=== PATIENT | female | born 1945 | race Caucasian/White ===

== ENCOUNTER 2023-12-30 17:01 | Inpatient (IN) | payer OTHER, BC ==
[2023-12-30 18:14] LABS: Absolute Lymphocytes (CBC) 0.7 K/uL (0.7-4.9); Absolute Monocytes 0.8 K/uL (0.1-1.3); Absolute Neutrophil 14.9 K/uL (1.8-8.0); Basophils % 0.1 % (0-1.3); Eosinophils % 0.1 % (0-4.4); Hematocrit 40.2 % (36.0-45.0); Hemoglobin 13.6 g/dL (12.0-15.0); Lymphocytes % 4.1 % (15.3-44.8); MCH 30.2 pg (27.0-35.0); MCHC 33.8 g/dL (32.0-36.0); MCV 89.4 fL (80-100); Monocytes % 4.9 % (3.3-12.3); Neutrophils % 90.8 % (41.7-73.7); Nucleated Red Blood Cells % 0.1 % (0-0); Platelets 398 thou/uL (152-406)
[2023-12-30 18:31] LABS: Specific Gravity > 1.030 (1.005-1.030); Sqamous Epithelial 20-50 /HPF (None Seen); Urine Bacteria <20 /HPF (<20); Urine Bilirubin 1+ (Negative); Urine Blood Negative (Negative); Urine Clarity Extremely Turbid (Clear); Urine Color Yellow (Yellow); Urine Culture Reflex Order NOT NEEDED; Urine Glucose NEGATIVE (Negative); Urine Ketones 2+ (Negative); Urine Microscopic Reflex YN ORDER UMIC; Urine Mucus 4+ /HPF (None Seen); Urine Nitrite NEGATIVE (Negative); Urine Protein 2+ (Negative); Urine RBC <5 /HPF (None Seen); Urine Urobilinogen 1+ (Normal); Urine WBC <5 /HPF (<5); Urine pH 5.5 (5.0-7.0)
[2023-12-30 18:35] LABS: Anion Gap 16.1 mEq/L (5.0-15.0); Bilirubin Total 0.7 mg/dL (0.2-1.0); Globulin 4.2 g/dL (2.3-3.5); Potassium 4.1 mEq/L (3.5-5.1); Protein, Total 8.2 g/dL (6.4-8.2)
[2023-12-30 18:36] LABS: Blood Morphology Comment NOT SEEN (NOT SEEN); Platelet Estimate ADEQ; White Blood Cell Scan OK (OK)
--- NOTE | 2023-12-30 18:55 | RAD REPORT ---
EXAM DESCRIPTION: US - Abdomen Exam Limited - 12/30/2023 6:49 pm CLINICAL HISTORY: ABD PAIN COMPARISON: <Comparisons> FINDINGS: The gallbladder demonstrates no gallstones. No pericholecystic fluid or gallbladder wall t hickening. The common bile duct is normal measuring 3 mm. The liver demonstrates no findings of intrahepatic biliary dilatation. IMPRESSION: Unremarkable examination.
[2023-12-30] MEDS ORDERED: FAMOTIDINE 20 MG/2 ML VIAL IV ONE (19:15)
[2023-12-30] MEDS ORDERED: NA CHLORIDE 0.9% 1,000 ML ONE (19:15)
[2023-12-30] MEDS ORDERED: ONDANSETRON 4 MG/2 ML VIAL ONE ×2 (19:15→23:55)
--- NOTE | 2023-12-30 19:40 | RAD REPORT ---
EXAM DESCRIPTION: CTAbdomen Pelvis W Contrast - 12/30/2023 7:32 pm CLINICAL HISTORY: Abdominal pain. ABD PAIN COMPARISON: <Comparisons> TECHNIQUE: Biphasic CT imaging of the abdomen and pelvis was performed with 100 ml non-ionic IV cont rast. All CT scans are performed using dose optimization technique as appropriate and may include automated exposure control or mA/KV adjustment according to patient size. FINDINGS: The lung bases are clear. The liver, spleen, pancreas, adrenal glands and kidneys are within normal limits. Multiple fluid-filled dilated small bowel loops are present throughout the abdomen compatible with a moderate mechanical small-bowel obstruction. No free air is seen. 4 cm jejunal diverticula noted. No evidence of significant lymphadenopathy. Mild lumbar degenerative changes. IMPRESSION: Multiple fluid-filled dilated small bowel loops compatible with moderate mechanical smal l-bowel obstruction.
--- NOTE | 2023-12-30 20:00 | EDPHYS ---
Physician Documentation [facility] Name: Cassy Del Rio Age: 78 yrs Sex: Female : 1945 Arrival Date: 12/30/2023 Time: 17:01 Bed 20 Private MD: Srinivas [facility] ED Physician Faustino Martino HPI: 12/29 18:15 This 78 yrs old Female presents to ER via Ambulatory with complaints of Vomiting. kb 18:15 Pt is a 78 year old female who presents for vomiting and upper abd pain that started kb this morning. Denies diarrhea/constipation, fever. States she is unable to tolerate anything by mouth. Denies sick contacts. . Historical: - Allergies: 17:27 No Known Allergies; ap3 - Home Meds: 17:27 None [Active]; ap3 - PMHx: 17:27 None; ap3 - Immunization history:: Client reports receiving the 2nd dose of the Covid vaccine. - Infectious Disease History:: Denies. - Social history:: Smoking status: Patient denies any tobacco usage or history of. ROS: 18:15 Constitutional: As per HPI kb Exam: 18:15 Constitutional: This is a well developed, well nourished patient who is awake, alert, kb and in no acute distress. Head/Face: Normocephalic, atraumatic. ENT: Moist Mucous membranes Cardiovascular: Regular rate Respiratory: Respirations even and unlabored. No increased work of breathing. Talking in full sentences Skin: Warm, dry with normal turgor. Normal color. MS/ Extremity: Pulses equal, no cyanosis. Neurovascular intact. Full, normal range of motion. Neuro: Awake and alert, GCS 15, oriented to person, place, time, and situation. Moves all extremities. Normal gait. 18:15 Abdomen/GI: Inspection: abdomen appears normal, Bowel sounds: normal, Palpation: soft, in all quadrants, mild abdominal tenderness, in the epigastric area and right upper quadrant, Vital Signs: 17:26 BP 139 / 77; Pulse 82; Resp 17; Temp 98.1; Pulse Ox 100% ; Weight 63.05 kg; Height 5 mb9 ft. 5 in. ; 19:25 BP 134 / 74; Pulse 74; Resp 18; Pulse Ox 100% on R/A; mb9 17:26 Body Mass Index 23.13 (63.05 kg, 165.1 cm) mb9 MDM: 17:25 Patient medically screened. kb 18:16 Differential diagnosis: Nonspecific abd pain, gastritis, cholecystitis, cholelithiasis. kb Data reviewed: vital signs, nurses notes. 19:58 Consideration of Admission/Observation Patient was admitted/placed on observation. kb Escalation of care including admission/observation considered. Management of patient was discussed with the following: Hospitalist: Dr Dunn accepts pt for admission. Signal Helper: Dr Ferrell accepts pt for consult. Counseling: I had a detailed discussion with the patient and/or guardian regarding the historical points, exam findings, and any diagnostic results supporting the discharge/admit diagnosis, lab results, radiology results, the need for further work-up and treatment in the hospital. 12/29 17:29 Order name: CBC with Diff; Complete Time: 18:43 kb 12/29 17:29 Order name: CMP; Complete Time: 18:43 kb 12/29 17:29 Order name: Lipase; Complete Time: 18:43 kb 12/29 17:29 Order name: Urinalysis w/ reflexes; Complete Time: 18:43 kb 12/29 18:37 Order name: CBC Smear Scan; Complete Time: 18:43 EDID 12/29 20:10 Order name: CBC with Automated Diff [facility] 12/29 20:10 Order name: CBC with Automated Diff [facility] 12/29 20:10 Order name: Comprehensive Metabolic Panel [facility] 12/29 20:10 Order name: Comprehensive Metabolic Panel [facility] 12/29 20:10 Order name: Lipid Profile [facility] 12/29 20:10 Order name: Lipid Profile [facility] 12/29 17:29 Order name: US Abdomen Limited; Complete Time: 18:56 kb 12/29 18:56 Order name: CT Abd/Pelvis - IV Contrast Only; Complete Time: 19:43 kb 12/29 20:15 Order name: Abdomen 1 View (KUB) EDID 12/29 20:15 Order name: Abdomen 1 View (KUB) EDID 12/29 20:15 Order name: Abdomen 1 View (KUB) [facility] 12/29 20:10 Order name: CONS Physician Consult [facility] 12/29 17:29 Order name: IV Saline Lock; Complete Time: 18:06 kb 12/29 17:29 Order name: Labs collected and sent; Complete Time: 18:06 kb Administered Medications: 19:15 Drug: NS 0.9% IV 1000 ml IV at 1 bolus Per protocol; 1000 mL bolus Route: IV; Rate: 1 mb9 bolus; Site: left antecubital; 19:21 Drug: Famotidine IVP 20 mg IVP once; dilute with 10 mL 0.9% NaCl; give over 2 minutes mb9 Route: IVP; Site: left antecubital; 20:57 Follow up: Response: No adverse reaction cp4 19:22 Drug: Ondansetron IVP 4 mg IVP once; over 2 minutes Route: IVP; Site: left antecubital; mb9 20:57 Follow up: Response: No adverse reaction cp4 Disposition Summary: 12/30/23 19:59 Hospitalization Ordered Notes: Hospitalization Status: Observation kb Provider: Isamar Dunn Condition: Stable kb Problem: new kb Symptoms: are unchanged kb Bed/Room Type: Standard kb Location: Telemetry/MedSurg (observation)(12/31/23 13:25) 6 Room Assignment: [facility](12/31/23 13:25) 6 Diagnosis - Moderate mechanical small bowel obstruction kb Forms: - Medication Reconciliation Form kb - SBAR form kb - Leadership Thank You Letter kb Signatures: Dispatcher [employer] EDEufemia Uribe, ENEDINA COLEYP-Alfredo Gramajo, RN RN jb4 Chen Gifford RN RN ap3 Klarissa Zapata RN RN mb9 Hilda Oseguera bc6 Tere Melvin cp4 Corrections: (The following items were deleted from the chart) 22: 19:59 Telemetry/MedSurg (observation) kb jb4 22: 19:59 kb jb4 12/30 13:25 06 22:09 [facility] ER HOLD jb bc6 12/30 13: 06 22:09 ERHOLD- [facility]6
--- NOTE | 2023-12-30 20:00 | ER ---
Nurse's Notes [facility] Name: Cassy Del Rio Age: 78 yrs Sex: Female : 1945 Arrival Date: 12/30/2023 Time: 17:01 Bed 20 Private MD: Akbar Espino Diagnosis: Moderate mechanical small bowel obstruction Presentation: 12/29 17:26 Chief complaint: Patient states: she started vomiting this morning. patient states the ap3 vomiting is a burning sensation. Coronavirus screen: At this time, the client does not indicate any symptoms associated with coronavirus-19. Ebola Screen: No symptoms or risks identified at this time. Initial Sepsis Screen: Does the patient meet any 2 criteria? No. Patient's initial sepsis screen is negative. Does the patient have a suspected source of infection? No. Patient's initial sepsis screen is negative. Risk Assessment: Do you want to hurt yourself or someone else? Patient reports no desire to harm self or others. Onset of symptoms was December 30, 2023. 17:26 Method Of Arrival: Ambulatory ap3 17:26 Acuity: SARAN 3 ap3 Triage Assessment: 17:27 General: Appears in no apparent distress. Behavior is calm, cooperative, appropriate ap3 for age. Pain: Complains of pain in abdomen Quality of pain is described as burning, Pain began this morning. Neuro: Level of Consciousness is awake, alert, obeys commands, Oriented to person, place, time, situation, Appropriate for age. Cardiovascular: Patient's skin is warm and dry. Respiratory: Airway is patent Respiratory effort is even, unlabored, Respiratory pattern is regular, symmetrical. GI: Reports lower abdominal pain, upper abdominal pain, nausea, vomiting. Historical: - Allergies: 17:27 No Known Allergies; ap3 - Home Meds: 17:27 None [Active]; ap3 - PMHx: 17:27 None; ap3 - Immunization history:: Client reports receiving the 2nd dose of the Covid vaccine. - Infectious Disease History:: Denies. - Social history:: Smoking status: Patient denies any tobacco usage or history of. Screenin:28 Abuse screen: Denies threats or abuse. ap3 17:28 Nutritional screening: No deficits noted. Tuberculosis screening: No symptoms or risk ap3 factors identified. 19:10 [facility] ED Fall Risk Assessment (Adult) History of falling in the last 3 months, mb9 including since admission No falls in past 3 months (0 pts) Confusion or Disorientation No (0 pts) Intoxicated or Sedated No (0 pts) Impaired Gait No (0 pts) Mobility Assist Device Used No (0 pt) Altered Elimination No (0 pt) Score/Fall Risk Level 0 - 2 = Low Risk Oriented to surroundings, Maintained a safe environment, Educated pt \T\ family on fall prevention, incl call for assistance when getting out of bed. Assessment: 19:20 General: Appears in no apparent distress. Behavior is calm, cooperative. Pain: mb9 Complains of pain in abdomen Pain radiates to right upper quadrant and epigastric area Quality of pain is described as throbbing, Pain began suddenly. Neuro: Ch Agitation-Sedation Scale (RASS): 0 - Alert and Calm Level of Consciousness is awake, alert, obeys commands, Oriented to person, place, time, situation, Appropriate for age. Cardiovascular: Patient's skin is warm and dry. Respiratory: Airway is patent Respiratory effort is even, unlabored, Respiratory pattern is regular, symmetrical. GI: Abdomen is flat, non-distended, Bowel sounds present X 4 quads. Abd is soft and non tender X 4 quads. Reports nausea, vomiting. : No signs and/or symptoms were reported regarding the genitourinary system. EENT: No signs and/or symptoms were reported regarding the EENT system. Derm: Skin is pink, warm \T\ dry. Musculoskeletal: Range of motion: intact in all extremities. Vital Signs: 17:26 BP 139 / 77; Pulse 82; Resp 17; Temp 98.1; Pulse Ox 100% ; Weight 63.05 kg; Height 5 mb9 ft. 5 in. ; 19:25 BP 134 / 74; Pulse 74; Resp 18; Pulse Ox 100% on R/A; mb9 17:26 Body Mass Index 23.13 (63.05 kg, 165.1 cm) mb9 ED Course: 17:04 Patient arrived in ED. mr 17:04 Akbar Espino DO is Private Physician. mr 17:25 Eufemia Ryan FNP-C is [facility]. kb 17:25 Faustino Martino MD is Attending Physician. kb 17:27 Triage completed. ap3 17:28 Arm band placed on right wrist. ap3 18:06 CBC with Diff Sent. bc6 18:06 CMP Sent. bc6 18:06 Lipase Sent. bc6 18:06 Initial lab(s) drawn, by me, sent to lab. Inserted saline lock: 22 gauge in left bc6 antecubital area, using aseptic technique. Blood collected. 18:51 US Abdomen Limited In Process Unspecified. EDMS 19:20 Klarissa Zapata, RN is Primary Nurse. mb9 19:21 No provider procedures requiring assistance completed. mb9 19:30 Placed in gown. Bed in low position. Call light in reach. Side rails up X 1. Provided mb9 Education on: press call light if needing anything. Client placed on continuous cardiac and pulse oximetry monitoring. NIBP monitoring applied. 19:34 CT Abd/Pelvis - IV Contrast Only In Process Unspecified. EDMS 19:59 Isamar Dunn MD is Hospitalizing Provider. kb 20:30 Report given to SELENE Carranza. mb9 20:30 Patient admitted, IV remains in place. mb9 20:57 Tere Melvin is Primary Nurse. cp4 Administered Medications: 19:15 Drug: NS 0.9% IV 1000 ml IV at 1 bolus Per protocol; 1000 mL bolus Route: IV; Rate: 1 mb9 bolus; Site: left antecubital; 19:21 Drug: Famotidine IVP 20 mg IVP once; dilute with 10 mL 0.9% NaCl; give over 2 minutes mb9 Route: IVP; Site: left antecubital; 20:57 Follow up: Response: No adverse reaction cp4 19:22 Drug: Ondansetron IVP 4 mg IVP once; over 2 minutes Route: IVP; Site: left antecubital; mb9 20:57 Follow up: Response: No adverse reaction cp4 Medication: 20:47 VIS not applicable for this client. mb9 Outcome: 19:59 Decision to Hospitalize by Provider. kb 12/30 01:08 Admitted to ER Hold. Please see [facility] for further documentation. cp4 Condition: stable Instructed on the need for admit, 14:40 Patient left the ED. hb Signatures: Dispatcher [employer] EDWV Eufemia Ryan, PRINCIPAL NETWORK ARCHITECT-C PRINCIPAL NETWORK ARCHITECT-Klarissa Bhandari, Reg Reg Maritza Ziegler RN RN Chen Freeman RN RN ap3 Klarissa Zapata RN RN mb9 Hilda Oseguera 6 Tere Melvin cp4 Corrections: (The following items were deleted from the chart) 12/29 19:10 17:26 BP 139 / ???; Pulse 82bpm; Resp 17bpm; Pulse Ox 100%; Temp 98.1F; 63.05 kg; mb9 Height 5 ft. 5 in.; BMI: 23.1; ap3
[2023-12-30] MEDS ORDERED: MORPHINE 2 MG/ML SYR IV PRN (20:05)
[2023-12-30] MEDS ORDERED: ALBUTEROL 2.5 MG/3 ML NEB SOL NEB PRN (20:05)
--- NOTE | 2023-12-30 20:12 | P.HP ---
Certification for Inpatient With expected LOS: >2 Midnights Patient will require the following post-hospital care: None Practitioner: I am a practitioner with admitting privileges, knowledge of patient current condition, hospital course, and medical plan of care. Services: Services provided to patient in accordance with Admission requirements found in Title 42 Section 412.3 of the Code of Federal Regulations Patient History Date of Service: 12/30/23 Reason for admission: abdominal pain History of Present Illness: 78-year-old female with past medical history of diet-controlled hypertension, previous hysterectomy, who presented with abdominal pain, right upper quadrant, onset earlier this morning upon waking up. Pain is associated with recurrent bouts of vomiting and nausea. Patient denies any associated diarrhea or constipation. She has not had any bowel movement since the last 1 day. She denies any fever or chills. She had his colonoscopy 1 year ago that was u nremarkable Arrival in the ED vital signs were stable, CT of the abdomen and pelvics shows evidence of multiple loops of bowel consistent with mechanical small bowel obstruction. Accidentally noted 4 cm jejunal diverticulum. CBC shows WBC of 16,000 but with no differential significant differential and BMP were unremarkable. General surgery consult has been obtained. Patient has been admitted for small bowel obstruction Allergies No Known Allergies Allergy (Unverified 09/11/16 18:50) - Past Medical/Surgical History -: Hypertension -: Hysterectomy - Family History Family History: Reviewed- Non-Contributory - Social History Smoking Status: Never smoker Counseled patient to stop smoking for: less than 10 minutes Smoking therapy provided: No Patient receptive to therapy: No Alcohol use: No CD- Drugs: No Caffeine use: Yes Place of Residence: Home Review of Systems Gastrointestinal: Nausea, Abdominal Pain, Distention Physical Examination - Physical Exam General: Alert, In no apparent distress, Oriented x3 HEENT: Atraumatic, Normocephalic Neck: Supple, 2+ carotid pulse no bruit, JVD not distended Respiratory: Clear to auscultation bilaterally, Normal air movement Cardiovascular: No edema, Normal pulses, Regular rate/rhythm, Normal S1 S2 Gastrointestinal: No ascites, No tenderness, Hyperactive, Distended Musculoskeletal: No clubbing, No swelling Neurological: Normal gait, Normal speech, Normal strength at 5/5 x4 extr, Cranial nerves 3-12 intact - Studies Laboratory Data (last 24 hrs) 12/30/23 12/30/23 18:05 18:05 WBC 16.40 H Hgb 13.6 Hct 40.2 Plt Count 398 Sodium 138 Potassium 4.1 BUN 19 H Creatinine 0.92 Glucose 174 H Total Bilirubin 0.7 AST 13 L ALT 19 Alkaline Phosphatase 80 Lipase 20 Assessment and Plan - Plan Impression Small bowel obstruction Hypertensiondiet controlled LeukocytosisMay be reactive Plan Admit to inpatient General: Surgery consult in a.m. Keep n.p.o. NG tube with low suction if recurrent bouts of vomiting Daily KUB to monitor progression of obstruction Antiemetics as needed Monitor WBC, no empirical antibiotics for now Pain control Lovenox for DVT prophylaxis Full code Possible discharge in 2 to 3 days. - Advance Directives Does patient have a Living Will: No Does patient have a Durable POA for Healthcare: No Physician Review: Patient Assessed, Agree with Above Assessment and Plan Time Spent Managing Pts Care (In Minutes): 65
[2023-12-30] MEDS: D5 0.9 NS 1,000 ML IV SCH (21:00)
[2023-12-30] MEDS: FAMOTIDINE 20 MG/2 ML VIAL IV SCH (21:00)
[2023-12-30] MEDS ORDERED: FAMOTIDINE 20 MG TAB ONE (22:32)
[2023-12-30] MEDS ORDERED: D5W 0 ML IV ONE (22:33)
[2023-12-30] MEDS ORDERED: D5 0.9 NS 1,000 ML IV ONE (23:00)
[2023-12-30] MEDS: ONDANSETRON 4 MG/2 ML VIAL IV PRN (23:57)
[2023-12-31 04:47] LABS: Absolute Lymphocytes (CBC) 0.8 K/uL (0.7-4.9); Absolute Monocytes 0.9 K/uL (0.1-1.3); Absolute Neutrophil 13.1 K/uL (1.8-8.0); Basophils % 0.2 % (0-1.3); Hematocrit 37.8 % (36.0-45.0); Hemoglobin 12.8 g/dL (12.0-15.0); Lymphocytes % 5.2 % (15.3-44.8); MCH 30.4 pg (27.0-35.0); MCV 89.4 fL (80-100); MPV 8.1 fL (7.6-11.3); Monocytes % 6.3 % (3.3-12.3); Platelets 357 thou/uL (152-406); RBC Red Blood Cell Count 4.23 M/uL (3.86-4.86); Red Cell Distribution Width 13.1 % (12.1-15.2)
[2023-12-31 04:49] LABS: Neutrophils % 88.3 % (41.7-73.7)
[2023-12-31 05:02] LABS: ALT/SGPT 16 U/L (13-56); Albumin 3.3 g/dL (3.4-5.0); Albumin/Globulin Ratio 0.9 (1.1-1.8); Alkaline Phosphatase 67 U/L (45-117); BUN Blood Urea Nitrogen 15 mg/dL (7-18); Bicarbonate 30 mEq/L (21-32); Bilirubin Total 0.6 mg/dL (0.2-1.0); Globulin 3.7 g/dL (2.3-3.5); Glomerular Filtration Rate 71 ml/min (=/>90); Glucose Level 188 mg/dL (74-106); HDL Cholesterol 72 mg/dL (40-60); LDL Cholesterol, Calculated 80 mg/dL (<130); LDL Cholesterol,Calc NonReport 80; Sodium Level 136 mEq/L (136-145)
[2023-12-31 05:15] LABS: AST/SGOT < 10 U/L (15-37)
--- NOTE | 2023-12-31 07:30 | P.PN ---
Date of Service: 12/31/23 Subjective: emesis this morning ~4am still feels distended, no flatus, no BM no worsening ROS: 10 point ROS as noted above, otherwise negative Physical Exam: GEN: Alert, oriented, NAD HEENT: Normal conjunctiva, sclera anicteric CV: Regular rate and rhythm, no edema Pulm: Nonlabored respirations on room air, clear bilaterally ABD: abdominal tenderness, moderately distended Neuro: Normal speech, normal affect vitals reviewed Problem List: Mechanical small bowel obstruction Incidental 4cm jejunal diverticula Hypertension-diet controlled Reports RUQ / upper abdominal pain with associated nausea/vomiting for ~1-2 days. Denies diarrhea/constipation/fever reports colonoscopy ~1 year ago was unremarkable CT abdomen (12/29): Moderate small bowel obstruction. 4 cm jejunal diverticula KUB (12/30): mild-mod SBO minimally less dilated Dr. Ferrell, general surgeon consulted to eval continue IV fluids while NPO PRN analgesics / antiemetics afebrile, Leukocytosis improving 16.4 -> 14.8 (12/30) recommended NGT, patient would like to defer for now discussed if another episode of emesis or any worsening symptoms, would strongly recommend NGT placement VTE: Lovenox Code: Full Dispo: Home, ~2-3 days Pending resolution of SBO
--- NOTE | 2023-12-31 07:32 | RAD REPORT ---
EXAM DESCRIPTION: RAD - Abdomen 1 View (KUB) - 12/31/2023 4:39 am CLINICAL HISTORY: Abdomen pain FINDINGS: Mildly to moderately dilated small bowel is minimally less dilated than December 30, 2023. Air within the colon remains diminished. This is compatible with small bowel obstruction
[2023-12-31] MEDS: ENOXAPARIN 40 MG/0.4 ML SQ SCH (09:00)
[2023-12-31] MEDS ORDERED: ENOXAPARIN 40 MG/0.4 ML SQ ONE (09:00)
[2023-12-31] MEDS ORDERED: FAMOTIDINE 20 MG/2 ML VIAL IV ONE (09:01)
[2023-12-31] MEDS ORDERED: D5 0.9 NS 1,000 ML IV ONE (09:55)
[2023-12-31] MEDS: PNEUMOCOCCAL VACCINE 0.5 ML IMVAC ONE (12:00)
[2024-01-01 06:54] LABS: Absolute Eosinophils 0.1 K/uL (0-0.5); Absolute Lymphocytes (CBC) 0.9 K/uL (0.7-4.9); Absolute Monocytes 0.6 K/uL (0.1-1.3); Absolute Neutrophil 4.8 K/uL (1.8-8.0); Basophils % 0.3 % (0-1.3); Eosinophils % 1.2 % (0-4.4); Hematocrit 31.4 % (36.0-45.0); Hemoglobin 10.5 g/dL (12.0-15.0); Lymphocytes % 14.7 % (15.3-44.8); MCH 30.4 pg (27.0-35.0); MCHC 33.4 g/dL (32.0-36.0); MPV 8.6 fL (7.6-11.3); Neutrophils % 74.8 % (41.7-73.7); Platelets 272 thou/uL (152-406); RBC Red Blood Cell Count 3.45 M/uL (3.86-4.86); Red Cell Distribution Width 12.9 % (12.1-15.2)
[2024-01-01 07:07] LABS: Albumin 2.5 g/dL (3.4-5.0); Albumin/Globulin Ratio 0.8 (1.1-1.8); Alkaline Phosphatase 50 U/L (45-117); Anion Gap 6.5 mEq/L (5.0-15.0); BUN Blood Urea Nitrogen 16 mg/dL (7-18); Bicarbonate 25 mEq/L (21-32); Bilirubin Total 0.3 mg/dL (0.2-1.0); Globulin 3.1 g/dL (2.3-3.5); Glomerular Filtration Rate 93 ml/min (=/>90); Glucose Level 132 mg/dL (74-106); Magnesium 2.1 mg/dL (1.6-2.4); Potassium 3.5 mEq/L (3.5-5.1); Protein, Total 5.6 g/dL (6.4-8.2); Sodium Level 142 mEq/L (136-145)
[2024-01-01 07:18] LABS: ALT/SGPT < 14 U/L (13-56); AST/SGOT < 10 U/L (15-37)
--- NOTE | 2024-01-01 07:35 | RAD REPORT ---
EXAM DESCRIPTION: RAD - Abdomen 1 View (KUB) - 01/01/2024 6:10 am CLINICAL HISTORY: Abdomen pain FINDINGS: Moderately dilated small bowel appears mildly worsened since the prior exam. Air in the co kevin is diminished. This is compatible with a worsening small bowel obstruction
--- NOTE | 2024-01-01 08:54 | P.PN ---
Date of Service: 01/01/24 Subjective: 1 liquid BM with relief earlier this morning after repeat KUB this morning doesn't feel anything is worse. Abdomen feels softer on exam agreeable to NGT if needed but would like to avoid if possible no nausea today. Hasn't need zofran in ~2 days afebrile ROS: 10 point ROS as noted above, otherwise negative Physical Exam: GEN: Alert, oriented, NAD HEENT: Normal conjunctiva, sclera anicteric CV: Regular rate and rhythm, no edema Pulm: Nonlabored respirations on room air, clear bilaterally ABD: mild-mod abdominal tenderness, mild distention, but soft Neuro: Normal speech, normal affect vitals reviewed Problem List: Mechanical small bowel obstruction Incidental 4cm jejunal diverticula Hypertension-diet controlled Reported RUQ / upper abdominal pain with associated nausea/vomiting for ~1-2 days. Denies diarrhea/constipation/fever colonoscopy ~1 year ago was unremarkable per patient CT abdomen (12/29): Moderate small bowel obstruction. 4 cm jejunal diverticula KUB (12/30): mild-mod SBO minimally less dilated repeat KUB (12/31): mildly worsening SBO patient feels some improvement after having a BM after KUB xray. +No nausea in > [address] Ferrell, general surgeon consulted continue IV fluids while NPO PRN analgesics / antiemetics afebrile, Leukocytosis resolved (12/31) clinically improving, can hold off NG tube for now discussed if worsens, will need NG tube possible advance diet later today vs tomorrow VTE: Lovenox Code: Full Dispo: Home, ~1-2 days Pending resolution of SBO
[2024-01-01] MEDS: HYDRALAZINE HCL 20 MG/ML VIAL IV PRN (17:17)
--- NOTE | 2024-01-02 06:48 | RAD REPORT ---
EXAM DESCRIPTION: RAD - Abdomen 1 View (KUB) - 01/02/2024 5:41 am CLINICAL HISTORY: f/u SBO COMPARISON: Abdomen 1 View (KUB) dated 01/01/2024; Abdomen 1 View (KUB) dated 12/31/2023; Abdomen Pelv is W Contrast dated 12/30/2023 FINDINGS: Similar diffusely dilated small bowel measuring up to 4 cm. No acute osseous abnormality.V isualized lungs are unremarkable.No abnormal calcifications. IMPRESSION: No significant change. Findings remain consistent with small bowel obstruction.
--- NOTE | 2024-01-02 11:37 | P.PN ---
Date of Service: 01/02/24 Subjective: reports ~3 loose BM this morning before KUB feels her appetite is starting to come back afebrile no nausea/vomiting ROS: 10 point ROS as noted above, otherwise negative Physical Exam: GEN: Alert, oriented, NAD HEENT: Normal conjunctiva, sclera anicteric CV: Regular rate and rhythm, no edema Pulm: Nonlabored respirations on room air, clear bilaterally ABD: mild-mod abdominal tenderness, mild distention, but soft Neuro: Normal speech, normal affect vitals reviewed Problem List: Mechanical small bowel obstruction Incidental 4cm jejunal diverticula Hypertension-diet controlled Reported RUQ / upper abdominal pain with associated nausea/vomiting for ~1-2 days. Denies diarrhea/constipation/fever colonoscopy ~1 year ago was unremarkable per patient CT abdomen (12/29): Moderate small bowel obstruction. 4 cm jejunal diverticula KUB (12/30): mild-mod SBO minimally less dilated repeat KUB (12/31): mildly worsening SBO repeat KUB (01/01): no significant change to SBO Dr. Ferrell, general surgeon consulted continue IV fluids while NPO PRN analgesics / antiemetics afebrile, Leukocytosis resolved (12/31) clinically improving, Dr. Ferrell at bedside okay with holding off on NG tube for now. (01/01) possible advance diet later today vs tomorrow VTE: Lovenox Code: Full Dispo: Home, ~1-2 days Pending resolution of SBO
[2024-01-02] MEDS: METOPROLOL TARTRATE 5 MG/5 ML INJ IV ONE ×2 (14:49→15:21)
[2024-01-02] MEDS: METOPROLOL TARTRATE 5 MG/5 ML INJ IV STA ×2 (14:50→15:15)
[2024-01-02] MEDS: KCL 20 MEQ/100 mL IVPB 100 ML IV ONE (14:59)
[2024-01-02] MEDS: MAGNESIUM SULFATE 1 gm IVPB 1 GM/100 ML BAG IV ONE ×2 (14:59→15:12)
[2024-01-02] MEDS: KCL 20 MEQ/100 mL IVPB 20 MEQ/100 ML BAG IV SCH (15:12)
[2024-01-02] MEDS: METOPROLOL TAR 25 MG TAB PO SCH (16:21)
[2024-01-02] MEDS ORDERED: AMIODARONE HCL 450 MG in D5W 241 ML IV SCH (18:00)
[2024-01-02] MEDS: AMIODARONE HCL 150 MG in D5W 100 ML IV STA (18:42)
[2024-01-02] MEDS: [UNRECOGNIZED DRUG - OTHER] IV ONE (19:47)
[2024-01-03 06:31] LABS: Absolute Eosinophils 0.1 K/uL (0-0.5); Absolute Lymphocytes (CBC) 1.1 K/uL (0.7-4.9); Absolute Monocytes 0.6 K/uL (0.1-1.3); Absolute Neutrophil 4.3 K/uL (1.8-8.0); Basophils % 0.2 % (0-1.3); Eosinophils % 1.1 % (0-4.4); Hematocrit 35.5 % (36.0-45.0); Hemoglobin 11.7 g/dL (12.0-15.0); Lymphocytes % 18.1 % (15.3-44.8); MCH 29.6 pg (27.0-35.0); MCHC 32.9 g/dL (32.0-36.0); MCV 90.1 fL (80-100); MPV 8.4 fL (7.6-11.3); Monocytes % 10.1 % (3.3-12.3); Neutrophils % 70.5 % (41.7-73.7); Platelets 320 thou/uL (152-406); RBC Red Blood Cell Count 3.93 M/uL (3.86-4.86)
--- NOTE | 2024-01-03 06:41 | RAD REPORT ---
EXAM DESCRIPTION: RAD - Abdomen 1 View (KUB) - 01/03/2024 6:16 am CLINICAL HISTORY: sbo COMPARISON: Abdomen 1 View (KUB) dated 01/02/2024; Abdomen 1 View (KUB) dated 01/01/2024; Abdomen 1 View (KUB) dated 12/31/2023; Abdomen Pelvis W Contrast dated 12/30/2023 FINDINGS/IMPRESSION: No significant change in small bowel dilatation. Findings remain consistent wit h small bowel obstruction.
[2024-01-03 06:49] LABS: ALT/SGPT 15 U/L (13-56); Albumin 2.9 g/dL (3.4-5.0); Albumin/Globulin Ratio 0.9 (1.1-1.8); Alkaline Phosphatase 58 U/L (45-117); Anion Gap 7.1 mEq/L (5.0-15.0); BUN Blood Urea Nitrogen 5 mg/dL (7-18); Bicarbonate 22 mEq/L (21-32); Bilirubin Total 0.2 mg/dL (0.2-1.0); Globulin 3.2 g/dL (2.3-3.5); Glomerular Filtration Rate 92 ml/min (=/>90); Glucose Level 120 mg/dL (74-106); Magnesium 2.2 mg/dL (1.6-2.4); Potassium 3.1 mEq/L (3.5-5.1); Protein, Total 6.1 g/dL (6.4-8.2); Sodium Level 146 mEq/L (136-145)
[2024-01-03 07:00] LABS: AST/SGOT < 10 U/L (15-37)
--- NOTE | 2024-01-03 07:42 | P.PN ---
Date of Service: 01/03/24 Subjective: 3 small watery BM overnight. Doesn't feel more bloated/worse no nausea/vomiting. +intermittent burping converted into new onset a-fib yesterday. denies prior history of a-fib remains in a-fib. HR slightly improved today down to 110s ROS: 10 point ROS as noted above, otherwise negative Physical Exam: GEN: Alert, oriented, NAD HEENT: Normal conjunctiva, sclera anicteric CV: Irregularly Irregular Rate and rhythm, no edema Pulm: Nonlabored respirations on room air, clear bilaterally ABD: mild abdominal tenderness to deep palpation, mild distention, but soft Neuro: Normal speech, normal affect vitals reviewed Problem List: Mechanical small bowel obstruction Incidental 4cm jejunal diverticula Atrial-fibrillation with RVR, new onset Hypertension Mechanical small bowel obstruction Incidental 4cm jejunal diverticula Reported RUQ / upper abdominal pain with nausea/vomiting ~1-2 days. Denies diarrhea/constipation/fever colonoscopy ~1 year ago was unremarkable per patient CT abdomen (12/29): Moderate SBO. 4 cm jejunal diverticula no change in distention / SBO on repeat daily KUBS BM's seem to be distal decompression, no resolution yet Dr. Ferrell consulted small bowel series (01/02): ordered to further eval NPO, IVF afebrile, Leukocytosis resolved (12/31) Atrial-fibrillation with RVR, new onset Pt noted to have palpitations 01/01 and felt her heart was racing EKG: afib. HR in 120-140s at the time new onset, denies any history s/p IV lopressor, and PO lopressor with slight improvement, but was still 120-130s; down from 150-160, started amio remains in afib. HR slightly improved now in 100-110s continue IV amio, metoprolol monitor on telemetry repeat ekg cardiology consulted VTE: Lovenox Code: Full Dispo: Home, ~1-2 days Pending resolution of SBO / cardiac recs
[2024-01-03] MEDS: KCL 20 MEQ/100 mL IVPB 20 MEQ/100 ML BAG IV SCH ×2 (08:13→15:54)
[2024-01-03] MEDS ORDERED: AMIODARONE HCL 900 MG in Dextrose 5%-Water 482 ML IV SCH (13:00)
[2024-01-03] MEDS: AMIODARONE HCL 450 MG in D5W 241 ML IV SCH (13:43)
--- NOTE | 2024-01-03 14:42 | P.CNS ---
Date of Consult: 01/03/24 Chief Complaint: abdominal pain History of Present Illness: Patient with no significant PMH presented with small bowel obstruction started having AF w RVR during her hospital stay, denies any cardiac history but report occasional palpitations when get stomach upset. no chest pain, no SOB, no syncope. Allergies No Known Allergies Allergy (Unverified 09/11/16 18:50) Home Medications: Famotidine [Pepcid AC] 10 mg PO DAILY 12/31/23 - Past Medical/Surgical History -: Hypertension -: Hysterectomy - Social History Smoking Status: Never smoker Alcohol use: No CD- Drugs: No Caffeine use: Yes Place of Residence: Home Review of Systems 10-point ROS is otherwise unremarkable Physical Examination Temp Pulse Resp BP Pulse Ox 96.7 F L 113 H 15 113/83 96 01/03/24 08:00 01/03/24 08:00 01/03/24 08:00 01/03/24 08:00 01/03/24 08:00 General: Alert, In no apparent distress HEENT: Atraumatic, PERRLA, Mucous membr. moist/pink, EOMI, Sclerae nonicteric Neck: Supple, 2+ carotid pulse no bruit, No LAD, Without JVD or thyroid abnormality Respiratory: Clear to auscultation bilaterally, Normal air movement Cardiovascular: Irregular heart rate/rhythm Musculoskeletal: No tenderness Integumentary: No rashes Neurological: Normal gait, Normal speech, Normal tone, Normal affect Lymphatics: No axilla or inguinal lymphadenopathy - Problems (1) Atrial fibrillation Current Visit: Yes Status: Acute Plan: most likely new onset, patient is in RVR rate in the 110s Continue Amiodaorne drip per protocol. Continue Metoprolol 25 mg po BID anticoagulation is on hold now due to pending small bowel obstruction course of treatment. (2) Small bowel obstruction Current Visit: Yes Status: Acute Plan: per surgical team. (3) HTN (hypertension) Current Visit: Yes Status: Acute Plan: on metoprolol, continue to monitor. get Echo in am
--- NOTE | 2024-01-03 16:23 | RAD REPORT ---
EXAM DESCRIPTION: RAD - Small Bowel Series - 01/03/2024 3:32 pm CLINICAL HISTORY: eval sbo COMPARISON: Multiple prior day abdominal radiographs, CT 12/30/2023 FINDINGS: Cardiac Technician film shows dilated small bowel loops. Imaging obtained up to 6 hours. The small bowel remained dilated and no contrast could be seen within the colon. The small bowel measures up to 5 cm. Several small bowel diverticular noted which are acc umulating contrast. IMPRESSION: Small bowel obstruction. At 6 hours, no enteric contrast can be confirmed beyond the sit e of obstruction in the distal small bowel. Consider abdominal radiograph in 12 hours (in the morning ) to re-assess if the patient's condition permits.
--- NOTE | 2024-01-03 17:10 | P.PN ---
Subjective Date of Service: 01/03/24 Chief Complaint: abdominal pain Patient states she continues to have small bowel movements. She feels slightly more distended today than prior. No pain no nausea no vomiting. Physical Examination - Vital Signs Temperature: 97.1 F Blood Pressure: 143/91 Pulse: 123 Respirations: 16 Pulse Ox (%): 97 - Physical Exam General: Alert, In no apparent distress, Cooperative Cardiovascular: Irregular heart rate/rhythm Gastrointestinal: Other (Soft mild distention nontender no rebound or guarding no peritonitis. Mild tympany remains.) Neurological: Normal speech Assessment And Plan - Current Problems (Diagnosis) (1) Small bowel obstruction Current Visit: Yes Status: Acute Plan: Patient is a 78-year-old woman who presents with a small bowel obstruction. -Patient continues to have several small bowel movements daily. She has had 2 on previous days usually watery minimal volume to moderate volume. -She has no nausea or vomiting since the day of admission. -She had improved distention up until today. -She states that she feels somewhat more distended than yesterday. As such a small bowel series was performed which did not show any improvement, the small bowel series showed contrast stopping at the mid small bowel and similar orientation to previous imaging. -I have therefore discussed that we will repeat the KUB in the morning. If the contrast is not making it to the colon by this time I have explained that I recommend surgery at this point. -I have explained the risks benefits and alternatives of exploratory laparotomy possible small bowel resection and indicated procedures. Those risks are including but not limited to bleeding infection damage to surrounding tissues need for further operation procedures injury to any internal organ heart attacks blood clots and strokes cardiac arrhythmias and issues. In addition there are other unforeseen complications in the perioperative period related to anesthesia and not anesthesia related factors. Patient agrees to consider surgery in the morning but would like to repeat the KUB prior to agreeing to surgical intervention at this time. -I have recommended NG tube decompression at this time as well -Patient has new onset atrial fibrillation which is being treated with amiodarone by the hospitalist. -Continue n.p.o. at this time. Physician Review: Patient Assessed, Agree with Above Assessment and Plan
--- NOTE | 2024-01-03 18:06 | RAD REPORT ---
EXAM DESCRIPTION: RAD - Abdomen 1 View (KUB) - 01/03/2024 5:54 pm CLINICAL HISTORY: Placement of NGT/OGT. Post Insertion. COMPARISON: Abdomen 1 View (KUB) dated 01/03/2024; Abdomen 1 View (KUB) dated 01/02/2024; Abdomen 1 View (KUB) dated 01/01/2024; Abdomen 1 View (KUB) dated 12/31/2023; Small Bowel Series dated 01/03/2024 FINDINGS/IMPRESSION: Interval placement of an enteric tube . The tip is partially obscured by contra st within the stomach but is definitely below the diaphragm and presumably in satisfactory position.
[2024-01-03] MEDS: AMIODARONE HCL 900 MG in Dextrose 5%-Water 482 ML IV SCH (21:41)
[2024-01-04 06:59] LABS: Absolute Eosinophils 0.1 K/uL (0-0.5); Absolute Lymphocytes (CBC) 1.2 K/uL (0.7-4.9); Absolute Monocytes 0.7 K/uL (0.1-1.3); Absolute Neutrophil 4.8 K/uL (1.8-8.0); Basophils % 0.4 % (0-1.3); Eosinophils % 1.2 % (0-4.4); Hematocrit 34.4 % (36.0-45.0); Hemoglobin 11.8 g/dL (12.0-15.0); Lymphocytes % 17.2 % (15.3-44.8); MCH 30.7 pg (27.0-35.0); MCHC 34.3 g/dL (32.0-36.0); MCV 89.3 fL (80-100); MPV 8.9 fL (7.6-11.3); Monocytes % 10.5 % (3.3-12.3); Neutrophils % 70.7 % (41.7-73.7); Nucleated Red Blood Cells % 0.1 % (0-0); Platelets 334 thou/uL (152-406); RBC Red Blood Cell Count 3.85 M/uL (3.86-4.86)
[2024-01-04 07:13] LABS: Anion Gap 7.3 mEq/L (5.0-15.0); Magnesium 1.9 mg/dL (1.6-2.4); Potassium 3.3 mEq/L (3.5-5.1)
--- NOTE | 2024-01-04 07:44 | RAD REPORT ---
EXAM DESCRIPTION: RAD - Abdomen 1 View (KUB) - 01/04/2024 5:45 am CLINICAL HISTORY: f/u sbo Pain COMPARISON: Abdomen 1 View (KUB) dated 01/03/2024; Abdomen 1 View (KUB) dated 01/03/2024; Abdomen 1 View (KUB) dated 01/02/2024; Abdomen 1 View (KUB) dated 01/01/2024; Small Bowel Series dated 01/03/2024 FINDINGS: Moderately severe dilatation of small bowel loops are seen throughout the abdomen. Enteric tube tip is in the stomach. Contrast from recent small bowel series fills the majority of the dilated loops. A small amount contr ast is seen in the colon. No finding to indicate free air. IMPRESSION: Moderately severe mechanical small-bowel obstruction. The obstruction is not complete as a small volume of recently administered contrast is seen in the colon. However, the majority of the contrast continues to reside within the dilated small bowel loops.
[2024-01-04] MEDS: KCL 20 MEQ/100 mL IVPB 20 MEQ/100 ML BAG IV SCH ×2 (08:00→17:09)
--- NOTE | 2024-01-04 08:05 | P.PN ---
Date of Service: 01/04/24 Subjective: tentative plan for surgery today with Dr. Ferrell denies chest pain / palpitations / sensation of heart racing remains in a-fib. HR in 110-120s no worsening abdominal pains 2 loose BM overnight afebrile ROS: 10 point ROS as noted above, otherwise negative Physical Exam: GEN: Alert, oriented, NAD HEENT: Normal conjunctiva, sclera anicteric CV: Irregularly Irregular Rate and rhythm, no edema Pulm: Nonlabored respirations on room air, clear bilaterally ABD: mild abdominal tenderness to deep palpation, mild distention, but soft Neuro: Normal speech, normal affect NG tube in place vitals reviewed Problem List: Mechanical small bowel obstruction Incidental 4cm jejunal diverticula Atrial-fibrillation with RVR, new onset Hypertension Mechanical small bowel obstruction Incidental 4cm jejunal diverticula Reported RUQ / upper abdominal pain with nausea/vomiting ~1-2 days. Denies diarrhea/constipation/fever colonoscopy ~1 year ago was unremarkable per patient CT abdomen (12/29): Moderate SBO. 4 cm jejunal diverticula no change in distention / SBO on repeat daily KUBS BM's seem to be distal decompression, no resolution yet Dr. Ferrell consulted small bowel series (01/02): SBO with no significant improvement. Contrast stopped ~distal small bowel. repeat KUB (01/03): mod-severe SBO. majority of contrast within small bowel loops with a small volume of contrast in colon NGT to LIWS placed (01/02) tentative plan for surgery this afternoon NPO, IVF afebrile, Leukocytosis resolved (12/31) Atrial-fibrillation with RVR, new onset Pt noted to have palpitations 01/01 and felt her heart was racing EKG: afib. HR in 120-140s at the time new onset, denies any history s/p IV lopressor, and PO lopressor with slight improvement, but was still 120-130s; down from 150-160, started amio remains in afib. HR in 110-120. continue IV amio, metoprolol monitor on telemetry echo (01/03): completed - pending read cardiology consulted suspect will improve after SBO resolves VTE: Lovenox Code: Full Dispo: Home, ~2 days Pending resolution of SBO / cardiac recs
[2024-01-04] MEDS: METOPROLOL TARTRATE 5 MG/5 ML INJ IV STA (09:22)
--- NOTE | 2024-01-04 11:05 | P.PN ---
Subjective Date of Service: 01/04/24 Chief Complaint: abdominal pain Subjective: No new changes, No C/O voiced, Tolerating diet, Ambulating, Improving Review of Systems 10-point ROS is otherwise unremarkable Physical Examination - Vital Signs Temperature: 97.1 F Blood Pressure: 144/89 Pulse: 125 Respirations: 20 Pulse Ox (%): 98 - Physical Exam General: Alert, In no apparent distress HEENT: Atraumatic, PERRLA, EOMI Neck: Supple, JVD not distended Respiratory: Clear to auscultation bilaterally, Normal air movement Cardiovascular: Irregular heart rate/rhythm Musculoskeletal: No tenderness Integumentary: No rashes Neurological: Normal speech, Normal tone, Normal affect Lymphatics: No axilla or inguinal lymphadenopathy - Studies Medications List Reviewed: Yes Assessment And Plan - Current Problems (Diagnosis) (1) Atrial fibrillation Current Visit: Yes Status: Acute Plan: most likely new onset, patient is in RVR rate in the 110s Continue Amiodaorne drip per protocol. Continue Metoprolol 25 mg po BID anticoagulation is on hold now due to pending small bowel obstruction course of treatment. (2) Small bowel obstruction Current Visit: Yes Status: Acute Plan: per surgical team. (3) HTN (hypertension) Current Visit: Yes Status: Acute Plan: on metoprolol, continue to monitor. get Echo Physician Review: Patient Assessed, Agree with Above Assessment and Plan
[2024-01-04] MEDS ORDERED: KETAMINE HCL IN 0.9 % NACL 50 MG/5 ML SYRINGE IV ONE (12:04)
[2024-01-04] MEDS ORDERED: LIDOCAINE 1% MPF 5 ML VIAL ONE (12:04)
[2024-01-04] MEDS ORDERED: ONDANSETRON 4 MG/2 ML VIAL ONE (12:04)
[2024-01-04] MEDS ORDERED: propofoL 200 MG/20 ML VIAL IV ONE (12:05)
[2024-01-04] MEDS ORDERED: FENTANYL CITR 250 MCG/5 ML ONE (12:05)
[2024-01-04] MEDS ORDERED: ROCURONIUM 50 MG/5 ML VIAL IV ONE (12:05)
--- NOTE | 2024-01-04 12:05 | EKG ---
Test Date: 2024-01-02 Test Time: 14:47:38 Railroad Car Checker: CHARY MEASUREMENT RESULTS: Intervals: Rate: 162 AR: QRSD: 78 QT: 252 QTc: 413 [place]: P: AR: QRS: 2 T: 220 INTERPRETIVE STATEMENTS: Atrial fibrillation with rapid ventricular response Marked ST abnormality, possible inferolateral subendocardial injury Abnormal ECG No previous ECG available for comparison Electronically Signed On 01-04-24 12:03:39 CDT by Raphael Blount
[2024-01-04] MEDS: Ringers Lactate 1,000 ML IV ONE (12:15)
[2024-01-04] MEDS: AMIODARONE HCL 900 MG in Dextrose 5%-Water 482 ML IV SCH (12:30)
[2024-01-04] MEDS: METOPROLOL TARTRATE 5 MG/5 ML INJ IV ONE (12:38)
[2024-01-04] MEDS: NS 0.9% VIAL 20 ML ONE (13:24)
[2024-01-04] MEDS: BUPIVACAINE 0.25% PF 30 ML VIAL ONE (13:24)
--- NOTE | 2024-01-04 13:37 | ECHO ---
HEIGHT: 5 ft 5 in WEIGHT: 139 lb 0 oz DATE OF STUDY: 01/04/[address]: Miguel Villegas MD 2-DIMENSIONAL: YES M.MODE: YES DOPPLER: YES COLOR FLOW: YES TDS: PORTABLE: YES DEFINITY: BUBBLE STUDY: DIAGNOSIS: NEW ONSET ATRIAL FIBRILLATION CARDIAC HISTORY: CATHERIZATION: NO SURGERY: NO PROSTHETIC VALVE: NO PACEMAKER: NO MEASUREMENTS (cm) DIASTOLIC (NORMALS) SYSTOLIC (NORMALS) IVSd 1.0 (0.6-1.2) LA Diam 3.1 (1.9-4.0) LVEF 60-65% LVIDd 3.6 (3.5-5.7) LVIDs 2.7 (2.0-3.5) %FS 26% LVPWd 1.0 (0.6-1.2) Ao Diam 2.6 (2.0-3.7) 2 DIMENSIONAL ASSESSMENT: RIGHT ATRIUM: NORMAL LEFT ATRIUM: NORMAL RIGHT VENTRICLE: NORMAL LEFT VENTRICLE: NORMAL TRICUSPID VALVE: MILD TRICUSPID REGURGITATION MITRAL VALVE: NORMAL PULMONIC VALVE: NORMAL AORTIC VALVE: NORMAL PERICARDIAL EFFUSION: NONE AORTIC ROOT: NORMAL LEFT VENTRICULAR WALL MOTION: NORMAL DOPPLER/COLOR FLOW: NORMAL COMMENTS: 1. NORMAL LEFT VENTRICULAR SYSTOLIC FUNCTION, EJECTION FRACTION 60-65%, NORMAL WALL MOTION 2. NORMAL DIASTOLIC FUNCTION 3. MILD PULMONARY HYPERTENSION (RIGHT VENTRICULAR SYSTOLIC PRESSURE 55-40 mmHg) TECHNOLOGIST: SHELL CARSON
[2024-01-04] MEDS ORDERED: Phenylephrine HCl 10 MG/ML 1 ML VIAL ONE ×2 (13:46→14:30)
[2024-01-04] MEDS: ALBUMIN HUM 5% 250 ML IV ONE (13:54)
[2024-01-04] MEDS: CEFAZOLIN SODIUM 1 GM/VIAL ONE (13:55)
[2024-01-04] MEDS ORDERED: EPHEDRINE SULF 50 MG/ML VIAL ONE (13:58)
--- NOTE | 2024-01-04 15:08 | P.OP ---
Preoperative diagnosis: Small Bowel Obstruction Postoperative diagnosis: Small Bowel Obstruction Primary procedure: Exploratory Laparotomy with Small Bowel Resection Anesthesia: GETA + CIERRA Estimated blood loss: <10cc Specimen: Small Bowel with impacted stool Findings: Impacted Stool ball in small bowel Complications: None Transferred to: Recovery Room Condition: Good
[2024-01-04] MEDS ORDERED: ALBUTEROL 2.5 MG/3 ML NEB SOL NEB PRN (15:13)
[2024-01-04] MEDS ORDERED: NEOSTIGMINE 1 MG/ML -10 ML VIAL ONE (15:33)
[2024-01-04] MEDS ORDERED: GLYCOPYRROLATE 0.2 MG/ML SYR ONE (15:33)
[2024-01-04] MEDS: MORPHINE 4 MG/ML SYR ONE (16:15)
[2024-01-04] MEDS: ONDANSETRON 4 MG/2 ML VIAL ONE (16:23)
[2024-01-04] MEDS: MORPHINE 4 MG/ML SYR IV PRN (17:16)
[2024-01-04] MEDS ORDERED: AMIODARONE HCL 900 MG in Dextrose 5%-Water 482 ML IV SCH (21:00)
--- NOTE | 2024-01-05 03:47 | OP ---
Date of Procedure: 01/04/2024 Surgeon: Tyler Ferrell MD, Preoperative Diagnosis: Small bowel obstruction. Postoperative Diagnosis: Small bowel obstruction. Procedure Performed: Exploratory laparotomy with small-bowel resection. Anesthesia: General endotracheal plus TAP block. Estimated Blood Loss: Less than 10 cc. Specimen: Small bowel with impacted stool. Findings: Impacted stool ball within the small bowel near the ileocecal valve. Complications: None. Disposition: The patient transferred to recovery room in good condition. Procedure In Detail: After informed consent was obtained, the patient was brought to the operating r oom, prepped in the usual sterile fashion. After adequate anesthesia was achieved, I made a midline laparotomy incision down to subcutaneous tissues with a 10 blade using electrocautery, dissected down to the fascia, the midline. Linea alba was opened with electrocautery to expose the peritoneum. Th e peritoneum was grasped and entered sharply using Metzenbaum scissors without evidence of complicati on. The abdomen was opened for a mini-laparotomy incision. At this point, the bowel was eviscerated and run from the ligament of Treitz to ileocecal valve. Near the ileocecal valve, I discovered a si gnificant concretion of stool right at the ileocecal valve, which could not be delivered into the col on causing the level of the obstruction, this was the obvious source at this point. No significant a dhesions were appreciated at this point. I inspected the intraperitoneal portions of the colon, whic h were found to be without issue as well. At this point, I palpated the gallbladder which did not garzon ve any obvious connections or consistent findings for cholecystitis or other findings. At this point , I have milked back the stool concretion proximally to the mid small bowel. Ultimately, 1 area of a bnormal appearing small bowel, possible diverticulum were appreciated and I created enterotomies on t he proximal distal mesentery using electrocautery. I fired the JAY 65 stapler with a blue load acros s the proximal and distal aspects of the small bowel at this point, and used the LigaSure device to l igate the small bowel. I sent this off to the back table for examination later as there was a stool ball that I had milked back to this portion. At this point, I brought the bowel together in a side-t o-side peristaltic fashion. I placed a silk suture of 3-0 nylon on the proximal distal aspect, creat ed a sterile field with sterile towels. Ultimately made 2 enterotomies in the proximal distal small bowel, dilated these areas, inspected the mucosa, which was found to be intact at this point. Milky colored fluid consistent with previous contrast was appreciated at this area. Then placed the JAY 65 through the small bowel at this point and fired it in a [id number] anastomotic fashion. At this p oint, the common channel was inspected and did not require any hemostatic maneuvers, found to be inta ct at this point without leakage. At this point, I closed the common channel using a 3-0 PDS suture in a canal type running suture with good apposition of the tissues. I then closed it with a second l zach of Ottobert 3-0 silk sutures without evidence of complication. At this point, the common defect of the mesentery was closed using a 3-0 Vicryl suture without evidence of complication. The area was irrigated once again at this point, and I milked small bowel contents through this anastomosis quite easily without any evidence of leakage and it went through with good patency without any resistance. At this point, the bowel was returned to the normal anatomic position. I irrigated the abdomen commercial helicopter pilot iously at this point, brought the omentum down over the anterior surface at this point to protect the area after the abdomen was copiously irrigated and suctioned out completely dry. At this point, the midline laparotomy fish was placed and the abdominal cavity was closed using fascial sutures of #1 l ooped PDS suture in a running fashion without incident or complication. At this point, the fish was removed just prior to this and the skin was irrigated and closed with interrupted deng. A sterile dressing placed over the top. The patient tolerated the procedure without evidence of complication and transferred to PACU in good condition. All counts were correct at the end of the case. TK/MODL Voice ID: [id number] Report ID: [id number]
[2024-01-05 06:39] LABS: Absolute Lymphocytes (CBC) 0.8 K/uL (0.7-4.9); Absolute Monocytes 0.8 K/uL (0.1-1.3); Absolute Neutrophil 7.9 K/uL (1.8-8.0); Basophils % 0.1 % (0-1.3); Eosinophils % 0.2 % (0-4.4); Hematocrit 32.8 % (36.0-45.0); Hemoglobin 11.3 g/dL (12.0-15.0); Lymphocytes % 8.3 % (15.3-44.8); MCHC 34.4 g/dL (32.0-36.0); MCV 90.1 fL (80-100); MPV 8.3 fL (7.6-11.3); Monocytes % 7.9 % (3.3-12.3); Neutrophils % 83.5 % (41.7-73.7); Platelets 272 thou/uL (152-406); RBC Red Blood Cell Count 3.64 M/uL (3.86-4.86)
[2024-01-05 06:55] LABS: Anion Gap 6.5 mEq/L (5.0-15.0); Magnesium 1.6 mg/dL (1.6-2.4); Phosphorus 2.4 mg/dL (2.5-4.9); Potassium 3.5 mEq/L (3.5-5.1)
[2024-01-05] MEDS: CEFAZOLIN 1 GM in NA CHLORIDE 0.9% 50 ML IVPB SCH (09:37)
[2024-01-05] MEDS: ENOXAPARIN 60 MG/0.6 ML SQ SCH (09:37)
[2024-01-05] MEDS: MAGNESIUM SULFATE 1 gm IVPB 1 GM/100 ML BAG IV ONE (09:38)
[2024-01-05] MEDS: POTASSIUM PHOS IN 0.9 % NACL 15 MMOL/250 ML BAG IV ONE (11:19)
[2024-01-05] MEDS: D5 0.9 NS 1,000 ML IV SCH (12:00)
--- NOTE | 2024-01-05 12:23 | P.PN ---
Subjective Date of Service: 01/05/24 Chief Complaint: abdominal pain Patient is s/p bowel surgery, she is in sinus rhythm. Review of Systems 10-point ROS is otherwise unremarkable Physical Examination - Vital Signs Temperature: 98.1 F Blood Pressure: 122/58 Pulse: 87 Respirations: 16 Pulse Ox (%): 92 - Physical Exam General: Alert, In no apparent distress HEENT: Atraumatic, PERRLA, EOMI Neck: Supple, JVD not distended Respiratory: Clear to auscultation bilaterally, Normal air movement Cardiovascular: Regular rate/rhythm, Normal S1 S2 Gastrointestinal: Normal bowel sounds, No tenderness Musculoskeletal: No tenderness Integumentary: No rashes Neurological: Normal speech, Normal tone, Normal affect Lymphatics: No axilla or inguinal lymphadenopathy - Studies Medications List Reviewed: Yes Assessment And Plan - Current Problems (Diagnosis) (1) Atrial fibrillation Current Visit: Yes Status: Acute Plan: most likely new onset, patient converted into sinus rhythm Continue Amiodaorne drip per protocol until patient able to take po intake. Continue Metoprolol 25 mg po BID anticoagulation is on hold now until cleared by surgery. (2) Small bowel obstruction Current Visit: Yes Status: Acute Plan: per surgical team. (3) HTN (hypertension) Current Visit: Yes Status: Acute Plan: on metoprolol, continue to monitor. get Echo Physician Review: Patient Assessed, Agree with Above Assessment and Plan
--- NOTE | 2024-01-05 15:11 | P.PN ---
Subjective Date of Service: 01/05/24 Chief Complaint: abdominal pain Patient is complaining of intermittent abdominal pain. NG tube is in place and draining bile colored fluid. Patient remain n.p.o. She spontaneously converted to sinus rhythm on amiodarone drip. She has been afebrile Physical Examination - Vital Signs Temperature: 98.1 F Blood Pressure: 122/58 Pulse: 87 Respirations: 16 Pulse Ox (%): 92 - Studies Medications List Reviewed: Yes Assessment And Plan - Plan Physical Exam: GEN: Alert, oriented, NAD HEENT: NG tube in place CV: Regular rhythm, normal rate, no edema Pulm: Nonlabored respirations on room air, clear bilaterally ABD: Soft, nondistended. Abdominal binder in place. Neuro: Normal speech, normal affect, no focal motor deficit. vitals reviewed Problem List: Mechanical small bowel obstruction Incidental 4cm jejunal diverticula Atrial-fibrillation with RVR, new onset Hypertension Mechanical small bowel obstruction Incidental 4cm jejunal diverticula Reported RUQ / upper abdominal pain with nausea/vomiting ~1-2 days. colonoscopy ~1 year ago was unremarkable per patient CT abdomen (12/29): Moderate SBO. 4 cm jejunal diverticula no change in distention / SBO on repeat daily KUBS Dr. Ferrell consulted, small bowel series (01/02) showed SBO with no significant improvement. Contrast stopped at distal small bowel. repeat KUB (01/03): mod-severe SBO. majority of contrast within small bowel loops with a small volume of contrast in colon NGT to LIWS placed (01/02) Status post laparotomy 01/03, impacted stool in the small bowel noted, small bowel resection with end-to-end anastomosis done. Patient remained on NG tube NPO, IVF afebrile, Leukocytosis resolved (12/31) Diet resumption per surgery Dr. Ferrell. Atrial-fibrillation with RVR, new onset Pt reported palpitations 01/01 and felt her heart was racing EKG: afib. HR in 120-140s at the time new onset, denies any history No response to Lopressor initially Patient seen by cardiology and started on IV amiodarone. N.p.o. status. She converted to sinus rhythm on amiodarone drip. Patient started on full dose Lovenox anticoagulation. monitor on telemetry echo (6/10): Unremarkable, shows normal EF and mild pulmonary hypertension. cardiology is following. Impaired mobility Continue PT VTE: Lovenox Code: Full
[2024-01-06 07:24] LABS: Absolute Eosinophils 0.1 K/uL (0-0.5); Absolute Lymphocytes (CBC) 0.7 K/uL (0.7-4.9); Absolute Monocytes 0.8 K/uL (0.1-1.3); Absolute Neutrophil 8.4 K/uL (1.8-8.0); Basophils % 0.1 % (0-1.3); Eosinophils % 0.6 % (0-4.4); Hematocrit 32.2 % (36.0-45.0); Hemoglobin 10.9 g/dL (12.0-15.0); Lymphocytes % 6.8 % (15.3-44.8); MCH 30.4 pg (27.0-35.0); MCHC 33.7 g/dL (32.0-36.0); MCV 90.2 fL (80-100); MPV 8.5 fL (7.6-11.3); Monocytes % 8.3 % (3.3-12.3); Neutrophils % 84.2 % (41.7-73.7); Platelets 235 thou/uL (152-406); RBC Red Blood Cell Count 3.57 M/uL (3.86-4.86); Red Cell Distribution Width 13.2 % (12.1-15.2)
[2024-01-06 07:50] LABS: Anion Gap 6.2 mEq/L (5.0-15.0); Magnesium 1.9 mg/dL (1.6-2.4); Phosphorus 1.6 mg/dL (2.5-4.9); Potassium 3.2 mEq/L (3.5-5.1)
[2024-01-06] MEDS ORDERED: APIXABAN 5 MG TABLET PO SCH (09:00)
--- NOTE | 2024-01-06 10:13 | P.PN ---
Subjective Date of Service: 01/06/24 Chief Complaint: abdominal pain Subjective: No new changes, No C/O voiced, Tolerating diet, Ambulating, Improving Patient is s/p bowel surgery, she is in sinus rhythm. Review of Systems 10-point ROS is otherwise unremarkable Physical Examination - Vital Signs Temperature: 97.1 F Blood Pressure: 160/72 Pulse: 95 Respirations: 17 Pulse Ox (%): 96 - Physical Exam General: Alert, In no apparent distress HEENT: Atraumatic, PERRLA, EOMI Neck: Supple, JVD not distended Respiratory: Clear to auscultation bilaterally, Normal air movement Cardiovascular: Regular rate/rhythm, Normal S1 S2 Gastrointestinal: Normal bowel sounds, No tenderness Musculoskeletal: No tenderness Integumentary: No rashes Neurological: Normal speech, Normal tone, Normal affect Lymphatics: No axilla or inguinal lymphadenopathy - Studies Medications List Reviewed: Yes Assessment And Plan - Current Problems (Diagnosis) (1) Atrial fibrillation Current Visit: Yes Status: Acute Plan: most likely new onset, patient converted into sinus rhythm Continue Amiodaorne drip per protocol until patient able to take po intake. Start Metoprolol 5 mg IV Q6 hours please check LFTs in am anticoagulation is on hold now until cleared by surgery. (2) Small bowel obstruction Current Visit: Yes Status: Acute Plan: per surgical team. (3) HTN (hypertension) Current Visit: Yes Status: Acute Plan: on metoprolol, continue to monitor. Physician Review: Patient Assessed, Agree with Above Assessment and Plan
[2024-01-06] MEDS: ENOXAPARIN 60 MG/0.6 ML SQ SCH (10:23)
--- NOTE | 2024-01-06 11:02 | P.PN ---
Subjective Date of Service: 01/06/24 Chief Complaint: abdominal pain Patient reports abdominal pain only with movement. NG tube is in place and draining bile colored fluid. She remain in sinus rhythm on amiodarone drip. She has been afebrile. She was out of bed today with physical therapy Physical Examination - Vital Signs Temperature: 97.1 F Blood Pressure: 160/72 Pulse: 95 Respirations: 17 Pulse Ox (%): 96 - Studies Medications List Reviewed: Yes Assessment And Plan - Plan Physical Exam: GEN: Alert, oriented, NAD HEENT: NG tube in place CV: Regular rhythm, normal rate, no edema Pulm: Nonlabored respirations on room air, clear bilaterally ABD: Soft, nondistended. Abdominal binder in place. Neuro: Normal speech, normal affect, no focal motor deficit. vitals reviewed Problem List: Mechanical small bowel obstruction Incidental 4cm jejunal diverticula Atrial-fibrillation with RVR, new onset Hypertension Mechanical small bowel obstruction Incidental 4cm jejunal diverticula Reported RUQ / upper abdominal pain with nausea/vomiting ~1-2 days. colonoscopy ~1 year ago was unremarkable per patient CT abdomen (12/29): Moderate SBO. 4 cm jejunal diverticula no change in distention / SBO on repeat daily KUBS Dr. Ferrell consulted, small bowel series (01/02) showed SBO with no significant improvement. Contrast stopped at distal small bowel. repeat KUB (01/03): mod-severe SBO. majority of contrast within small bowel loops with a small volume of contrast in colon NGT to LIWS placed (01/02) Status post laparotomy 01/03, impacted stool in the small bowel noted, small la[place] wel resection with end-to-end anastomosis done. NG tube to suction surgery Dr. Ferrell NPO, IVF Patient reports prolonged n.p.o. Discussing with Dr. Miranda safe to start TPN/PPN afebrile, Leukocytosis resolved (12/31) Diet resumption per surgery Dr. Ferrell. Atrial-fibrillation with RVR, new onset Pt reported palpitations 01/01 and felt her heart was racing EKG: afib. HR in 120-140s at the time new onset, denies any history No response to Lopressor initially Patient seen by cardiology and started on IV amiodarone. She converted to sinus rhythm on amiodarone drip. Patient started on full dose Lovenox anticoagulation. Continue IV amiodarone drip until diet is resumed IV metoprolol per cardiology monitor on telemetry echo (01/03): Unremarkable, shows normal EF and mild pulmonary hypertension. cardiology is following. Impaired mobility Continue PT Disposition pending response to PT and medical treatment. VTE: Lovenox Code: Full
[2024-01-06] MEDS: KCL 20 MEQ/100 mL IVPB 20 MEQ/100 ML BAG IV SCH ×2 (13:00→20:40)
--- NOTE | 2024-01-06 15:21 | RAD REPORT ---
EXAM DESCRIPTION: [facility] Single View01/06/2024 1:03 pm CLINICAL HISTORY: PICC placement COMPARISON: Abdomen 1 View (KUB) dated 01/03/2024; Abdomen 1 View (KUB) dated 01/03/2024; Abdomen 1 View (KUB) dated 01/02/2024 TECHNIQUE: Portable AP view of the chest. FINDINGS: Left arm PICC in place, with catheter tip projected at the superior cavoatrial junction. E nteric tube unchanged in position. Hazy bibasilar opacification more pronounced on the right appears stable . No pneumothorax or effusion. The cardiomediastinal contours are unremarkable. IMPRESSION: Satisfactory positioning of left arm PICC. Stable bibasilar mild opacities as above whi ch may reflect atelectasis or early pneumonia.
[2024-01-06] MEDS: POTASSIUM PHOS IN 0.9 % NACL 15 MMOL/250 ML BAG IV ONE (16:03)
[2024-01-06] MEDS: CEFAZOLIN 1 GM in NA CHLORIDE 0.9% 50 ML IVPB SCH (16:53)
[2024-01-06] MEDS: METOPROLOL TARTRATE 5 MG/5 ML INJ IV SCH (16:53)
[2024-01-07 05:12] LABS: Absolute Eosinophils 0.1 K/uL (0-0.5); Absolute Lymphocytes (CBC) 0.9 K/uL (0.7-4.9); Absolute Monocytes 0.6 K/uL (0.1-1.3); Absolute Neutrophil 6.1 K/uL (1.8-8.0); Basophils % 0.1 % (0-1.3); Eosinophils % 0.9 % (0-4.4); Hematocrit 27.8 % (36.0-45.0); Hemoglobin 9.4 g/dL (12.0-15.0); Lymphocytes % 11.2 % (15.3-44.8); MCH 29.8 pg (27.0-35.0); MCHC 33.7 g/dL (32.0-36.0); MCV 88.5 fL (80-100); MPV 8.4 fL (7.6-11.3); Monocytes % 8.2 % (3.3-12.3); Neutrophils % 79.6 % (41.7-73.7); Platelets 207 thou/uL (152-406); RBC Red Blood Cell Count 3.14 M/uL (3.86-4.86); Red Cell Distribution Width 13.2 % (12.1-15.2)
[2024-01-07 05:32] LABS: Anion Gap 6.3 mEq/L (5.0-15.0); Magnesium 1.7 mg/dL (1.6-2.4); Phosphorus 2.1 mg/dL (2.5-4.9); Potassium 3.3 mEq/L (3.5-5.1)
[2024-01-07] MEDS: MAGNESIUM SULFATE 1 gm IVPB 1 GM/100 ML BAG IV ONE (07:23)
[2024-01-07] MEDS: POTASSIUM PHOS IN 0.9 % NACL 15 MMOL/250 ML BAG IV ONE (09:23)
--- NOTE | 2024-01-07 11:50 | P.PN ---
Subjective Date of Service: 01/07/24 Chief Complaint: abdominal pain Subjective: No new changes, No C/O voiced, Tolerating diet, Ambulating, Improving Patient is s/p bowel surgery, she is in sinus rhythm. Review of Systems 10-point ROS is otherwise unremarkable Physical Examination - Vital Signs Temperature: 97.3 F Blood Pressure: 134/70 Pulse: 83 Respirations: 18 Pulse Ox (%): 96 - Physical Exam General: Alert, In no apparent distress HEENT: Atraumatic, PERRLA, EOMI Neck: Supple, JVD not distended Respiratory: Clear to auscultation bilaterally, Normal air movement Cardiovascular: Regular rate/rhythm, Normal S1 S2 Musculoskeletal: No tenderness Integumentary: No rashes Neurological: Normal speech, Normal tone, Normal affect Lymphatics: No axilla or inguinal lymphadenopathy - Studies Medications List Reviewed: Yes Assessment And Plan - Current Problems (Diagnosis) (1) Atrial fibrillation Current Visit: Yes Status: Acute Plan: most likely new onset, patient converted into sinus rhythm Stop Amiodarone drip for now as she has been on drip for 3 days Continue Metoprolol 5 mg IV Q6 hours until patient is able to take PO anticoagulation is on hold now until cleared by surgery. (2) Small bowel obstruction Current Visit: Yes Status: Acute Plan: per surgical team. (3) HTN (hypertension) Current Visit: Yes Status: Acute Plan: on metoprolol, continue to monitor. Physician Review: Patient Assessed, Agree with Above Assessment and Plan
--- NOTE | 2024-01-07 14:47 | P.PN ---
Subjective Date of Service: 01/07/24 Chief Complaint: abdominal pain Patient reports abdominal pain only with movement. She also reports fatigue. NG tube output over the past 24 hours: 400 ml, bile colored She remain in sinus rhythm on amiodarone drip. Physical Examination - Vital Signs Temperature: 97.3 F Blood Pressure: 134/70 Pulse: 83 Respirations: 18 Pulse Ox (%): 96 - Studies Medications List Reviewed: Yes Assessment And Plan - Plan Physical Exam: GEN: Alert, oriented, NAD HEENT: NG tube in place CV: Regular rhythm, normal rate, no edema Pulm: Nonlabored respirations on room air, clear bilaterally ABD: Soft, nondistended. Abdominal binder in place. Neuro: Normal speech, normal affect, no focal motor deficit. vitals reviewed Problem List: Mechanical small bowel obstruction Incidental 4cm jejunal diverticula Atrial-fibrillation with RVR, new onset Hypertension Mechanical small bowel obstruction Incidental 4cm jejunal diverticula CT abdomen (12/29): Moderate SBO. 4 cm jejunal diverticula no change in distention / SBO on repeat daily KU[facility] Dr. Ferrell consulted, small bowel series (01/02) showed SBO with no significant improvement. Contrast stopped at distal small bowel. repeat KUB (01/03): mod-severe SBO. majority of contrast within small bowel loops with a small volume of contrast in colon NGT to LIWS placed (01/02) Status post laparotomy 01/03, impacted stool in the small bowel noted, small bowel resection with end-to-end anastomosis done. NG tube to suction surgery Dr. Ferrell Currently n.p.o. Patient reports prolonged n.p.o. Start TPN for prolonged n.p.o. status Afebrile, Leukocytosis resolved (12/31) Diet resumption per surgery Dr. Ferrell. Atrial-fibrillation with RVR, new onset Pt reported palpitations 01/01 and felt her heart was racing EKG: afib. HR in 120-140s at the time new onset, denies any history No response to Lopressor initially She converted to sinus rhythm on amiodarone drip. Continue IV amiodarone drip by cardiology Patient started on full dose Lovenox anticoagulation. Continue IV amiodarone drip until diet is resumed IV metoprolol per cardiology monitor on telemetry echo (01/03): Unremarkable, shows normal EF and mild pulmonary hypertension. cardiology is following. Impaired mobility Continue PT Anticipating disposition to skilled rehab. VTE: Lovenox Code: Full
[2024-01-07] MEDS: AA 5%/D20W/ELECTROLYTES-TPN 2,000 ML, Lipids 20% 250 ML with MULTIVITAMINS INJ 10 ML IV SCH (17:00)
[2024-01-07] MEDS: FUROSEMIDE 20 MG/ 2ML VIAL IV SCH (17:00)
[2024-01-08] MEDS ORDERED: SODIUM CHLORIDE 0.9% 10ML INJ IV PRN (05:20)
[2024-01-08] MEDS: PANTOPRAZOLE 40 MG INJ IVP ONE (05:35)
[2024-01-08 06:46] LABS: Absolute Eosinophils 0.1 K/uL (0-0.5); Absolute Lymphocytes (CBC) 0.6 K/uL (0.7-4.9); Absolute Monocytes 0.6 K/uL (0.1-1.3); Absolute Neutrophil 5.5 K/uL (1.8-8.0); Basophils % 0.1 % (0-1.3); Eosinophils % 1.2 % (0-4.4); Hematocrit 27.6 % (36.0-45.0); Hemoglobin 9.3 g/dL (12.0-15.0); Lymphocytes % 8.7 % (15.3-44.8); MCH 29.9 pg (27.0-35.0); MCHC 33.8 g/dL (32.0-36.0); MCV 88.5 fL (80-100); MPV 8.1 fL (7.6-11.3); Monocytes % 9.3 % (3.3-12.3); Neutrophils % 80.7 % (41.7-73.7); Platelets 200 thou/uL (152-406); RBC Red Blood Cell Count 3.12 M/uL (3.86-4.86)
[2024-01-08 07:01] LABS: Magnesium 1.7 mg/dL (1.6-2.4); Phosphorus 2.3 mg/dL (2.5-4.9)
[2024-01-08] MEDS: MAGNESIUM SULFATE 1 gm IVPB 1 GM/100 ML BAG IV ONE (09:16)
[2024-01-08] MEDS: POTASSIUM PHOS IN 0.9 % NACL 15 MMOL/250 ML BAG IV ONE (11:44)
--- NOTE | 2024-01-08 13:01 | P.PN ---
Subjective Date of Service: 01/08/24 Chief Complaint: abdominal pain Patient reports a feeling of indigestion She denies any flatus. No BM. She remain in sinus rhythm. Physical Examination - Vital Signs Temperature: 97.8 F Blood Pressure: 121/62 Pulse: 75 Respirations: 20 Pulse Ox (%): 95 - Studies Medications List Reviewed: Yes Assessment And Plan - Plan Physical Exam: GEN: Alert, oriented, NAD HEENT: NG tube in place CV: Regular rhythm, normal rate, no edema Pulm: Nonlabored respirations on room air, clear bilaterally ABD: Soft, nondistended. Abdominal binder in place. Neuro: Normal speech, normal affect, no focal motor deficit. vitals reviewed Problem List: Mechanical small bowel obstruction Incidental 4cm jejunal diverticula Atrial-fibrillation with RVR, new onset Hypertension Mechanical small bowel obstruction Incidental 4cm jejunal diverticula CT abdomen (12/29): Moderate SBO. 4 cm jejunal diverticula no change in distention / SBO on repeat daily KUBS Dr. Ferrell consulted, small bowel series (01/02) showed SBO with no significant improvement. Contrast stopped at distal small bowel. repeat KUB (01/03): mod-severe SBO. majority of contrast within small bowel loops with a small volume of contrast in colon NGT to LIWS placed (01/02) Status post laparotomy 01/03, impacted stool in the small bowel noted, small bowel resection with end-to-end anastomosis done. NG tube management per Surgery Dr. Ferrell She remain n.p.o. History of prolonged n.p.o. TPN started Afebrile, Leukocytosis resolved (12/31) Diet resumption per surgery Dr. Ferrell. Atrial-fibrillation with RVR, new onset Pt reported palpitations 01/01 and felt her heart was racing EKG: afib. HR in 120-140s at the time new onset, denies any history No response to Lopressor initially She converted to sinus rhythm on amiodarone drip. Amiodarone drip discontinued per cardiology Continue full dose Lovenox anticoagulation and transition to Eliquis once oral feeding is resumed. She is on IV metoprolol per cardiology monitor on telemetry echo (01/03): Unremarkable, shows normal EF and mild pulmonary hypertension. cardiology is following. Impaired mobility Continue PT Patient prefers to go home on discharge. VTE: Lovenox Code: Full
--- NOTE | 2024-01-08 14:21 | P.PN ---
Subjective Date of Service: 01/08/24 Chief Complaint: abdominal pain Patient feels significantly better today but was stating she had some increased weakness after sitting in the chair and felt she was getting more weak and fatigued although she has more rumbling in her abdomen consistent with more gas she is now hungry and requesting liquids at this point she has not had bowel function at this point. She is pain-free while in bed and only has pain with coughing or abdominal movement Physical Examination - Vital Signs Temperature: 97.8 F Blood Pressure: 121/62 Pulse: 75 Respirations: 20 Pulse Ox (%): 95 - Physical Exam General: Alert, In no apparent distress, Oriented x3, Cooperative Respiratory: Clear to auscultation bilaterally Cardiovascular: Regular rate/rhythm Gastrointestinal: Other (Soft mild appropriate tenderness to palpation, mild distention, positive bowel sounds, no rebound no guarding no peritoneal signs. Tonia in place without evidence of infection no hernias.) - Studies Medications List Reviewed: Yes Assessment And Plan - Current Problems (Diagnosis) (1) Small bowel obstruction Current Visit: Yes Status: Acute Plan: Patient is a 78-year-old woman who presents with a small bowel obstruction S/P exploratory laparotomy with small bowel resection on 01/04/24 -Continue pain management regimen with IV pain medication. -Continue incentive spirometry every 15 minutes. -Continue A-fib management per x ray service engineer recommendations. -Postop ileus: Continue serial exams, ambulate with assist, will place NG tube clamp trial as output has diminished to significant small amounts less than 50 cc/day. If tolerates clamp trial we will DC NG tube and start sips of clear liquids today. -Okay to chew gum if NG tube removed today. -Ambulate only with assist and with physical therapy. -Continue TPN until patient meeting nutritional goals. -Continue electrolyte replacement protocol. -Dressing changes daily to abdominal incision. -Continue medical management per primary team. Physician Review: Patient Assessed, Agree with Above Assessment and Plan
--- NOTE | 2024-01-08 17:52 | RAD REPORT ---
EXAM DESCRIPTION: CT - Abdomen Pelvis Wo Contrast - 01/08/2024 5:41 pm CLINICAL HISTORY: Abdominal pain. abdominal discomfort , fever COMPARISON: Abdomen Pelvis W Contrast dated 12/30/2023; Abdomen 1 View (KUB) dated 01/04/2024 TECHNIQUE: CT imaging of the abdomen and pelvis was performed without contrast. Solid organ, bowel a nd vascular assessment is limited due to lack of IV and oral contrast. All CT scans are performed using dose optimization technique as appropriate and may include automated exposure control or mA/KV adjustment according to patient size. FINDINGS: Small left and moderate right pleural effusion.Mild atelectasis in both lung bases, greate r on the right. Small hiatal hernia with enteric tube noted. The liver, spleen, pancreas, adrenal glands and kidneys are within normal limits for a limited non-co ntrast examination. Contrast is present in the colon. Multiple dilated small bowel loops are present throughout the abdom en which could be related to adynamic ileus. Small amount of free fluid is seen in the pelvis. The osseous structures are within normal limits. IMPRESSION: Opacity in the right lung base may represent atelectasis or infiltrate. Small bilateral pleural effusions, larger on the right. Mild to moderate small bowel distention with fluid would favor adynamic ileus. Contrast from recent G I barium study is in the colon. A limited non-contrast examination was performed as detailed.
--- NOTE | 2024-01-08 19:53 | PN ---
Date of Progress Note: 01/08/2024 Subjective: Seen by bedside. No chest pain, shortness of breath, orthopnea, or cough. No nausea, v omiting, or diarrhea. Still not able to eat by mouth. Review of Systems: As outlined above. Objective: Vital Signs: Reviewed. Head and Neck: Pupils are equal, reactive to light. Intact eye movements. No JVD. No cervical lym phadenopathy. Neck is supple. Thyroid is not enlarged. Lungs: Clear to auscultation bilaterally. No rhonchi, wheezing, or crackles. No accessory muscle u se. Heart: Regular rate and rhythm. No extra sounds. Abdomen: Soft, nontender. Bowel sounds positive. No organomegaly. No masses or hernia. No rigidi ty or rebound. Extremities: No edema, clubbing, or cyanosis. Intact pulses. Skin: No rash. No nodule. Neurologic: Alert, awake, oriented x3. No acute focal deficits appreciated. Investigations: BUN 8, creatinine 0.35, and potassium is 3. Hemoglobin is 9.3. Assessment And Recommendations: 1.Atrial fibrillation, seems to be controlled now, in sinus rhythm. Continue metoprolol as needed. If she goes back into atrial fibrillation with rapid ventricular response, she can have the amiodaro ne back at 0.5 mg/min, while she cannot take medication by mouth. Once she is able to take medicatio ns by mouth, start amiodarone 200 mg twice a day and anticoagulation will be started after she is abl e to take medications by mouth. 2.Small bowel obstruction, being managed surgically. 3.Hypertension. Blood pressure is controlled. Continue current management. /LUKASZ Voice ID: [id number] Report ID: [id number]
[2024-01-08] MEDS: METRONIDAZOLE 500mg IVPB 500 MG/100 ML BAG IV SCH (22:41)
[2024-01-08] MEDS: CIPROFLOXACIN 400mg IV 400 MG/200 ML BAG IV SCH (22:43)
[2024-01-09 06:21] LABS: Absolute Eosinophils 0.1 K/uL (0-0.5); Absolute Lymphocytes (CBC) 0.7 K/uL (0.7-4.9); Absolute Monocytes 0.8 K/uL (0.1-1.3); Absolute Neutrophil 6.3 K/uL (1.8-8.0); Basophils % 0.4 % (0-1.3); Eosinophils % 0.7 % (0-4.4); Hematocrit 28.4 % (36.0-45.0); Hemoglobin 9.8 g/dL (12.0-15.0); Lymphocytes % 9.3 % (15.3-44.8); MCH 30.5 pg (27.0-35.0); MCHC 34.7 g/dL (32.0-36.0); MPV 8.8 fL (7.6-11.3); Monocytes % 10.1 % (3.3-12.3); Neutrophils % 79.5 % (41.7-73.7); Nucleated Red Blood Cells % 0.2 % (0-0); Platelets 149 thou/uL (152-406); RBC Red Blood Cell Count 3.23 M/uL (3.86-4.86); Red Cell Distribution Width 12.8 % (12.1-15.2)
[2024-01-09 06:40] LABS: Anion Gap 4.4 mEq/L (5.0-15.0); Magnesium 1.8 mg/dL (1.6-2.4)
[2024-01-09 07:20] LABS: Potassium 2.4 mEq/L (3.5-5.1)
[2024-01-09] MEDS: KCL 20 MEQ/100 mL IVPB 20 MEQ/100 ML BAG IV SCH (08:13)
--- NOTE | 2024-01-09 15:29 | P.PN ---
Subjective Date of Service: 01/09/24 Chief Complaint: abdominal pain Patient had a bowel movement today, she denies any abdominal pain. She states she feels better. Patient seen ambulating in the hallway during PT. She remain in sinus rhythm. Physical Examination - Vital Signs Temperature: 97.7 F Blood Pressure: 119/70 Pulse: 92 Respirations: 20 Pulse Ox (%): 94 - Studies Medications List Reviewed: Yes Assessment And Plan - Plan Physical Exam: GEN: Alert, oriented, NAD HEENT: NG tube in place CV: Regular rhythm, normal rate, no edema Pulm: Nonlabored respirations on room air, clear bilaterally ABD: Soft, nondistended. Abdominal binder in place. Neuro: Normal speech, normal affect, no focal motor deficit. vitals reviewed Problem List: Mechanical small bowel obstruction Incidental 4cm jejunal diverticula Atrial-fibrillation with RVR, new onset Hypertension Mechanical small bowel obstruction Incidental 4cm jejunal diverticula CT abdomen (12/29): Moderate SBO. 4 cm jejunal diverticula no change in distention / SBO on repeat daily KU[facility] Dr. Ferrell consulted, small bowel series (01/02) showed SBO with no significant improvement. Contrast stopped at distal small bowel. repeat KUB (01/03): mod-severe SBO. majority of contrast within small bowel loops with a small volume of contrast in colon NGT to LIWS placed (01/02) Status post laparotomy 01/03, impacted stool in the small bowel noted, small bowel resection with end-to-end anastomosis done. Patient had a bowel movement today. NG tube discontinued surgery Dr. Ferrell. Patient started on clear liquid diet Continue TPN for now per Surgery Atrial-fibrillation with RVR, new onset Pt reported palpitations 01/01 and felt her heart was racing EKG: afib. HR in 120-140s at the time new onset, denies any history No response to Lopressor initially She converted to sinus rhythm on amiodarone drip. Amiodarone drip discontinued per cardiology. Oral amiodarone 200 mg twice daily per cardiology. Continue full dose Lovenox anticoagulation and transition to Eliquis if patient tolerates oral feeding. IV metoprolol as needed. monitor on telemetry echo (01/03): Unremarkable, shows normal EF and mild pulmonary hypertension. cardiology is following. Impaired mobility Continue PT Patient prefers to go home on discharge. Anticipating home with home health for PT and [facility]. VTE: Lovenox Code: Full
[2024-01-09] MEDS: POTASSIUM PHOS IN 0.9 % NACL 15 MMOL/250 ML BAG IV ONE (16:03)
[2024-01-09] MEDS: AA 5%/D20W/ELECTROLYTES-TPN 2,000 ML IV SCH (17:21)
[2024-01-09] MEDS: AMIODARONE HCL 200 MG TAB PO SCH (20:49)
[2024-01-09] MEDS: CEFEPIME 1 GM in NA CHLORIDE 0.9% 100 ML IV SCH (20:49)
[2024-01-10 03:35] VITALS: O2SAT 95
[2024-01-10 06:22] LABS: Absolute Eosinophils 0.1 K/uL (0-0.5); Absolute Lymphocytes (CBC) 0.9 K/uL (0.7-4.9); Absolute Monocytes 0.7 K/uL (0.1-1.3); Absolute Neutrophil 6.3 K/uL (1.8-8.0); Basophils % 0.2 % (0-1.3); Eosinophils % 1.5 % (0-4.4); Hematocrit 25.8 % (36.0-45.0); Hemoglobin 8.9 g/dL (12.0-15.0); Lymphocytes % 10.9 % (15.3-44.8); MCH 30.2 pg (27.0-35.0); MCHC 34.5 g/dL (32.0-36.0); MCV 87.7 fL (80-100); MPV 8.8 fL (7.6-11.3); Monocytes % 9.1 % (3.3-12.3); Neutrophils % 78.3 % (41.7-73.7); Platelets 171 thou/uL (152-406); RBC Red Blood Cell Count 2.94 M/uL (3.86-4.86); Red Cell Distribution Width 13.3 % (12.1-15.2)
[2024-01-10 06:37] LABS: Phosphorus 2.7 mg/dL (2.5-4.9)
[2024-01-10] MEDS: POTASSIUM CL SA 10 MEQ TAB PO ONE ×2 (09:02→17:16)
[2024-01-10] MEDS: POTASSIUM CL 40 MEQ in NA CHLORIDE 0.9% 500 ML IV SCH (09:30)
--- NOTE | 2024-01-10 12:12 | P.PN ---
Subjective Date of Service: 01/10/24 Chief Complaint: abdominal pain Patient states she is doing much better today. She was seen sitting in a chair. She has been tolerating clear liquid diet and denies any abdominal pain. She remain in sinus rhythm. Physical Examination - Vital Signs Temperature: 97.7 F Blood Pressure: 142/68 Pulse: 81 Respirations: 20 Pulse Ox (%): 93 - Studies Medications List Reviewed: Yes Assessment And Plan - Plan Physical Exam: GEN: Alert, oriented, NAD CV: Regular rhythm, normal rate, no edema Pulm: Nonlabored respirations on room air, clear bilaterally ABD: Soft, nondistended. Abdominal binder in place. Neuro: Normal speech, normal affect, no focal motor deficit. vitals reviewed Problem List: Mechanical small bowel obstruction Incidental 4cm jejunal diverticula Atrial-fibrillation with RVR, new onset Hypertension Mechanical small bowel obstruction Incidental 4cm jejunal diverticula CT abdomen (12/29): Moderate SBO. 4 cm jejunal diverticula no change in distention / SBO on repeat daily KUBS Dr. Ferrell consulted, small bowel series (01/02) showed SBO with no significant improvement. Contrast stopped at distal small bowel. repeat KUB (01/03): mod-severe SBO. majority of contrast within small bowel loops with a small volume of contrast in colon NGT to LIWS placed (01/02) Status post laparotomy 01/03, impacted stool in the small bowel noted, small bowel resection with end-to-end anastomosis done. Patient had a bowel movement 01/[address] tube [address] surgery Dr. Ferrell. She is tolerating clear liquid diet. Diet advanced to full liquid diet Dr. Ferrell. Wean off TPN. Atrial-fibrillation with RVR, new onset Pt reported palpitations 01/01 and felt her heart was racing EKG: afib. HR in 120-140s at the time new onset, denies any history No response to Lopressor initially She converted to sinus rhythm on amiodarone drip. Amiodarone drip discontinued per cardiology. Oral amiodarone 200 mg twice daily per cardiology. Transition full dose Lovenox to Eliquis. IV metoprolol as needed. monitor on telemetry echo (01/03): Unremarkable, shows normal EF and mild pulmonary hypertension. cardiology is following. Impaired mobility Patient functional performance status has improved Patient prefers to go home on discharge. Anticipating home with home health for PT and [facility]. VTE: Lovenox Code: Full
--- NOTE | 2024-01-10 16:08 | PN ---
Date of Progress Note: 01/10/2024 Subjective: Seen by bedside. Doing clinically well. She started eating and was started on amiodaro ne by mouth and tolerating it very well. She is still in sinus rhythm. Review of Systems: No chest pain, shortness of breath, orthopnea, cough. No nausea or diarrhea. No dysuria, polyuria, or urinary urgency. All other systems were reviewed, they were negative. Physical Examination: Vital signs: Reviewed. Head and Neck: Pupils are equal, reactive to light. Intact eye movements. No JVD. No cervical lym phadenopathy. Neck: Supple. Thyroid is not enlarged. Lungs: Clear to auscultation bilaterally. No rhonchi, rales, or crackles. No accessory muscle use. Heart: Regular rate and rhythm. No extra sounds. Abdomen: Soft, nontender. Bowel sounds positive. No organomegaly. No masses or hernia. No rigidi ty or rebound. Extremities: No clubbing, cyanosis. Intact pulses. Skin: No rash. Neurologic: Alert, awake, oriented x3. No acute focal deficits appreciated. Investigations: Labs were reviewed. Assessment/recommendation: 1.Atrial fibrillation with rapid ventricular response, converted to sinus rhythm. Continue amiodaro ne by mouth and apixaban. She is doing well with that. 2.Hypertension. Blood pressure is controlled. 3.Congestive heart failure, responding well to diuretics. Carefully monitor BUN, creatinine, electrolytes. 4.Hyperkalemia. Replace potassium. SR/MODL Voice ID: [id number] Report ID: [id number]
[2024-01-10] MEDS: APIXABAN 5 MG TABLET PO SCH (21:44)
[2024-01-11 05:57] LABS: Absolute Eosinophils 0.2 K/uL (0-0.5); Absolute Lymphocytes (CBC) 0.9 K/uL (0.7-4.9); Absolute Monocytes 0.8 K/uL (0.1-1.3); Absolute Neutrophil 5.9 K/uL (1.8-8.0); Basophils % 0.3 % (0-1.3); Hematocrit 27.5 % (36.0-45.0); Hemoglobin 9.1 g/dL (12.0-15.0); Lymphocytes % 12.1 % (15.3-44.8); MCH 29.3 pg (27.0-35.0); MCHC 33.1 g/dL (32.0-36.0); MCV 88.5 fL (80-100); MPV 8.4 fL (7.6-11.3); Monocytes % 10.3 % (3.3-12.3); Neutrophils % 75.3 % (41.7-73.7); Platelets 204 thou/uL (152-406); RBC Red Blood Cell Count 3.11 M/uL (3.86-4.86); Red Cell Distribution Width 13.1 % (12.1-15.2)
[2024-01-11 06:11] LABS: Anion Gap 4.7 mEq/L (5.0-15.0); Magnesium 2.1 mg/dL (1.6-2.4); Phosphorus 2.9 mg/dL (2.5-4.9); Potassium 3.7 mEq/L (3.5-5.1)
[2024-01-11 07:13] VITALS: BMI 22.6
[2024-01-11] MEDS: POTASSIUM 25 MEQ EFFERV TAB PO ONE (08:42)
[2024-01-11 08:56] VITALS: BP 144/65
[2024-01-11 09:53] VITALS: TEMP 97
--- NOTE | 2024-01-11 11:15 | P.PN ---
Subjective Date of Service: 01/11/24 Chief Complaint: abdominal pain Subjective: No new changes, No C/O voiced, Tolerating diet, Ambulating, Improving Patient is s/p bowel surgery, she is in sinus rhythm. Review of Systems 10-point ROS is otherwise unremarkable Physical Examination - Vital Signs Temperature: 97.0 F Blood Pressure: 144/65 Pulse: 71 Respirations: 16 Pulse Ox (%): 95 - Physical Exam General: Alert, In no apparent distress HEENT: Atraumatic, PERRLA, EOMI Neck: Supple, JVD not distended Respiratory: Clear to auscultation bilaterally, Normal air movement Cardiovascular: Regular rate/rhythm, Normal S1 S2 Gastrointestinal: Normal bowel sounds, No tenderness Musculoskeletal: No tenderness Integumentary: No rashes Neurological: Normal speech, Normal tone, Normal affect Lymphatics: No axilla or inguinal lymphadenopathy - Studies Medications List Reviewed: Yes Assessment And Plan - Current Problems (Diagnosis) (1) Atrial fibrillation Current Visit: Yes Status: Acute Plan: most likely new onset, patient converted into sinus rhythm Amiodarone 200 mg po BID eLIQUIS 5 MG PO bid (2) Small bowel obstruction Current Visit: Yes Status: Acute Plan: per surgical team. (3) HTN (hypertension) Current Visit: Yes Status: Acute Plan: on metoprolol, continue to monitor. Physician Review: Patient Assessed, Agree with Above Assessment and Plan
--- NOTE | 2024-01-11 20:22 | P.DS ---
Admission Date: 12/30/23 Discharge Date: 01/11/24 Disposition: [place] HOME/HOME HEALTH CARE Discharge Condition: FAIR Reason for Admission: abdominal pain Brief History of Present Illness: 78-year-old female with past medical history of diet-controlled hypertension, previous hysterectomy, who presented with abdominal pain and right upper quadrant, associated with recurrent bouts of vomiting and nausea. Patient denies any associated diarrhea or constipation. CT of the abdomen and pelvics showed evidence of multiple loops of bowel consistent with mechanical small bowel obstruction. Accidentally noted 4 cm jejunal diverticulum. CBC shows WBC of 16,000 and BMP unremarkable. General surgery was consulted and patient admitted for small bowel obstruction Hospital Course: Patient was admitted to the medical floor and the following medical problems addressed: Diagnosis Mechanical small bowel obstruction Incidental 4cm jejunal diverticula Atrial-fibrillation with RVR, new onset Hypertension Mechanical small bowel obstruction Incidental 4cm jejunal diverticula CT abdomen (12/29): Moderate SBO. 4 cm jejunal diverticula no change in distention / SBO on repeat daily KUBS Dr. Ferrell consulted, small bowel series (01/02) showed SBO with no significant improvement. Contrast stopped at distal small bowel. repeat KUB (01/03): mod-severe SBO. majority of contrast within small bowel loops with a small volume of contrast in colon NGT to LIWS placed (01/02) Status post laparotomy 01/03, impacted stool in the small bowel noted, small bow el resection with end-to-end anastomosis done. Patient was monitored for a few days with NG tube in place Sh had a bowel movement 01/08 NG tube discontinued surgery Dr. Ferrell and then started on clear liquid diet. Diet was advanced to soft consistency which she tolerated She was on TPN for a few days Atrial-fibrillation with RVR, new onset Pt reported palpitations 01/01 and felt her heart was racing EKG: afib. HR in 120-140s at the time new onset, she denied any prior history No response to Lopressor initially She converted to sinus rhythm on amiodarone drip. Amiodarone drip and patient transition to oral amiodarone 200 mg twice daily. She was also placed on full dose Lovenox which was transitioned to Eliquis. Cardiology assisted with management echo (01/03): Unremarkable, shows normal EF and mild pulmonary hypertension. Impaired mobility Patient functional performance status has improved She has been able to ambulate with a walker Anticipating she is discharged home with home health for PT and [facility]. Vital Signs/Physical Exam: Temp Pulse Resp BP Pulse Ox 97.0 F 71 16 144/65 H 95 01/11/24 11:15 01/11/24 11:15 01/11/24 11:15 01/11/24 11:15 01/11/24 11:15 General: Alert, In no apparent distress, Oriented x3 HEENT: Mucous membr. moist/pink Neck: Supple Respiratory: Clear to auscultation bilaterally, Normal air movement Cardiovascular: No edema, Regular rate/rhythm, Normal S1 S2 Gastrointestinal: Normal bowel sounds, Soft and benign, Non-distended Musculoskeletal: No swelling Integumentary: No cyanosis Neurological: Normal strength at 5/5 x4 extr Laboratory Data at Discharge: WBC 7.80 thou/uL (4.3-10.9) 01/11/24 05:40 Hgb 9.1 g/dL (12.0-15.0) L 01/11/24 05:40 Hct 27.5 % (36.0-45.0) L 01/11/24 05:40 Plt Count 204 thou/uL (152-406) 01/11/24 05:40 Sodium 141 mEq/L (136-145) 01/11/24 05:40 Potassium 3.7 mEq/L (3.5-5.1) 01/11/24 05:40 BUN 12 mg/dL (7-18) 01/11/24 05:40 Creatinine 0.41 mg/dL (0.55-1.02) L 01/11/24 05:40 Glucose 108 mg/dL (74-106) H 01/11/24 05:40 Phosphorus 2.9 mg/dL (2.5-4.9) 01/11/24 05:40 Magnesium 2.1 mg/dL (1.6-2.4) 01/11/24 05:40 Total Bilirubin 0.2 mg/dL (0.2-1.0) 01/03/24 05:45 AST < 10 U/L (15-37) L 01/03/24 05:45 ALT 15 U/L (13-56) 01/03/24 05:45 Alkaline Phosphatase 58 U/L (45-117) 01/03/24 05:45 Triglycerides 100 mg/dL (<150) 12/31/23 04:36 Cholesterol 172 mg/dL (<200) 12/31/23 04:36 HDL Cholesterol 72 mg/dL (40-60) H 12/31/23 04:36 Cholesterol/HDL Ratio 2.39 12/31/23 04:36 Lipase 20 U/L (13-75) 12/30/23 18:05 Home Medications: Famotidine [Pepcid AC] 10 mg PO DAILY 12/31/23 Amiodarone HCl [Cordarone*] 200 mg PO BID #60 tab 01/11/24 Apixaban [Eliquis] 5 mg PO BID #60 tab 01/11/24 New Medications: Amiodarone HCl [Cordarone*] 200 mg PO BID #60 tab Apixaban [Eliquis] 5 mg PO BID #60 tab Diet: AHA Activity: Fall precautions Followup: Tyler Ferrell MD [ACTIVE - CAN ADMIT] - 1 Week Akbar Espino DO [Primary Care Provider] - 1-2 Weeks Time spent managing pt's care (in minutes): 38
--- NOTE | 2024-01-17 14:05 | CON ---
Date of Consultation: 12/31/2023 Brief History Of Present Illness: The patient is a 78-year-old woman who presents with past medical history of hypertension, hysterectomy, who presented with abdominal pain in the right upper quadrant and generalized in the abdomen beginning several days prior, but got progressively worse and was asso ciated with recurrent bouts of nausea, vomiting, which had persisted up until the morning. She was a dmitted to the hospital. She denied any change in bowel or bladder habits other than having bowel mo vements the morning prior to her admission as well. She continues to pass minimal amounts of gas and her pain has improved in the ER after getting pain medication. Essentially, she is pain free at thi s point, but remains distended and has low-grade nausea. She has never had similar episodes before i n the past. No sick contacts. No recent travel. Past Medical History: Significant for hypertension, hysterectomy. Allergies: NO KNOWN DRUG ALLERGIES. SHE DENIES SMOKING, ALCOHOL, OR RECREATIONAL DRUG USE. Review of Systems: A 10-point review of systems other than HPI, denies. Physical Examination: General: At the time of my examination, she is awake, alert, and oriented. Psychiatric: Appropriate, conversive. HEENT: She is normocephalic. Sclerae anicteric. Mucous membranes are moist. Oropharynx clear. Neck: Supple without JVD. Chest: Symmetric excursion. Cardiovascular: Regular rate and rhythm. Pulmonary: Clear to auscultation bilaterally. Abdomen: Soft, distended, tympanic, nontender globally. No focal peritonitis. No guarding. No thiago ound. No hernias appreciated. It is tympanic globally, but worse in the epigastric area. Extremities: No clubbing, cyanosis, or edema. Skin: Warm and dry. Laboratory Data: Revealed a white blood cell count of 16.4, hemoglobin is 13.6, hematocrit of 40.2, platelet count was 398. Chemistry showed a sodium of 138, potassium 4.1, chloride is 99, carbon diox bridger 27, BUN 19, creatinine 0.9, glucose 174, calcium 10.1. Total bilirubin 0.7, AST 13, ALT 19, alk phos is 80. Her lipase is 20. She had CT scan of the abdomen and pelvis, officially read as multipl e fluid-filled dilated small bowel loops compatible with moderate mechanical small bowel obstruction. Assessment And Plan: This is a 78-year-old woman who presents with signs and symptoms of a partial s mall bowel obstruction. 1.IV fluid hydration. 2.Antibiotic coverage. 3.Serial abdominal exams. 4.I have explained the risks, benefits, and alternatives of operative versus nonoperative management . Initially tried nonoperative management as the patient has minimal symptoms and continues to pass gas and feels significantly improved since being in the hospital; however, should there be a worsenin g of her symptoms based on her clinical examination as well as imaging followup, I have discussed the surgical options, which included an exploratory laparotomy, possible bowel resection. I have explai mony the risks, benefits, and alternatives of an exploratory laparotomy with possible bowel resection, including but not limited to bleeding, infection, damage to surrounding tissues, need for further op erative procedures, leak of intestines, blood clots, heart attack, strokes, and other unforeseen comp lications in the perioperative period, hernia in the postoperative period. The patient displayed und erstanding of above stated plan, agree proceed as indicated Continue medical management per primary t odilia Hernandez for this consultation. J CARLOS/LUKASZ Voice ID: [id number] Report ID: [id number]
== END 2024-01-11 11:10 | disposition home or self-care (01) | DRG 331 ==
LOC: ER 17:01 → ERHOLD 20:05 → 4TH 12-31 13:59
PROVIDERS: ADMIT Internal Medicine; ATTEND Internal Medicine
PROC: 0DH67UZ Insertion of Feeding Device into Stomach, Via Natural or Artificial Opening (ICD-10-PCS; 2024-01-03)
PROC: 0DB80ZZ Excision of Small Intestine, Open Approach (ICD-10-PCS; principal; 2024-01-04 13:15)
PROC: 02HV33Z Insertion of Infusion Device into Superior Vena Cava, Percutaneous Approach (ICD-10-PCS; 2024-01-06)
PROC: 0T9B70Z Drainage of Bladder with Drainage Device, Via Natural or Artificial Opening (ICD-10-PCS; 2024-01-06)
PROC: 3E0436Z Introduction of Nutritional Substance into Central Vein, Percutaneous Approach (ICD-10-PCS; 2024-01-06)
DX: K56.600 Partial intestinal obstruction, unspecified as to cause (principal); I48.91 Unspecified atrial fibrillation; E87.5 Hyperkalemia; I11.0 Hypertensive heart disease with heart failure; I50.9 Heart failure, unspecified; I27.20 Pulmonary hypertension, unspecified; D72.829 Elevated white blood cell count, unspecified; K57.10 Diverticulosis of small intestine without perforation or abscess without bleeding; R94.31 Abnormal electrocardiogram [ECG] [EKG]; Z90.710 Acquired absence of both cervix and uterus
CPT/HCPCS: 36415; 71045; 74018; 74176; 74177; 74250; 76705; 80048; 80053; 80061; 81001; 82947; 83605; 83690; 83735; 84100; 84132; 84134; 85025; 88305; 88307; 93005; 93306; 94010; 96374; 96375; 97110; 97116; 97161; 97530; 99285; A4216; C9113; J0282; J0360; J0690; J0692; J0744; J1650; J1940; J2001; J2371; J2405; J2704; J2710; J3010; J3475; J3480; J7030; J7040; J7042; J7060; J7120; P9045; Q9967

== ENCOUNTER 2024-08-11 10:17 | Inpatient (IN) | payer OTHER, BC ==
[2024-08-09 10:48] LABS: Absolute Eosinophils 0.1 K/uL (0-0.5); Absolute Lymphocytes (CBC) 1.2 K/uL (0.7-4.9); Absolute Monocytes 0.4 K/uL (0.1-1.3); Absolute Neutrophil 2.4 K/uL (1.8-8.0); Basophils % 0.8 % (0-1.3); Eosinophils % 2.1 % (0-4.4); Hematocrit 38.7 % (36.0-45.0); Hemoglobin 12.6 g/dL (12.0-15.0); Lymphocytes % 28.7 % (15.3-44.8); MCH 29.9 pg (27.0-35.0); MCHC 32.7 g/dL (32.0-36.0); MCV 91.6 fL (80-100); MPV 8.8 fL (7.6-11.3); Monocytes % 9.9 % (3.3-12.3); Neutrophils % 58.5 % (41.7-73.7); Nucleated Red Blood Cells % 0.1 % (0-0); Platelets 260 thou/uL (152-406); RBC Red Blood Cell Count 4.22 M/uL (3.86-4.86); Red Cell Distribution Width 14.3 % (12.1-15.2)
[2024-08-09 11:00] LABS: PT Prothrombin Time 11.5 SECONDS (9.4-12.5); PTT, Activated Partial Thromb 35.2 SECONDS (24.3-36.9); Protime INR 1.1
[2024-08-09 11:04] LABS: Anion Gap 7.8 mEq/L (5.0-15.0); Potassium 4.8 mEq/L (3.5-5.1)
[2024-08-11] MEDS: Ringers Lactate 1,000 ML IV ONE (10:17)
[2024-08-11] MEDS: LIDOCAINE HCL/EPINEPHRINE 20 ML MDV ONE (10:20)
[2024-08-11] MEDS: CEFAZOLIN SODIUM 2 GM/VIAL ONE (10:52)
[2024-08-11] MEDS ORDERED: LIDOCAINE 2% MPF 5 ML VIAL ONE (11:02)
[2024-08-11] MEDS ORDERED: propofoL 200 MG/20 ML VIAL IV ONE (11:03)
[2024-08-11] MEDS ORDERED: ROCURONIUM 50 MG/5 ML VIAL IV ONE (11:03)
[2024-08-11] MEDS ORDERED: FENTANYL CITR 100 MCG/2 ML ONE (11:03)
[2024-08-11] MEDS ORDERED: ONDANSETRON 4 MG/2 ML VIAL ONE (11:05)
--- NOTE | 2024-08-11 11:59 | EKG ---
Test Date: 2024-08-09 Test Time: 10:07:56 Cordwainer: HERVE MEASUREMENT RESULTS: Intervals: Rate: 139 NM: QRSD: 70 QT: 318 QTc: 483 Leroy: P: NM: QRS: 65 T: 43 INTERPRETIVE STATEMENTS: Atrial fibrillation with rapid ventricular response Low voltage QRS Nonspecific ST and T wave abnormality, probably digitalis effect Abnormal ECG Compared to ECG 01/02/2024 14:47:38 Low QRS voltage now present ST (T wave) deviation still present Electronically Signed On 08-11-24 11:56:53 DESIGN DRAFTSMAN by Raphael Blount
[2024-08-11] MEDS: EPINEPHRINE 1 MG/ML VIAL ONE (12:31)
[2024-08-11] MEDS: dexAMETHasone 10 MG/ML VIAL ONE (12:31)
[2024-08-11] MEDS: ROPIVACAINE HCL 40 ML ONE (12:33)
[2024-08-11] MEDS: ROPLVACAINE HCL 40 ML ONE (12:33)
[2024-08-11] MEDS: METOPROLOL TARTRATE 5 MG/5 ML INJ IV ONE (13:04)
[2024-08-11] MEDS: VASOPRESSIN 20 UNIT/ML VIAL ONE (13:24)
[2024-08-11] MEDS: SUGAMMADEX SODIUM 200 MG/2 ML VIAL IV ONE ×2 (13:42→14:40)
[2024-08-11] MEDS ORDERED: FAMOTIDINE 20 MG TAB PO PRN (14:52)
[2024-08-11] MEDS ORDERED: AMIODARONE HCL 450 MG in D5W 241 ML IV SCH (15:00)
[2024-08-11] MEDS: NA CHLORIDE 0.9% 1,000 ML IV SCH (15:18)
[2024-08-11] MEDS: AMIODARONE HCL 150 MG in D5W 100 ML IV STA (15:18)
--- NOTE | 2024-08-11 15:23 | P.HP ---
Certification for Inpatient Patient admitted to: Observation With expected LOS: <2 Midnights Patient will require the following post-hospital care: None Practitioner: I am a practitioner with admitting privileges, knowledge of patient current condition, hospital course, and medical plan of care. Services: Services provided to patient in accordance with Admission requirements found in Title 42 Section 412.3 of the Code of Federal Regulations Patient History Date of Service: 08/11/24 Reason for admission: A-fib RVR History of Present Illness: 79-year-old female with history of atrial fibrillation on chronic anticoagulation, hypertension, ventral hernia was brought into the OR for an outpatient hernia repair today. After giving anesthesia patient developed A-fib RVR with rates up to 150. Given the A-fib RVR case was abandoned and patient was brought to PACU. Patient remains in A-fib with RVR with rates between 115 and 145 despite doses of metoprolol in OR. Patient reports that she was previously on amiodarone but has not taken it for the last 3 months or so as she ran out after her hospitalization. Last dose of Eliquis was on Thursday the . Patient will be admitted to the hospital for A-fib RVR Allergies No Known Allergies Allergy (Verified 08/09/24 08:54) Home Medications: Apixaban [Eliquis] 5 mg PO BID #60 tab 01/11/24 Calcium/Vits D3/C/K2/Minerals [Bone Essentials Capsule] 1 cap PO DAILY 08/09/24 Carboxymethylcellulose Sodium [Refresh Tears] 2 drops EACH EYE DAILY 08/09/24 Cholecalciferol (Vitamin D3) [Vitamin D3] 25 mcg PO DAILY 08/09/24 Famotidine [Pepcid AC] 20 mg PO DAILYPRN PRN 08/09/24 Ginseng/Astragalus 2 cap PO TID 08/09/24 Losartan Potassium 25 mg PO DAILY 08/09/24 Magnesium Oxide [Magnesium] 250 mg PO DAILY 08/09/24 Turmeric/Turmeric Root Extract [Turmeric 500 mg Capsule] 1 each PO DAILY 08/09/24 - Past Medical/Surgical History -: Hypertension -: Atrial fibrillation on chronic anticoagulation -: Ventral hernia -: Hysterectomy - Social History Alcohol use: No CD- Drugs: No Caffeine use: Yes Place of Residence: Home Review of Systems 10-point ROS is otherwise unremarkable Gastrointestinal: Abdominal Pain Physical Examination - Vital Signs Temperature: 98.4 F Blood Pressure: 148/88 Pulse: 128 Respirations: 15 - Physical Exam General: Alert, In no apparent distress, Oriented x3 HEENT: Atraumatic, PERRLA, EOMI Neck: Supple, 2+ carotid pulse no bruit, No LAD Respiratory: Clear to auscultation bilaterally, Normal air movement Cardiovascular: Irregular heart rate/rhythm (A-fib rate 120- 130) Gastrointestinal: Normal bowel sounds, No tenderness Musculoskeletal: No tenderness Integumentary: No rashes Neurological: Normal speech, Normal strength at 5/5 x4 extr Assessment and Plan - Plan Assessment: Atrial fibrillation with rapid ventricular response-on chronic anticoagulation Hypertension Ventral hernia Plan: Atrial fibrillation with rapid ventricular response-on chronic anticoagulation Patient had stopped taking amiodarone outpatient about 3 months ago Reports she ran out and nobody refilled her prescription has been compliant with Eliquis, was taking it until Thursday the Discussed case with cardiology will start amiodarone bolus and drip Monitor on telemetry N.p.o. after midnight in case of need for cardioversion Eliquis resumed, general surgery does not plan for surgical intervention during this hospitalization Hypertension Continue home medications Ventral hernia Outpatient management DVT PPX: Eliquis Code status: Full Discharge Plan: Home Plan to discharge in: 24 Hours - Advance Directives Does patient have a Living Will: No Does patient have a Durable POA for Healthcare: No - Code Status/Comfort Care Code Status Assessed: Yes (Full code) Critical Care: No Time Spent Managing Pts Care (In Minutes): 62
[2024-08-11] MEDS: ACETAMINOPHEN 500 MG TAB PO ONE (15:42)
[2024-08-11] MEDS: AMIODARONE HCL 900 MG in Dextrose 5%-Water 482 ML IV SCH (15:43)
[2024-08-11] MEDS: APIXABAN 5 MG TABLET PO SCH (21:11)
[2024-08-12 01:15] VITALS: BMI 22.8
[2024-08-12 05:16] LABS: Absolute Eosinophils 0.1 K/uL (0-0.5); Absolute Lymphocytes (CBC) 1.1 K/uL (0.7-4.9); Absolute Monocytes 0.4 K/uL (0.1-1.3); Absolute Neutrophil 2.2 K/uL (1.8-8.0); Basophils % 0.9 % (0-1.3); Eosinophils % 1.8 % (0-4.4); Hematocrit 32.9 % (36.0-45.0); Lymphocytes % 28.8 % (15.3-44.8); MCHC 33.3 g/dL (32.0-36.0); MCV 90.1 fL (80-100); MPV 8.7 fL (7.6-11.3); Monocytes % 10.2 % (3.3-12.3); Neutrophils % 58.3 % (41.7-73.7); Platelets 178 thou/uL (152-406); RBC Red Blood Cell Count 3.65 M/uL (3.86-4.86); Red Cell Distribution Width 14.4 % (12.1-15.2)
[2024-08-12 05:46] LABS: Anion Gap 7.8 mEq/L (5.0-15.0); Potassium 3.8 mEq/L (3.5-5.1); Thyroid Stimulating Hormone 3.45 uIU/mL (0.358-3.740)
[2024-08-12] MEDS: CARBOXYMETHYLCELLULOSE SODIUM 0.5% 15 ML EACH EYE SCH (09:00)
[2024-08-12] MEDS ORDERED: HOME MED 1 EA UNK (Losartan Potassium [Losartan Potassium] 25 MG Tablet) PO SCH (09:00)
--- NOTE | 2024-08-12 10:02 | P.PN ---
Date of Service: 08/12/24 Subjective: No acute events overnight Remains in A-fib rate around 115 N.p.o. in case of cardioversion ROS: 10 point ROS as noted above, otherwise negative Physical exam GEN: Alert, oriented, NAD HEENT: Normal conjunctiva, sclera anicteric CV: Regular rate and rhythm, no edema Pulm: Nonlabored respirations on room air ABD: Soft, nontender, nondistended MSK: No joint tenderness Integumentary: No rashes Neuro: Normal speech, normal affect Vitals reviewed Assessment: Atrial fibrillation with rapid ventricular response-on chronic anticoagulation Hypertension Ventral hernia Plan: Atrial fibrillation with rapid ventricular response-on chronic anticoagulation Patient had stopped taking amiodarone outpatient about 3 months ago Reports she ran out and nobody refilled her prescription Continue IV Amiodarone Monitor on telemetry N.p.o. in case of need for cardioversion Eliquis resumed, general surgery does not plan for surgical intervention during this hospitalization Await cardiology decision about possible cardioversion Hypertension Continue home medications Ventral hernia Outpatient management DVT PPX: Eliquis Code status: Carpet Sewer Spent Managing Pts Care (In Minutes): 35
[2024-08-12] MEDS: LOSARTAN POTASSIUM 50 MG TABLET PO SCH (11:33)
[2024-08-12] MEDS ORDERED: NA CHLORIDE 0.9% 500 ML ONE (12:10)
[2024-08-12] MEDS ORDERED: LIDOCAINE 1% MPF 5 ML VIAL ONE (12:50)
[2024-08-12] MEDS ORDERED: propofoL 200 MG/20 ML VIAL IV ONE (12:50)
[2024-08-12] MEDS ORDERED: METOPROLOL TARTRATE 5 MG/5 ML INJ IV ONE (13:12)
[2024-08-12 14:40] VITALS: O2SAT 98
[2024-08-12] MEDS: DOCUSATE NA 100 MG CAP PO PRN (15:09)
[2024-08-13] MEDS: ACETAMINOPHEN 325 MG TABLET PO PRN (03:10)
[2024-08-13 06:29] LABS: Anion Gap 11.5 mEq/L (5.0-15.0); Magnesium 2.1 mg/dL (1.6-2.4); Potassium 3.5 mEq/L (3.5-5.1)
[2024-08-13 06:30] LABS: Absolute Lymphocytes (CBC) 0.9 K/uL (0.7-4.9); Absolute Monocytes 0.5 K/uL (0.1-1.3); Absolute Neutrophil 3.8 K/uL (1.8-8.0); Basophils % 0.8 % (0-1.3); Eosinophils % 0.7 % (0-4.4); Hematocrit 34.8 % (36.0-45.0); Hemoglobin 11.7 g/dL (12.0-15.0); Lymphocytes % 17.9 % (15.3-44.8); MCH 30.4 pg (27.0-35.0); MCHC 33.6 g/dL (32.0-36.0); MCV 90.5 fL (80-100); MPV 8.6 fL (7.6-11.3); Monocytes % 9.4 % (3.3-12.3); Neutrophils % 71.2 % (41.7-73.7); Platelets 195 thou/uL (152-406); RBC Red Blood Cell Count 3.85 M/uL (3.86-4.86); Red Cell Distribution Width 14.4 % (12.1-15.2)
[2024-08-13] MEDS: POTASSIUM CL SA 10 MEQ TAB PO ONE (07:47)
[2024-08-13] MEDS: TRAMADOL HCL 50 MG TAB PO ONE (08:07)
[2024-08-13 14:30] VITALS: BP 136/67; TEMP 98.1
[2024-08-13] MEDS: AMIODARONE HCL 200 MG TAB PO ONE (14:49)
[2024-08-13] MEDS ORDERED: AMIODARONE HCL 200 MG TAB PO SCH (21:00)
--- NOTE | 2024-08-15 07:16 | TEE ---
TRANSESOPHAGEAL ECHOCARDIOGRAM REPORT CARDIOLOGY DEPARTMENT DATE OF STUDY: 08/12/2024 HEIGHT: 5'5 WEIGHT: 137 lbs DIAGNOSIS: CARDIOVERSION COMMENTS: 1. EDVIN PROBE WAS INSERTED WITH NO DIFFICULTY. 2. NO LEFT ATRIAL APPENDAGE THROMBUS IS SEEN. TECHNOLOGIST: SHELL CARSON
== END 2024-08-13 16:01 | disposition home or self-care (01) | DRG 310 ==
LOC: OR 10:17 → 2ND 14:21 → OBSVTOIN 08-12 17:16
PROVIDERS: ADMIT Hospitalist; ATTEND Hospitalist
DX: I48.91 Unspecified atrial fibrillation (principal); K43.9 Ventral hernia without obstruction or gangrene; I10 Essential (primary) hypertension; T41.45XA Adverse effect of unspecified anesthetic, initial encounter; Z79.01 Long term (current) use of anticoagulants; Z91.148 Patient's other noncompliance with medication regimen for other reason; Z79.899 Other long term (current) drug therapy; Z90.710 Acquired absence of both cervix and uterus
CPT/HCPCS: 01922; 36415; 80048; 83735; 84439; 84443; 85025; 85610; 85730; 93005; 93312; G0378; G0379; J0171; J0282; J1100; J2003; J2405; J2704; J3010; J7030; J7040; J7060; J7120

== ENCOUNTER 2024-08-16 13:33 | Inpatient (IN) | payer OTHER, BC ==
[2024-08-16] MEDS ORDERED: ONDANSETRON 4 MG/2 ML VIAL ONE (13:45)
[2024-08-16] MEDS ORDERED: FENTANYL CITR 100 MCG/2 ML ONE (13:46)
[2024-08-16] MEDS ORDERED: NA CHLORIDE 0.9% 1,000 ML ONE ×2 (13:46→19:33)
[2024-08-16 14:11] LABS: PT Prothrombin Time 18.4 SECONDS (9.4-12.5); Protime INR 1.76
[2024-08-16 14:12] LABS: Absolute Lymphocytes (CBC) 0.8 K/uL (0.7-4.9); Absolute Monocytes 0.6 K/uL (0.1-1.3); Absolute Neutrophil 4.7 K/uL (1.8-8.0); Basophils % 0.3 % (0-1.3); Eosinophils % 0.6 % (0-4.4); Hematocrit 37.9 % (36.0-45.0); Hemoglobin 13.1 g/dL (12.0-15.0); Lymphocytes % 12.9 % (15.3-44.8); MCH 30.6 pg (27.0-35.0); MCHC 34.4 g/dL (32.0-36.0); MCV 88.8 fL (80-100); MPV 8.6 fL (7.6-11.3); Monocytes % 9.2 % (3.3-12.3); Nucleated Red Blood Cells % 0.1 % (0-0); Platelets 217 thou/uL (152-406); RBC Red Blood Cell Count 4.27 M/uL (3.86-4.86); Red Cell Distribution Width 13.8 % (12.1-15.2)
[2024-08-16 14:18] LABS: Specific Gravity < 1.005 (1.005-1.030); Sqamous Epithelial <5 /HPF (None Seen); Urine Bacteria <20 /HPF (<20); Urine Bilirubin NEGATIVE (Negative); Urine Blood Negative (Negative); Urine Clarity Clear (Clear); Urine Color Colorless (Yellow); Urine Culture Reflex Order NOT NEEDED; Urine Glucose NEGATIVE (Negative); Urine Ketones TRACE (Negative); Urine Microscopic Reflex YN ORDER UMIC; Urine Nitrite NEGATIVE (Negative); Urine Protein NEGATIVE (Negative); Urine RBC <5 /HPF (None Seen); Urine Urobilinogen Normal (Normal); Urine WBC <5 /HPF (<5); Urine Yeast (Budding) Trace /HPF (None Seen); Urine pH 7.5 (5.0-7.0)
[2024-08-16 14:25] LABS: Albumin 3.7 g/dL (3.4-5.0); Albumin/Globulin Ratio 1.1 (1.1-1.8); Anion Gap 9.7 mEq/L (5.0-15.0); Bilirubin Direct 0.3 mg/dL (0-0.2); Bilirubin Indirect, Calculated 0.7 mg/dL (0.2-0.8); Globulin 3.5 g/dL (2.3-3.5); Potassium 3.7 mEq/L (3.5-5.1); Protein, Total 7.2 g/dL (6.4-8.2)
[2024-08-16 14:27] LABS: Troponin High Sensitivity 121.4 pg/mL (<58.9)
--- NOTE | 2024-08-16 14:42 | RAD REPORT ---
EXAM: Chest Single View HISTORY: COUGH COMPARISON: 01/06/2024 FINDINGS: LUNGS/PLEURA: Diffuse prominence of the pulmonary interstitium. Small bilateral pleural effusions. MEDIASTINUM: The mediastinal silhouette is within normal limits. CARDIAC: Mild cardiomegaly UPPER ABDOMEN: No significant abnormality. BONES: No acute abnormality. LINES/TUBES/OTHER: N/A IMPRESSION: Pulmonary edema with small bilateral effusions.
--- NOTE | 2024-08-16 14:44 | RAD REPORT ---
EXAMINATION: Hip Right 2 View CLINICAL INDICATION: Female, 79 years old. PAIN RIGHT COMPARISON: No prior exam. FINDINGS: Slightly impacted right subcapital femoral neck fracture suspected. No dislocation is seen. IMPRESSION: Slightly impacted right femoral neck fracture suspected.
--- NOTE | 2024-08-16 14:44 | RAD REPORT ---
EXAMINATION: Pelvis CLINICAL INDICATION: Female, 79 years old. PAIN COMPARISON: No prior exam. FINDINGS: Suspected right femoral neck fracture. No other pelvic fractures or left hip fracture identified. Jeremiah ency through the left superior pubic ramus may be from overlapping anatomy. IMPRESSION: Right femoral neck fracture suspected. Left superior pubic ramus lucency may be from overlapping aron cameron.
--- NOTE | 2024-08-16 14:45 | RAD REPORT ---
EXAMINATION: Femur Right CLINICAL INDICATION: Female, 79 years old. PAIN RIGHT COMPARISON: No prior exam. FINDINGS: Slightly impacted right subcapital femoral neck fracture suspected. No other femur fracture seen. Spu rring at the patellofemoral compartment. Mild medial greater than lateral compartment joint space narrowing at the knee. IMPRESSION: Suspected right subcapital femoral neck fracture.
--- NOTE | 2024-08-16 15:07 | EDPHYS ---
Physician Documentation [facility] Name: Cassy Del Rio Age: 79 yrs Sex: Female : 1945 Arrival Date: 08/16/2024 Time: 13:33 Bed 18 Private MD: Srinivas [facility] ED Physician Faustino Martino HPI: 08/16 14:08 This 79 yrs old Female presents to ER via EMS with complaints of Fall Injury, raza Hip Pain. 14:08 Details of fall: The patient fell from an upright position, while standing, while raza walking. Onset: The symptoms/episode began/occurred yesterday, last night. Associated injuries: The patient sustained right hip and right upper thigh, painful injury. Severity of symptoms: At their worst the symptoms were moderate, in the emergency department the symptoms are unchanged. The patient has not experienced similar symptoms in the past. Historical: - Allergies: 13:36 No Known Allergies; kc6 - PMHx: 13:36 Hypertensive disorder; Atrial fibrillation; kc6 - Immunization history:: Adult Immunizations up to date. - Infectious Disease History:: Denies. - Social history:: Smoking status: Patient denies any tobacco usage or history of. ROS: 14:10 Constitutional: Negative for fever, chills, and weight loss, Eyes: Negative for injury, raza pain, redness, and discharge, ENT: Negative for injury, pain, and discharge, Neck: Negative for injury, pain, and swelling, Cardiovascular: Negative for chest pain, palpitations, and edema, Respiratory: Negative for shortness of breath, cough, wheezing, and pleuritic chest pain, Abdomen/GI: Negative for abdominal pain, nausea, vomiting, diarrhea, and constipation, Back: Negative for injury and pain, : Negative for injury, bleeding, discharge, and swelling, Skin: Negative for injury, rash, and discoloration, Neuro: Negative for headache, weakness, numbness, tingling, and seizure, Psych: Negative for depression, anxiety, suicide ideation, homicidal ideation, and hallucinations, Allergy/Immunology: Negative for hives, rash, and allergies, Endocrine: Negative for neck swelling, polydipsia, polyuria, polyphagia, and marked weight changes, Hematologic/Lymphatic: Negative for swollen nodes, abnormal bleeding, and unusual bruising, 14:10 MS/extremity: Positive for injury or acute deformity, decreased range of motion, pain, swelling, tenderness, of the right hip, right gluteal fold, right inner thigh and right upper thigh, Exam: 14:18 Constitutional: This is a well developed, well nourished patient who is awake, alert, raza and in no acute distress. Head/Face: Normocephalic, atraumatic. Eyes: Pupils equal round and reactive to light, extra-ocular motions intact. Lids and lashes normal. Conjunctiva and sclera are non-icteric and not injected. Cornea within normal limits. Periorbital areas with no swelling, redness, or edema. ENT: Nares patent. No nasal discharge, no septal abnormalities noted. Tympanic membranes are normal and external auditory canals are clear. Oropharynx with no redness, swelling, or masses, exudates, or evidence of obstruction, uvula midline. Mucous membranes moist. Neck: Trachea midline, no thyromegaly or masses palpated, and no cervical lymphadenopathy. Supple, full range of motion without nuchal rigidity, or vertebral point tenderness. No Meningismus. Chest/axilla: Normal chest wall appearance and motion. Nontender with no deformity. No lesions are appreciated. Cardiovascular: Regular rate and rhythm with a normal S1 and S2. No gallops, murmurs, or rubs. Normal PMI, no JVD. No pulse deficits. Respiratory: Lungs have equal breath sounds bilaterally, clear to auscultation and percussion. No rales, rhonchi or wheezes noted. No increased work of breathing, no retractions or nasal flaring. Abdomen/GI: Soft, non-tender, with normal bowel sounds. No distension or tympany. No guarding or rebound. No evidence of tenderness throughout. Back: No spinal tenderness. No costovertebral tenderness. Full range of motion. Skin: Warm, dry with normal turgor. Normal color with no rashes, no lesions, and no evidence of cellulitis. Neuro: Awake and alert, GCS 15, oriented to person, place, time, and situation. Cranial nerves II-XII grossly intact. Motor strength 5/5 in all extremities. Sensory grossly intact. Cerebellar exam normal. Normal gait. Psych: Awake, alert, with orientation to person, place and time. Behavior, mood, and affect are within normal limits. 14:18 Musculoskeletal/extremity: ROM: limited active range of motion, limited passive range of motion, limited active range of motion due to pain, limited passive range of motion due to pain, Circulation is intact in all extremities. Sensation intact. Compartment Syndrome exam of affected extremity: is normal. Weight bearing: is unable to bear weight, DVT Exam: no swelling, negative Homans' sign noted on exam, no appreciated bluish discoloration, no erythema, no increased warmth, pain, tenderness, 15:11 ECG was reviewed by the Attending Physician. [facility] Vital Signs: 13:34 BP 177 / 101; Pulse 81; Resp 16 S; Pulse Ox 100% on R/A; Weight 62.14 kg (R); Height 5 kc6 ft. 5 in. (R); 14:26 BP 159 / 89; Pulse 84; Resp 18 S; Pulse Ox 100% ; kc6 18:29 BP 118 / 60; Pulse 85; Resp 17 S; Pulse Ox 100% ; kc6 13:34 Body Mass Index 22.80 (62.14 kg, 165.1 cm) kc6 MDM: 13:34 Medical Screening Exam initiated [facility] 14:16 Differential diagnosis: hip fracture, intertrochanteric fracture, femoral neck raza fracture, femoral shaft fracture, bursitis, arthritis, strain. Differential diagnosis: contusion, fracture, multiple trauma, sprain, strain. Data reviewed: vital signs, nurses notes, lab test result(s), EKG, radiologic studies, plain films. Consideration of Admission/Observation Patient was admitted/placed on observation. Escalation of care including admission/observation considered. I considered the following discharge prescriptions or medication management in the emergency department Medications were administered in the Emergency Department. See MAR. Independent interpretation of the following test(s) in the Emergency Department X-Ray: My interpretation is right hip x ray. Care significantly affected by the following chronic conditions: Hypertension, a fib. 08/16 13:38 Order name: Basic Metabolic Panel; Complete Time: 14:31 [facility] 08/16 13:38 Order name: CBC with Diff; Complete Time: 14: [facility] 08/16 13:38 Order name: LFT's; Complete Time: 14:31 [facility] 08/16 13:38 Order name: Magnesium; Complete Time: 14: [facility] 08/16 13:38 Order name: NT PRO-BNP; Complete Time: 14: [facility] 08/16 13:38 Order name: PT-INR; Complete Time: 14:31 [facility] 08/16 13:38 Order name: Troponin HS; Complete Time: 14:31 [facility] 08/16 13:38 Order name: Urinalysis w/ reflexes; Complete Time: 14:31 [facility] 08/16 13:38 Order name: Type And Screen: hold; Complete Time: 16:05 [facility] 08/16 16:08 Order name: ABO/RH no charge; Complete Time: 18:18 EDMS 08/16 18:08 Order name: CBC with Automated Diff EDMS 08/16 18:08 Order name: CBC with Automated Diff EDMS 08/16 18:08 Order name: Comprehensive Metabolic Panel EDMS 08/16 18:08 Order name: Comprehensive Metabolic Panel EDMS 08/16 18:08 Order name: Protime (+INR) EDMS 08/16 18:08 Order name: Protime (+INR) EDMS 08/16 18:08 Order name: PTT, Activated Partial Thromb EDMS 08/16 18:08 Order name: PTT, Activated Partial Thromb EDMS 08/16 18:08 Order name: Troponin High Sensitivity EDMS 08/16 18:08 Order name: Troponin High Sensitivity EDMS 08/16 18:08 Order name: Troponin High Sensitivity EDMS 08/16 18:08 Order name: Troponin High Sensitivity EDMS 08/16 13:38 Order name: XRAY Chest (1 view); Complete Time: 14:55 [facility] 08/16 13:38 Order name: Pelvis XRAY; Complete Time: 14:55 raza 08/16 13:38 Order name: Hip Right 2 View XRAY; Complete Time: 14:55 [facility] 08/16 13:38 Order name: Femur Right XRAY; Complete Time: 14:55 [facility] 08/16 18:08 Order name: CONS Physician Consult EDMN 08/16 18:08 Order name: CONS Physician Consult EDMN 08/16 13:38 Order name: Cardiac monitoring; Complete Time: 14:00 [facility] 08/16 13:38 Order name: EKG - Nurse/Tech; Complete Time: 14:17 [facility] 08/16 13:38 Order name: IV Saline Lock; Complete Time: 13:59 [facility] 08/16 13:38 Order name: Labs collected and sent; Complete Time: 14:00 [facility] 08/16 13:38 Order name: O2 Per Protocol; Complete Time: 13:40 raza 08/16 13:38 Order name: O2 Sat Monitoring; Complete Time: 13:40 raza 08/16 14:02 Order name: Labs - recollect needed: collect abo\E\rh no charge; Complete Time: 14:47 bd 08/16 15:08 Order name: Gary; Complete Time: 16:05 [facility] EC:11 Rate is 73 beats/min. Rhythm is regular. QRS [place] is Normal. UT interval is normal. QRS raza interval is normal. QT interval is normal. No Q waves. T waves are Normal. No ST changes noted. Clinical impression: NSR w/ Non-specific ST/T Changes and No evidence of ischemia. Interpreted by me. Reviewed by me. Administered Medications: 14:56 Discontinued: ns 0.9% 1000 ml IV at 125 ml/hr once; to be given as a bolus over 60 raza minutes 13:59 Drug: NS 0.9% IV 1000 ml IV at 125 ml/hr once; to be given as a bolus over 60 minutes [facility] Route: IV; Rate: 125 ml/hr; Site: left antecubital; 14:17 Drug: fentaNYL (PF) IVP 25 mcg IVP once Route: IVP; Site: left antecubital; kc6 14:47 Follow up: Response: No adverse reaction; Pain is decreased; RASS: Alert and Calm (0) [facility] 14:17 Drug: Ondansetron IVP 4 mg IVP once; over 2 minutes Route: IVP; Site: left antecubital; kc6 14:47 Follow up: Response: No adverse reaction 6 16:06 Drug: Furosemide IVP 20 mg IVP once; give over 2 minutes Route: IVP; Site: left kc6 antecubital; 18:30 Follow up: Response: No adverse reaction [facility] Disposition Summary: 08/16/24 15:06 Hospitalization Ordered Notes: Hospitalization Status: Inpatient Admission raza Provider: Dutch Rodrigues cha Condition: Fair raza Problem: new raza Symptoms: have improved raza Bed/Room Type: Standard raza Location: Telemetry/MedSurg (observation)(08/17/24 12:58) 6 Room Assignment: 430(08/17/24 12:58) [facility] Diagnosis - Nondisplaced fracture of base of neck of right femur, initial encounter for closed raza fracture - Fall on same level, unspecified raza - Chronic combined systolic (congestive) and diastolic (congestive) heart failure 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 Total time: 50 minutes Signatures: Dispatcher [employer] EDDonna Rubio Corey, MD MD cha Garcia, Cindy RN RN cg Raimundo Goodman RN RN ja1 Ann Miller RN RN kc6 Hilda Oseguera6 Cary Butcher, PAPER ROLLER PAPER ROLLER cm12 Morteza Aragon MD MD ec2 Corrections: (The following items were deleted from the chart) 13:38 13:38 BASIC METABOLIC PANEL+C.LAB.BRZ ordered. EDMS EDMS 13:38 13:38 CBC+H.LAB.BRZ ordered. EDMS EDMS 13:38 13:38 HEPATIC FUNCTION+C.LAB.BRZ ordered. EDMS EDMS 13:38 13:38 MAGNESIUM+C.LAB.BRZ ordered. EDMS EDMS 13:38 13:38 PROBNP+C.LAB.BRZ ordered. EDMS EDMS 13:38 13:38 PROTIME (+INR)+COAG.LAB.BRZ ordered. EDMS EDMS 13:38 13:38 Troponin High Sensitivity+C.LAB.BRZ ordered. EDMS EDMS 13:38 13:38 Urinalysis+U.LAB.BRZ ordered. EDMS EDMS 13:38 13:38 Chest Single View+RAD.RAD.BRZ ordered. EDMS EDMS 13:39 13:39 Pelvis+RAD.RAD.BRZ ordered. EDMS EDMS 13:39 13:39 Hip Right 2 View+RAD.RAD.BRZ ordered. EDMS EDMS 13:39 13:39 Femur Right+RAD.RAD.BRZ ordered. EDMS EDMS 13:39 13:39 TYPE AND SCREEN+BB.LAB.BRZ ordered. EDMS EDMS 15:29 15:06 raza bd 17:52 15:29 219 bd ja1 18:09 17:52 ja1 bd 18:16 18:09 219 bd ja1 19:27 15:06 Telemetry/MedSurg (Inpatient) [facility] 19:27 18:16 [facility] 08/17 12:58 08/16 19:[address] [facility] bc6 08/17 12:58 08/16 19:27 [facility] bc6
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
[2024-08-16] MEDS ORDERED: FUROSEMIDE 20 MG/ 2ML VIAL ONE (15:09)
[2024-08-16] MEDS ORDERED: ACETAMINOPHEN 500 MG TAB PO PRN (18:01)
[2024-08-16 19:29] VITALS: BMI 22.8
[2024-08-16] MEDS: NA CHLORIDE 0.9% 1,000 ML IV SCH (19:30)
[2024-08-17] MEDS ORDERED: MORPHINE 2 MG/ML SYR ONE (04:53)
[2024-08-17] MEDS ORDERED: ONDANSETRON 4 MG/2 ML VIAL ONE (04:53)
[2024-08-17] MEDS: MORPHINE 2 MG/ML SYR IV PRN (05:02)
[2024-08-17] MEDS: ONDANSETRON 4 MG/2 ML VIAL IV PRN (05:03)
[2024-08-17 05:11] LABS: Absolute Eosinophils 0.1 K/uL (0-0.5); Absolute Lymphocytes (CBC) 0.8 K/uL (0.7-4.9); Absolute Monocytes 0.5 K/uL (0.1-1.3); Absolute Neutrophil 3.9 K/uL (1.8-8.0); Basophils % 0.6 % (0-1.3); Eosinophils % 1.9 % (0-4.4); Hematocrit 35.2 % (36.0-45.0); Hemoglobin 12.1 g/dL (12.0-15.0); Lymphocytes % 15.2 % (15.3-44.8); MCH 30.5 pg (27.0-35.0); MCHC 34.5 g/dL (32.0-36.0); MCV 88.4 fL (80-100); MPV 8.1 fL (7.6-11.3); Monocytes % 9.8 % (3.3-12.3); Neutrophils % 72.5 % (41.7-73.7); Nucleated Red Blood Cells % 0.2 % (0-0); Platelets 209 thou/uL (152-406); RBC Red Blood Cell Count 3.98 M/uL (3.86-4.86); Red Cell Distribution Width 14.1 % (12.1-15.2)
[2024-08-17 05:16] LABS: PT Prothrombin Time 14.8 SECONDS (9.4-12.5); PTT, Activated Partial Thromb 34.1 SECONDS (24.3-36.9); Protime INR 1.41
[2024-08-17 05:27] LABS: Albumin 3.2 g/dL (3.4-5.0); Albumin/Globulin Ratio 1.1 (1.1-1.8); Anion Gap 8.6 mEq/L (5.0-15.0); Bilirubin Total 0.8 mg/dL (0.2-1.0); Globulin 2.9 g/dL (2.3-3.5); Potassium 3.6 mEq/L (3.5-5.1); Protein, Total 6.1 g/dL (6.4-8.2); Troponin High Sensitivity 58.6 pg/mL (<58.9)
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
--- NOTE | 2024-08-17 13:57 | P.PN ---
Subjective Date of Service: 08/17/24 Patient is clinically doing well. Patient's pain is controlled. Rate is controlled as far as hemodynamic status. Cardiology to evaluate for clearance. Spoke with orthopedic and plan is for surgery tomorrow afternoon. Review of Systems 10-point ROS is otherwise unremarkable Physical Examination - Vital Signs Temperature: 98.3 F Blood Pressure: 116/63 Pulse: 81 Respirations: 16 Pulse Ox (%): 91 - Physical Exam General: Alert, In no apparent distress, Oriented x3 Respiratory: Clear to auscultation bilaterally, Normal air movement Cardiovascular: Regular rate/rhythm, Normal S1 S2, No murmurs Gastrointestinal: Normal bowel sounds, Soft and benign, Non-distended, No tenderness Musculoskeletal: No clubbing, No swelling, No tenderness Integumentary: No rashes Neurological: Sensation intact, Cranial nerves 3-12 intact - Studies Laboratory Data (last 24 hrs) 08/16/24 08/16/24 08/16/24 13:45 13:45 13:45 WBC 6.20 Hgb 13.1 Hct 37.9 Plt Count 217 PT 18.4 H INR 1.76 Sodium 140 Potassium 3.7 BUN 9 Creatinine 0.69 Glucose 113 H Magnesium 2.0 Total Bilirubin 1.0 AST 22 ALT 39 Alkaline Phosphatase 87 Medications List Reviewed: Yes Assessment & Plan - Problems (Diagnosis) (1) Femur fracture, right Current Visit: Yes Status: Acute Qualifiers: Encounter type: initial encounter Fracture type: closed Fracture alignment: displaced (2) Atrial fibrillation Current Visit: No Status: Acute (3) HTN (hypertension) Current Visit: No Status: Acute - Plan Plan: Continue with plan of care as mentioned below: 1. Right femur fracture; plan is to go to the OR once patient is off Eliquis for 48 hours. N.p.o. Thursday evening for surgery on afternoon. Await for cardiac clearance at this time as well. Cardiology consulted as patient with atrial fibrillation 2. Atrial fibrillation; rate controlled. Continue with beta-saira therapy. Surgery consulted for further evaluation 3. Hypertension; strict blood pressure control 4. GI DVT prophylaxis Discharge Plan: Home Plan to discharge in: Greater than 2 days - Advance Directives Does patient have a Living Will: No Does patient have a Durable POA for Healthcare: Yes - Code Status/Comfort Care Code Status: Full Code Critical Care: No Time Spent Managing PTS Care (In Minutes): 35
--- NOTE | 2024-08-17 19:08 | CON ---
Date of Consultation: 08/17/2024 Reason For Consultation: Right hip pain. History Of Present Illness: Ms. Del Rio is an 79-year-old female who presented to the ER after sust aining a fall onto her right side with subsequent pain and inability to bear weight. The patient had x-rays in the emergency room that demonstrated a displaced right femoral neck fracture. The patient has a history of an umbilical hernia as well as atrial fibrillation. The patient's surgery in the ast was delayed secondary to atrial fibrillation. The patient had treatment by Cardiology for her at [facility] and she states she was cleared for surgery. She denies any other musculoskeletal c omplaints at this time. Review of Systems: As above, otherwise negative. Past Medical History: Includes atrial fibrillation, hypertension. Past Surgical History: Includes, 1.Abdominal surgery for small bowel obstruction. 2.Hysterectomy. Family History: Reviewed and noncontributory. Social History: Denies tobacco, alcohol, or drug use. Lives at home. Allergies: NO KNOWN DRUG ALLERGIES. Home Medications: Include Eliquis, Pepcid, losartan, magnesium, turmeric, amiodarone. Physical Examination: General: No apparent distress. HEENT: Normocephalic, atraumatic. Neck: Supple. Cardiovascular: Brisk cap refill to all digits. Chest: Nonlabored breathing. Abdomen: Nondistended. Psychiatric: Responsive to exam. Musculoskeletal: Right lower extremity functional range of motion without pain. No gross deformitie s. No obvious dislocations. Bilateral upper extremities, functional range of motion without pain. No gross deformities. No obvious dislocations. Left lower extremity functional range of motion with out pain. No gross deformities. No obvious dislocations. Right lower extremity, tenderness to palp ation over the right hip. Pain with range of motion right hip. No tenderness over the knee, tibia, foot, or ankle. Sensation is grossly intact to the dorsal and plantar surface of the right foot. Diagnostic Studies: X-rays of the right hip demonstrate a displaced right femoral neck fracture. Assessment And Plan: Ms. Del Rio is an 79-year-old female with a right displaced femoral neck fract ure. I discussed with the patient at length her diagnosis as well as treatment options. Given the d isplaced nature noted on lateral views, I recommend right hip hemiarthroplasty. Risks and benefits a ssociated with the procedure were discussed with the patient at length and she expressed understandin g. We will proceed with right hip hemiarthroplasty tomorrow at lunch if she is cleared by Cardiology . CV/MODL Voice ID: [id number] Report ID: [id number]
[2024-08-17] MEDS: FAMOTIDINE 20 MG TAB PO SCH (21:13)
[2024-08-18] MEDS ORDERED: LIDOCAINE 2% MPF 5 ML VIAL ONE ×2 (10:46→11:59)
[2024-08-18] MEDS ORDERED: FENTANYL CITR 100 MCG/2 ML ONE ×2 (10:46→11:59)
[2024-08-18] MEDS ORDERED: ONDANSETRON 4 MG/2 ML VIAL ONE (10:46)
[2024-08-18] MEDS ORDERED: propofoL 200 MG/20 ML VIAL IV ONE (10:46)
[2024-08-18] MEDS: DEXMEDETOMIDINE HCL 200 MCG/2 ML VIAL ONE (10:58)
[2024-08-18] MEDS: MAGNESIUM SULFATE 1 gm IVPB 1 GM/100 ML BAG IV ONE (10:59)
--- NOTE | 2024-08-18 11:22 | P.CNS ---
Date of Consult: 08/18/24 Chief Complaint: Right hip fracture/femur fracture History of Present Illness: Patient with PMH of atrial fibrillation, HTN, presented with ground level fall and fracture, denies chest pain, no palpitations, no syncope. Allergies No Known Allergies Allergy (Verified 08/09/24 08:54) Home medications list reviewed: Yes Home Medications: Calcium/Vits D3/C/K2/Minerals [Bone Essentials Capsule] 1 cap PO DAILY 08/09/24 Carboxymethylcellulose Sodium [Refresh Tears] 2 drops EACH EYE DAILY 08/09/24 Cholecalciferol (Vitamin D3) [Vitamin D3] 25 mcg PO DAILY 08/09/24 Famotidine [Pepcid AC] 20 mg PO DAILYPRN PRN 08/09/24 Ginseng/Astragalus 2 cap PO TID 08/09/24 Losartan Potassium 25 mg PO DAILY 08/09/24 Magnesium Oxide [Magnesium] 250 mg PO DAILY 08/09/24 Turmeric/Turmeric Root Extract [Turmeric 500 mg Capsule] 1 each PO DAILY 08/09/24 Amiodarone HCl [Cordarone*] 200 mg PO BID #60 tab 08/13/24 Apixaban [Eliquis] 5 mg PO DAILY 08/17/24 - Past Medical/Surgical History Diabetic: No -: Hypertension -: Atrial fibrillation on chronic anticoagulation -: Ventral hernia -: Hysterectomy - Family History Father Family History: Reviewed- Non-Contributory - Social History Smoking Status: Never smoker Alcohol use: No CD- Drugs: No Caffeine use: Yes Place of Residence: Home Review of Systems 10-point ROS is otherwise unremarkable Physical Examination Temp Pulse Resp BP Pulse Ox 97.7 F 72 16 148/75 H 99 08/18/24 08:00 08/18/24 08:00 08/18/24 08:00 08/18/24 08:00 08/18/24 08:00 General: Alert, In no apparent distress HEENT: Atraumatic, PERRLA, Mucous membr. moist/pink, EOMI, Sclerae nonicteric Neck: Supple, 2+ carotid pulse no bruit, No LAD, Without JVD or thyroid abnormality Respiratory: Clear to auscultation bilaterally, Normal air movement Cardiovascular: Regular rate/rhythm, Normal S1 S2 Gastrointestinal: Normal bowel sounds, No tenderness Musculoskeletal: No tenderness Integumentary: No rashes Neurological: Normal gait, Normal speech, Normal tone, Normal affect Lymphatics: No axilla or inguinal lymphadenopathy - Problems (1) Preoperative clearance Current Visit: Yes Status: Acute Plan: Patient had an echo and stress test recently at our office that was normal Patient is cleared as intermediate cardiac risk for surgery No further cardiac work up needed. (2) Atrial fibrillation Current Visit: No Status: Acute Plan: Continue Amiodarone 200 mg po BID Eliquis is on hold for surgery, please resume FRANSISCO after surgery. No bridging needed. (3) HTN (hypertension) Current Visit: No Status: Acute Plan: continue to monitor, resume home medications after surgery.
[2024-08-18] MEDS: NA CHLORIDE 0.9% 1,000 ML ONE (11:40)
[2024-08-18] MEDS: TRANEXAMIC ACID 1,000 MG/10 ML VIAL IV ONE (11:58)
[2024-08-18] MEDS ORDERED: EPHEDRINE SULF 50 MG/ML VIAL ONE (11:59)
[2024-08-18] MEDS ORDERED: KETAMINE HCL IN 0.9 % NACL 50 MG/5 ML SYRINGE IV ONE (11:59)
[2024-08-18] MEDS: CEFAZOLIN SODIUM 1 GM/VIAL ONE (12:01)
[2024-08-18] MEDS ORDERED: dexAMETHasone 4 MG/ML VIAL ONE (12:38)
--- NOTE | 2024-08-18 13:00 | EKG ---
Test Date: 2024-08-16 Test Time: 14:15:19 Purchase Price Analyst: TANIA MEASUREMENT RESULTS: Intervals: Rate: 73 WI: 150 QRSD: 78 QT: 408 QTc: 449 [place]: P: 60 WI: 150 QRS: 38 T: 89 INTERPRETIVE STATEMENTS: Normal sinus rhythm Anterior infarct, age undetermined Abnormal ECG Compared to ECG 08/12/2024 14:53:15 Myocardial infarct finding now present Sinus bradycardia no longer present Atrial premature complex(es) no longer present Electronically Signed On 08-18-24 12:58:32 BRINE ROOM LABORER by Raphael Blount
--- NOTE | 2024-08-18 13:12 | EKG ---
Test Date: 2024-08-12 Test Time: 14:53:15 Pediatric Social Worker: LIZZIE MEASUREMENT RESULTS: Intervals: Rate: 59 MT: 150 QRSD: 84 QT: 466 QTc: 461 [place]: P: 63 MT: 150 QRS: 61 T: 59 INTERPRETIVE STATEMENTS: Sinus bradycardia with premature atrial complexes Otherwise normal ECG Compared to ECG 08/09/2024 10:07:56 Atrial premature complex(es) now present Atrial fibrillation no longer present ST (T wave) deviation no longer present Electronically Signed On 08-18-24 13:03:37 PRODUCT SAFETY ADMINISTRATOR by Raphael Blount
--- NOTE | 2024-08-18 13:41 | P.BOP ---
Preoperative diagnosis: Right femoral neck fracture Postoperative diagnosis: Same Primary procedure: Right hip hemiarthroplasty Front End Application Developer: NONE,NONE Estimated blood loss: 50 cc Specimen: Right femoral head Findings: See dictation Anesthesia: General Complications: None Drain(s): Urinary catheter Implants: [employer] Harris size 9 echo fracture stem, 47 mm shell with -3 mm head Fluids & blood products: Per anesthesia record Transferred to: Recovery Room Condition: Good
[2024-08-18] MEDS ORDERED: TRAMADOL HCL 50 MG TAB PO PRN (14:22)
[2024-08-18] MEDS ORDERED: ACETAMINOPHEN 325 MG TABLET PO PRN (14:22)
[2024-08-18] MEDS: HYDROMORPHONE HCL 1 MG/ML INJ ONE (14:30)
[2024-08-18 15:03] LABS: Hematocrit 33.5 % (36.0-45.0); Hemoglobin 11.3 g/dL (12.0-15.0)
[2024-08-18] MEDS: CEFAZOLIN 1 GM in NA CHLORIDE 0.9% 50 ML IVPB SCH (16:45)
--- NOTE | 2024-08-18 18:00 | RAD REPORT ---
EXAMINATION: XR Hip Right 2 View CLINICAL INDICATION: Female, 79 years old. [facility] s/p right hip meche TECHNIQUE: 2 view radiograph of the right hip were obtained. COMPARISON: No prior exam. FINDINGS: No evidence of fracture or dislocation. Postsurgical changes of right hip arthroplasty. Com ponents in satisfactory alignment. Surrounding soft tissue gas and skin deng. No focal suspicious osseous lesion. IMPRESSION: Expected postoperative changes of right hip arthroplasty as above.
[2024-08-18] MEDS: ENSURE SURGERY 237 ML CAN PO SCH (20:11)
[2024-08-18] MEDS: HYDROCODONE/APAP 7.5/325 MG TAB PO PRN (21:44)
[2024-08-19 06:20] LABS: Absolute Lymphocytes (CBC) 0.9 K/uL (0.7-4.9); Absolute Neutrophil 5.8 K/uL (1.8-8.0); Basophils % 0.2 % (0-1.3); Eosinophils % 0.5 % (0-4.4); Hematocrit 31.3 % (36.0-45.0); Hemoglobin 10.7 g/dL (12.0-15.0); Lymphocytes % 11.6 % (15.3-44.8); MCH 30.5 pg (27.0-35.0); MCHC 34.3 g/dL (32.0-36.0); MCV 88.9 fL (80-100); MPV 8.5 fL (7.6-11.3); Monocytes % 12.7 % (3.3-12.3); Platelets 208 thou/uL (152-406); RBC Red Blood Cell Count 3.52 M/uL (3.86-4.86); Red Cell Distribution Width 13.7 % (12.1-15.2)
[2024-08-19 06:59] LABS: Anion Gap 6.3 mEq/L (5.0-15.0); Potassium 4.3 mEq/L (3.5-5.1); Troponin High Sensitivity 18.3 pg/mL (<58.9)
[2024-08-19] MEDS ORDERED: FAMOTIDINE 20 MG TAB PO PRN (10:40)
[2024-08-19] MEDS: AMIODARONE HCL 200 MG TAB PO SCH (11:16)
--- NOTE | 2024-08-19 12:53 | P.PN ---
Subjective Date of Service: 08/19/24 Chief Complaint: Right hip fracture/femur fracture Subjective: Improving, Working w/ PT Pain controlled Physical Examination - Vital Signs Temperature: 98.0 F Blood Pressure: 127/59 Pulse: 72 Respirations: 16 Pulse Ox (%): 97 - Physical Exam General: Alert, In no apparent distress Musculoskeletal: Other (Right lower extremity: Dressing clean dry and intact.; No significant swelling; positive firing of EHL/FHL/gastrocsoleus c omplex/tibialis anterior; neuro vascular intact distally) - Studies Medications List Reviewed: Yes Assessment And Plan - Plan Cassy is an 79-year-old female status post right hip hemiarthroplasty postoperative day #1 -Acute expected postoperative blood loss anemia; continue to monitor H&H -PT to mobilize; weightbearing as tolerated right lower extremity with posterior hip precautions -Lovenox for DVT prophylaxis -Await PT evaluation for recommendations on placement
[2024-08-19] MEDS: DOCUSATE NA 100 MG CAP PO PRN (17:52)
[2024-08-19] MEDS: APIXABAN 5 MG TABLET PO SCH (21:06)
[2024-08-20 04:29] VITALS: O2SAT 93
[2024-08-20 06:09] LABS: Absolute Eosinophils 0.1 K/uL (0-0.5); Absolute Lymphocytes (CBC) 1.1 K/uL (0.7-4.9); Absolute Monocytes 0.8 K/uL (0.1-1.3); Absolute Neutrophil 4.5 K/uL (1.8-8.0); Basophils % 0.5 % (0-1.3); Eosinophils % 1.2 % (0-4.4); Hematocrit 30.7 % (36.0-45.0); Hemoglobin 10.5 g/dL (12.0-15.0); Lymphocytes % 16.8 % (15.3-44.8); MCH 30.4 pg (27.0-35.0); MCHC 34.2 g/dL (32.0-36.0); MCV 88.9 fL (80-100); MPV 8.4 fL (7.6-11.3); Monocytes % 12.5 % (3.3-12.3); Platelets 198 thou/uL (152-406); RBC Red Blood Cell Count 3.46 M/uL (3.86-4.86); Red Cell Distribution Width 13.5 % (12.1-15.2)
[2024-08-20 06:30] LABS: Anion Gap 7.8 mEq/L (5.0-15.0); Potassium 3.8 mEq/L (3.5-5.1)
[2024-08-20] MEDS: LOSARTAN POTASSIUM 50 MG TABLET PO SCH (09:18)
[2024-08-20 10:49] VITALS: BP 141/71; TEMP 98.8
--- NOTE | 2024-08-25 11:42 | P.OP ---
Preoperative diagnosis: Right femoral neck fracture Postoperative diagnosis: Same Primary procedure: Right hip hemiarthroplasty Anesthesia: General Estimated blood loss: 50 cc Specimen: Right femoral head Findings: See dictation Operative Technique: Indication For Procedure: Cassy is an 79-year-old female who presented to the ER after sustaining a fall onto her right side with subsequent pain, inability to bear weight. The patient had x-rays that demonstrated displaced femoral neck fracture. I discussed with the patient and her family risks and benefits associated with operative and nonoperative measures. They expressed understanding and elected to proceed with operative treatment. Description Of Procedure: After informed consent was obtained, the patient was identified in the preoperative holding area. The right lower extremity was marked. The patient was then brought back to the operating room, transferred to the operating table in supine fashion, placed under general endotracheal anesthesia. The patient was then placed in the right lateral decubitus position with her extremities well padded. The right lower extremity was then prepped and draped in usual sterile fashion. A time-out was initiated. Correct patient and procedure confirmed and identified. The patient did receive preoperative prophylactic antibiotics. Approximately, a 12 cm curvilinear incision was made centered over the greater trochanter. Dissection was then taken to the tensor fascia chente, which was split in line with the incision. Charnley retractors were placed to retract the tensor fascia chente. Blunt dissection was taken down. The external rotators were tagged with Ethibond and released from the greater trochanter. T-shaped capsulotomy was performed and the femoral head was removed using a corkscrew. Hematoma was evacuated. Head was measured to approximately 47 size. A trial head was then placed and there was good overall fit within the acetabulum. Next, attention was taken to the proximal femur where a cookie cutter was placed followed by canal finder and lateralizer. The femoral canal was then reamed to a size 13 mm reamer in 1 mm increments and then broached with size 7 mm broach to size 11 mm broach. Once in final position, a - 3 mm head and neck was placed with a trial 47 mm shell. The hip was reduced. There was good overall leg length and stability. The wounds were then irrigated thoroughly with normal saline. A cement plug was then placed within the proximal femur followed by placement of cement within the femoral canal using a cement gun. The final 9 mm Echo Fracture stem was placed and held into position until the cement was hardened. Again, the hip was trialed with a 47 mm shell and a - 3 mm head and neck. Hip was reduced and there was good overall stability of the hip and leg length. The trial head and neck were then removed and a 47 mm bipolar shell with a standard head and neck was then placed and tapped into position using a mallet with the Ramos taper. The hip was then reduced. It was mobilized with good overall range of motion. There was no instability noted. The wound was then irrigated thoroughly with normal saline. The capsule was approximated using Ethibond. The short external rotators were tied back down to the greater trochanter using a suture passer over bone tunnel. The tensor fascia chente was approximated using 0 Vicryl. The fascia was approximated using 0 Vicryl and subcutaneous tissues were approximated using 2-0 Vicryl. Skin was approximated using deng. Sterile dressings were applied. The patient was awakened and placed in abduction pillow and transferred to PACU in stable condition. Postoperative Plan: The patient will be weightbearing as tolerated. Posterior hip precautions will be set up. The patient will follow up in 2 weeks for staple removal. Complications: None Drain(s): Urinary catheter Implants: Biomet Harris 9 echo fracture stem, 47 acetabular shell, -3 head Fluids & blood products: Per anesthesia record Transferred to: Recovery Room Condition: Good
== END 2024-08-20 13:18 | DRG 522 ==
LOC: ER 13:33 → 2ND 18:01 → ERHOLD 18:29 → 4TH 08-17 13:53
PROVIDERS: ADMIT Hospitalist; ATTEND Hospitalist
PROC: 0SRR0J9 Replacement of Right Hip Joint, Femoral Surface with Synthetic Substitute, Cemented, Open Approach (ICD-10-PCS; principal; 2024-08-18 11:30)
PROC: 0T9B70Z Drainage of Bladder with Drainage Device, Via Natural or Artificial Opening (ICD-10-PCS; 2024-08-20)
DX: S72.001A Fracture of unspecified part of neck of right femur, initial encounter for closed fracture (principal); I50.42 Chronic combined systolic (congestive) and diastolic (congestive) heart failure; I11.0 Hypertensive heart disease with heart failure; I48.91 Unspecified atrial fibrillation; R79.89 Other specified abnormal findings of blood chemistry; Z79.01 Long term (current) use of anticoagulants; Z79.899 Other long term (current) drug therapy; Z90.710 Acquired absence of both cervix and uterus
CPT/HCPCS: 36415; 51702; 71045; 72170; 80048; 80053; 80076; 81001; 83735; 83880; 84484; 85014; 85018; 85025; 85610; 85730; 86850; 86900; 86901; 88305; 88311; 93005; 94010; 96374; 96375; 97116; 97161; 97530; 99285; J0690; J1100; J1171; J1940; J2003; J2270; J2405; J2704; J3010; J3475; J7030

== ENCOUNTER 2024-08-20 10:14 | Inpatient (IN) | payer OTHER, BC ==
[2024-08-20 13:38] VITALS: BMI 22.8
[2024-08-20 17:03] LABS: Specific Gravity 1.012 (1.005-1.030); Urine Bacteria None Seen /HPF (<20); Urine Bilirubin NEGATIVE (Negative); Urine Blood Negative (Negative); Urine Clarity Turbid (Clear); Urine Color Light-Yellow (Yellow); Urine Crystals Unidentified Few /HPF (None Seen); Urine Culture Reflex Order NOT NEEDED; Urine Glucose NEGATIVE (Negative); Urine Ketones NEGATIVE (Negative); Urine Micro Reflex YN NO BILL MICROSCOPIC; Urine Mucus Slight /HPF (None Seen); Urine Nitrite NEGATIVE (Negative); Urine Protein NEGATIVE (Negative); Urine RBC <5 /HPF (None Seen); Urine Urobilinogen Normal (Normal); Urine WBC <5 /HPF (<5); Urine WBC Clump Rare /HPF (None Seen); Urine Yeast (Budding) Trace /HPF (None Seen); Urine pH 6.5 (5.0-7.0)
[2024-08-20] MEDS: APIXABAN 5 MG TABLET PO SCH (20:09)
[2024-08-20] MEDS: DOCUSATE NA/SENNA CONC 1 TAB PO SCH (20:09)
[2024-08-20] MEDS: AMIODARONE HCL 200 MG TAB PO SCH (20:09)
[2024-08-20] MEDS: MELATONIN 3 MG TABLET PO PRN (20:10)
[2024-08-20] MEDS: MAGNESIUM OXIDE 400 MG TAB PO SCH (20:10)
--- NOTE | 2024-08-21 04:29 | HP ---
Date of Admission: 08/20/2024 Time Of Service: 8:10 p.m. Chief Complaint: "I fell and broke my right hip." History Of Present Illness: Ms. Del Rio is an 79-year-old patient with atrial fibrillation, hyperte nsion. She is on chronic anticoagulation, who is living at home with her and 2 dogs and was independent without using an assistive device when she fell at home. She was apparently standing by her on stairs when she fell backwards onto her, pushing her down, and she fell off the right side, injuring the hip. She had significant pain in [facility]. Imaging identified a right femoral neck fracture. Her chest x-ray did show pulmonary edema with small bilateral effusions. Manas reyes was seen previously a week before by for an umbilical hernia. However, surgery was halted. Manas reyes had atrial fibrillation, on anticoagulation. She was managed medically and is to follow up with ledy subsequently. As the patient now has the fracture, her Eliquis for anticoagulation was held for 4 8 hours, then she had right hip hemiarthroplasty and postoperatively is now weightbearing as tolerate d to the right lower extremity. Medically, she is managed with beta-saira for atrial fibrillation with blood pressure control. She has GI prophylaxis and DVT prophylaxis. Currently with therapy, manas reyes is on a moderate assistance level for bed mobility, contact guard assist, and minimum assistance fo r covering 20 feet with a rolling walker and for performing activities of daily living, min to mod as sist. Also pain is needed to be controlled as she does therapy. Given the patient's acute postsurgical state and hip fracture with pain and requirement for managing her medical condition, she is determined to be an appropriate candidate for inpatient rehabilitation to help her reduce risk of rehospitalization and to return to her prior level of functioning. Past Medical History: As noted, hypertension, atrial fibrillation on chronic anticoagulation, ventra l hernia, and hysterectomy. Allergies: NO KNOWN DRUG ALLERGIES. Medications: Tylenol 500 mg every 6 hours as needed, amiodarone 200 mg twice daily, Eliquis 5 mg twi ce daily, now restarted. She is on Os-Aureliano plus D1 tablets daily, Pepcid 20 mg daily, [place] 7.5/325 e very 4 hours as needed, losartan potassium 25 mg daily, magnesium oxide 400 mg twice daily, melatonin 3 mg at bedtime Senokot-S 2 twice daily and Ultram 50 mg every 6 hours as needed. Laboratory Studies: White blood cell count 6.5, hemoglobin 10.5, hematocrit 30.7, platelets 198. Po tassium 3.8, glucose 117, BUN 14, creatinine 0.53, calcium 8.5, magnesium 2.0, albumin 3.2. Sodium 1 39. Hip x-ray on 08/18/2023 at 1422 showed expected postoperative changes of the right hip arthropla sty. No evidence of fracture dislocation. Postsurgical changes noted. Surrounding soft tissue gas and deng noted. No suspicious osseous finding seen. Family History: Noncontributory. Social History: No alcohol, tobacco, or IV drug use and patient lives in single family home with [facility]. Review of Systems: She does note currently no pain while lying in bed, but pain can get up to 6 or 7/10 with transfers a nd mobilization. She is just sitting on the bed for a bit, but is now beginning to mobilize. Otherw ise, no fevers, chills, nausea, or vomiting. No significant myalgias or arthralgias. Current Level Of Functioning: Currently, grooming is at setup assistance, bathing moderate assistanc e, upper body dressing is of moderate assistance level, lower body dressing maximal assistance, toile ting moderate assistance. Wheelchair transfer and toilet transfer, moderate assistance. She ambulat ed 20 feet with moderate assistance using a rolling walker. Physical Examination: Vital Signs: Blood pressure 153/68, pulse 77, respiratory rate 14, temperature 98.1, oxygen saturati on 97%. General: Ms. Del Rio is lying comfortably in bed. She is in no significant distress. HEENT: She is normocephalic, atraumatic. Sclerae anicteric. Oropharynx pink, moist. Neck: Supple. Chest: Clear. Extremities: She does have good hemostasis in the right hip surgical site and no significant clubbin g, cyanosis, or edema noted. Neuro: She has no focal deficits in terms of cranial, motor, coordination, sensory examination. Rehab And Medical Assessment And Plan: Ms. Del Rio is an 79-year-old patient admitted to the rehabi litation unit with impairment category 07, fracture of lower extremity. Impairment group code is 08. 11, unilateral hip fracture. Etiologic diagnosis, right subcapital femoral neck fracture. Her comor bid conditions, hypertension, atrial fibrillation, on anticoagulation. In addition, she has a ventra l hernia, hysterectomy, decreased mobility, decreased physical functioning. Plan: She will have physical, occupational therapy 3 hours a day, 5 of 7 days. We will continue Cindi dee 5 mg twice daily for stroke and DVT risk reduction, Cordarone 200 mg twice daily along with losa rtan 25 mg daily for blood pressure control. She has tramadol, Tylenol, and [place] for pain managemen t, Senokot for constipation, melatonin for insomnia, magnesium oxide for muscle spasms, Pepcid for GE reflux. Note also for constipation, she has Dulcolax suppository as needed. Comorbidities That Are Impacting Rehabilitation: She has atrial fibrillation, on anticoagulation and had recent surgery, so she will be carefully watched for any areas of oozing or bleeding and she nee ds to have strict fall precautions as impacting a noncompressible sites could result in significantly worsening clinical condition especially if the head is impacted, therefore gait belt with all ambula tion, rolling walker, and wheelchair following. Rehab Specific Plan: Ms. Del Rio will have again physical, occupational therapy for 3 hours a day, 5 of 7 days to improve her ability to transfer from bed to chair to a wheelchair to mobilize those wi th a rolling walker and wheelchair to get on and off toilet, and in and out of the shower, and dress upper and lower body. She will work with occupational therapy to improve her ability to perform acti vities of daily living safely. Ms. Del Rio has a good understanding of the process of admission to the inpatient rehabilitation [facility] and how she will benefit from physical, occupational, and if need be speech therapy. She will have 24 hours a day, 7 days a week skilled rehabilitation nursing, daily physician evaluation and managem ent, and certified social workers in health care evaluation and management for discharge planning, home equipment, and contin uing with therapy and follow up with physicians. If need be, the hospitalist service will be contact ed for help. Barriers To Discharge: Currently, she is weightbearing as tolerated with the right lower extremity. However, she is still at significant risk of falling and depending on how well she does, she may req uire usp, but her plan currently would be to go home. She will continue therapy, ___ at home successfully. Length Of Stay: About 14 days. Disposition: Expected to be home to continue therapy via Home Health. Prognosis: Good. Code Status: Full code. Rehab Specific Goals: 1.Become independent with upper and lower body dressing, and donning and doffing footwear. 2.Independently mobilized a wheelchair 250 feet. 3.Independently ambulate with a rolling walker 250 feet. 4.Independently go up and down 10 steps with bilateral handrails. 5.Independently perform cognitive functioning. The above goals were reviewed with Ms. Del Rio and she is in agreement. By signing this document, I acknowledge I personally performed a full physical examination on Ms. Beck larson no later than 24 hours after her admission to the inpatient rehabilitation unit and determined that she is able to tolerate the above course of treatment at an intensive level for reasonable perio d of time. A detailed individualized plan of care for her will be completed by hospital day 4 based on the preadmission screen, history and physical, and therapy evaluations. [place] Voice ID: [id number]
[2024-08-21 05:53] LABS: Absolute Eosinophils 0.1 K/uL (0-0.5); Absolute Lymphocytes (CBC) 0.9 K/uL (0.7-4.9); Absolute Monocytes 0.8 K/uL (0.1-1.3); Basophils % 0.4 % (0-1.3); Eosinophils % 1.7 % (0-4.4); Lymphocytes % 16.1 % (15.3-44.8); MCH 30.3 pg (27.0-35.0); MCHC 34.5 g/dL (32.0-36.0); MCV 87.8 fL (80-100); MPV 8.9 fL (7.6-11.3); Monocytes % 14.2 % (3.3-12.3); Neutrophils % 67.6 % (41.7-73.7); Platelets 209 thou/uL (152-406); RBC Red Blood Cell Count 3.64 M/uL (3.86-4.86); Red Cell Distribution Width 13.2 % (12.1-15.2)
[2024-08-21 06:14] LABS: Albumin 2.7 g/dL (3.4-5.0); Anion Gap 8.7 mEq/L (5.0-15.0); Magnesium 2.1 mg/dL (1.6-2.4); Potassium 3.7 mEq/L (3.5-5.1); Prealbumin 9.1 mg/dL (20-40)
[2024-08-21] MEDS: BISACODYL 10 MG RECTAL SUPP PR PRN (06:18)
--- NOTE | 2024-08-21 07:05 | RAD REPORT ---
EXAM: AP view(s) of the abdomen Abdomen 1 View (KUB) HISTORY: constipation COMPARISON: CT 06/29/2024 FINDINGS: Nonobstructive bowel gas pattern.. Large colonic stool burden with redundant colon. Probable distend ed bladder. No suspicious calcifications are seen. No acute osseous abnormality. Right hip arthroplasty. Other: n/a IMPRESSION: Nonobstructive bowel gas pattern. Large colonic stool burden consistent with constipation .
[2024-08-21] MEDS ORDERED: DOCUSATE NA 100 MG CAP PO SCH (08:00)
[2024-08-21] MEDS: CALCIUM CARB 500MG/VIT D 200 IU TAB PO SCH (08:19)
[2024-08-21] MEDS: LOSARTAN POTASSIUM 50 MG TABLET PO SCH (08:19)
[2024-08-21] MEDS: FAMOTIDINE 20 MG TAB PO SCH (08:19)
[2024-08-21] MEDS: CRANBERRY FRUIT EXTRACT 425 MG CAPSULE PO SCH (08:19)
[2024-08-21] MEDS: ACETAMINOPHEN 500 MG TAB PO PRN (08:20)
[2024-08-21] MEDS: LIDOCAINE 4% PATCH TOP SCH (12:28)
[2024-08-21] MEDS: ENSURE ENLIVE 237 ML CAN PO SCH (19:21)
[2024-08-22] MEDS: TRAMADOL HCL 50 MG TAB PO PRN (08:58)
--- NOTE | 2024-08-23 00:07 | PN ---
Date of Progress Note: 08/22/2024 Time Of Service: 1:40 p.m. Subjective: Ms. Del Rio is in her room, multiple family members are there. Could answer simple que stions about how she is doing and recovering and she actually is doing excellent. She is mobilizing well. She denies any significant pain in her right femoral neck fracture and pains just briefly and is well managed. Eating and bowel movements are well managed. Sleep is well managed as well. Review of Systems: No significant fevers, chills, nausea, vomiting, myalgias, arthralgias, rash. No other complaints. Physical Examination: Vital Signs: Blood pressure is 130/65, pulse 70, respiratory rate 16, temperature 97.9, oxygen satu ration 96%. Weight 137 pounds, height 5 feet 5 inches, BMI 22.8. General: Ms. Del Rio is sitting in a chair beside bed. HEENT: She is normocephalic, atraumatic. Sclerae anicteric. Oropharynx moist. Neck: Supple. Chest: Clear. Heart: Regular. Extremities: Show no significant clubbing, cyanosis, or edema. She has very little if any postsurgi magdy swelling in the right lower extremity where she has right femoral neck fracture and has had surgi magdy repair. Laboratory Studies: White blood cell count 5.9, hemoglobin 11.0, platelets 209. Sodium 140, potassi um 3.7, chloride 108, carbon dioxide 27, BUN 13, creatinine 0.5, glucose 114, calcium 8.8. Magnesium 2.1. Albumin 2.7, prealbumin 9.1. Urinalysis, turbid clarity, 250 esterase, trace budding yeast. Otherwise unremarkable. X-ray/imaging: A KUB x-ray was done yesterday. This study did show nonobstructive bowel gas pattern . A large colonic stool burden consistent with constipation and it is noted that the patient did hav e that relieved with bowel movement today. Progress Made With Physical, Occupational, And Speech Therapy: Today with physical therapy she compl ained of nro-ax-odspn transfers with contact guard to minimum assistance. She was able to go up and down 15 steps with contact guard assistance and bilateral handrails. She ambulated 150 feet with a r olling walker with standby assistance and wheelchair, mobilized 50 feet with standby assistance. Wit h occupational therapy, supine to edge of bed and transfer minimum assistance, toileting with minimum assistance, sink side oral brushings with setup assistance, shower with minimum assistance. Rehab And Medical Assessment And Plan: Ms. Del Rio is an 79-year-old patient admitted to rehabilita tion unit with a right femoral neck fracture, status post surgical repair. She has persisting, altho ugh improving, decreased mobility, decreased physical functioning. Hypertension, muscle spasms, whic h improved. Constipation is improved and mild malnutrition. Plan: She will continue with physical and occupational therapy 3 hours a day, 5 of 7 days. Continue tramadol for pain management; Senokot for constipation; Ensure Enlive for malnutrition; melatonin fo r insomnia; magnesium oxide for muscle spasm; Cozaar for hypertension, controlled; lidocaine patch ap plied to the right hip area. She has Eliquis 5 mg daily for stroke and DVT risk reduction, amiodaron e for heart rate and blood pressure control, Cameron and regular Tylenol for pain management. Comorbid Impacting Rehabilitation: Her comorbidities are stably managed and do not negatively impact her rehabilitation. LB/MODL Voice ID: [id number] Report ID: [id number]
--- NOTE | 2024-08-23 21:42 | PN ---
Date of Progress Note: 08/23/2024 Time Of Service: 1:25 p.m. Subjective: Ms. Del Rio is ambulating around the unit. She is able to stand and talk, not lose her balance. She does have right femoral neck fracture and is able to maintain her weightbearing status , which is weightbearing as tolerated. She has no new complaints. Daughter is beside her as she is ambulating. Objective: No fevers, chills, nausea, vomiting. No significant myalgias, arthralgias. Pain is agai n very well managed. Physical Examination: Vital Signs: Blood pressure 131/62, pulse 63, respiratory rate 16, temperature 97.8, oxygen saturati on 96%. General: Again, Ms. Del Rio is standing in the hallway as she is ambulating around 250 feet. HEENT: She is normocephalic, atraumatic. Sclerae anicteric. Oropharynx pink, moist. Neck: Supple. Chest: Clear. Heart: Regular. Extremities: No significant edema. Cyanosis in the right lower extremity where she has her fracture . Laboratory Studies: No new laboratory studies. X-ray/imaging: No new x-rays or imaging. Medications: Medications have been reviewed and are unchanged. Progress Made With Physical And Occupational Therapy: Today, with physical therapy, she was able to complete wheelchair mobilization 250 feet independently. She was able to do 15 steps. She ambulated in the parallel bars with contact guard assistance. She did ambulate with a rolling walker 500 feet with supervision. With occupational therapy, standby assistance for toilet hygiene due to impaired standing balance that mostly was related to her pain. She does not have grab bars at home and will h ave to use a chair with arms as she gets to the bathroom. Assessment And Plan: Ms. Del Rio is an 79-year-old patient with right femoral neck fracture, who is making great progress with physical and occupational therapy. The right hip fracture surgical site does not pose much pain. She still has, however, some decreased mobility, decreased physical functio ewelina, hypertension, gastroesophageal reflux, insomnia, mild malnutrition, constipation, and of course moderate pain. She will continue all medications as noted. Deep venous thrombosis prophylaxis is o n board with Eliquis 5 mg twice daily. LB/MODL Voice ID: [id number] Report ID: [id number]
[2024-08-24 06:02] LABS: Absolute Eosinophils 0.2 K/uL (0-0.5); Absolute Lymphocytes (CBC) 1.3 K/uL (0.7-4.9); Absolute Monocytes 0.6 K/uL (0.1-1.3); Absolute Neutrophil 3.8 K/uL (1.8-8.0); Basophils % 0.6 % (0-1.3); Eosinophils % 3.4 % (0-4.4); Hematocrit 30.8 % (36.0-45.0); Hemoglobin 10.3 g/dL (12.0-15.0); Lymphocytes % 21.8 % (15.3-44.8); MCH 29.8 pg (27.0-35.0); MCHC 33.4 g/dL (32.0-36.0); MCV 89.2 fL (80-100); MPV 8.4 fL (7.6-11.3); Monocytes % 10.7 % (3.3-12.3); Neutrophils % 63.5 % (41.7-73.7); Platelets 306 thou/uL (152-406); RBC Red Blood Cell Count 3.46 M/uL (3.86-4.86); Red Cell Distribution Width 13.5 % (12.1-15.2)
[2024-08-24 06:23] LABS: Albumin 2.5 g/dL (3.4-5.0); Anion Gap 6.7 mEq/L (5.0-15.0); Magnesium 2.2 mg/dL (1.6-2.4); Potassium 4.7 mEq/L (3.5-5.1); Prealbumin 10.5 mg/dL (20-40)
[2024-08-24] MEDS: HYDROCODONE/APAP 7.5/325 MG TAB PO PRN (14:48)
--- NOTE | 2024-08-24 22:13 | PN ---
Date of Progress Note: 08/24/2024 Time Of Service: 1:25 p.m. Subjective: Ms. Del Rio is sitting in a chair beside bed. She is very happy with her therapy. Kaushik y little pain noted in the right hip. She is ambulating well, going up and down several steps, and h as no new complaints. Objective: No fevers, chills, nausea, vomiting. No myalgias, arthralgias. Very mild subtle pain in the right hip. Otherwise, no swelling in the legs and no other complaints. Physical Examination: Vital Signs: Blood pressure 114/65, pulse 63, respiratory rate 16, temperature 98.1, oxygen saturati on 97%. HEENT: Ms. Del Rio is normocephalic, atraumatic. Sclerae anicteric. Oropharynx is pink and moist. Neck: Supple. Chest: Clear. Heart: Regular. Extremities: She does not have any significant edema in the right lower extremity. She has good hem ostasis at the right hip surgical site. Laboratory Studies: White blood cell count 5.9, hemoglobin 10.3, platelets 306. Sodium 141, potassi um 4.7, chloride 109, carbon dioxide 30, BUN 23, creatinine 0.7, glucose 101, calcium 9.4, magnesium 2.2, albumin 2.5, prealbumin 10.5. X-ray/imaging: No new x-rays or imaging. Medications: Her medications have been reviewed and are unchanged. Progress Made With Physical And Occupational Therapy: Today with physical therapy, she was able to p erform gait training covering 250 feet with standby assistance to independence using a rolling walker . Emphasis was placed on upright posturing and improving great stability. Cnu-ei-jjtvt transfers do ne with contact guard to minimum assistance. She also ambulated another 250 feet twice with supervis ion to modified independence and wheelchair mobilization was 50 feet independently. Assessment: Ms. Del Rio is an 79-year-old patient in the rehabilitation unit with right femoral nec k fracture, status post surgical repair. She is making excellent progress with her physical and occu pational therapy. She has comorbid conditions including GE reflux, mild malnutrition, constipation, hypertension, decreased mobility, decreased physical functioning. Plan: She will continue with her DVT prophylaxis, Eliquis 2.5 mg twice daily. Continue with physica l and occupational therapy, 3 hours a day, 5 of 7 days. She will continue amiodarone for blood press ure control along with Cozaar, tramadol for pain, Senokot for constipation, Ensure for malnutrition, melatonin for insomnia, magnesium oxide for muscle spasms, lidocaine patch added as well for pain. C ontinue Os-Aureliano plus D for her osteoporosis, Kinta available as well. DELPHINE/LUKASZ Voice ID: [id number] Report ID: [id number]
--- NOTE | 2024-08-25 13:54 | P.RH.PN ---
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 Goal: Mobility, Transfers, Self Care Vital Signs: Last Vital Signs Temp 98.2 F 08/25/24 07:31 Pulse 70 08/25/24 07:31 Resp 16 08/25/24 07:31 BP 145/66 H 08/25/24 07:31 Pulse Ox 98 08/25/24 07:31 Laboratory: Laboratory Last Values WBC 5.90 thou/uL (4.3-10.9) 08/24/24 05:34 RBC 3.46 M/uL (3.86-4.86) L 08/24/24 05:34 Hgb 10.3 g/dL (12.0-15.0) L 08/24/24 05:34 Hct 30.8 % (36.0-45.0) L 08/24/24 05:34 MCV 89.2 fL (80-100) 08/24/24 05:34 MCH 29.8 pg (27.0-35.0) 08/24/24 05:34 MCHC 33.4 g/dL (32.0-36.0) 08/24/24 05:34 RDW 13.5 % (12.1-15.2) 08/24/24 05:34 Plt Count 306 thou/uL (152-406) 08/24/24 05:34 MPV 8.4 fL (7.6-11.3) 08/24/24 05:34 Neutrophils % 63.5 % (41.7-73.7) 08/24/24 05:34 Lymphocytes % 21.8 % (15.3-44.8) 08/24/24 05:34 Monocytes % 10.7 % (3.3-12.3) 08/24/24 05:34 Eosinophils % 3.4 % (0-4.4) 08/24/24 05:34 Basophils % 0.6 % (0-1.3) 08/24/24 05:34 Absolute Neutrophils 3.8 K/uL (1.8-8.0) 08/24/24 05:34 Absolute Lymphocytes 1.3 K/uL (0.7-4.9) 08/24/24 05:34 Absolute Monocytes 0.6 K/uL (0.1-1.3) 08/24/24 05:34 Absolute Eosinophils 0.2 K/uL (0-0.5) 08/24/24 05:34 Absolute Basophils 0.0 K/uL (0-0.5) 08/24/24 05:34 Sodium 141 mEq/L (136-145) 08/24/24 05:34 Potassium 4.7 mEq/L (3.5-5.1) 08/24/24 05:34 Chloride 109 mEq/L (98-107) H 08/24/24 05:34 Carbon Dioxide 30 mEq/L (21-32) 08/24/24 05:34 Anion Gap 6.7 mEq/L (5.0-15.0) 08/24/24 05:34 BUN 23 mg/dL (7-18) H 08/24/24 05:34 Creatinine 0.70 mg/dL (0.55-1.02) 08/24/24 05:34 Est GFR (CKD-EPI) 87 ml/min (=/>90) L 08/24/24 05:34 Glucose 101 mg/dL (74-106) 08/24/24 05:34 Calcium 9.4 mg/dL (8.5-10.1) 08/24/24 05:34 Magnesium 2.2 mg/dL (1.6-2.4) 08/24/24 05:34 Albumin 2.5 g/dL (3.4-5.0) L 08/24/24 05:34 Prealbumin 10.5 mg/dL (20-40) L 08/24/24 05:34 Urine Color Light-yellow (Yellow) 08/20/24 15:45 Urine Clarity Turbid (Clear) H 08/20/24 15:45 Urine pH 6.5 (5.0-7.0) 08/20/24 15:45 Ur Specific [place] 1.012 (1.005-1.030) 08/20/24 15:45 Glucose (UA)(Auto) Negative (Negative) 08/20/24 15:45 Urine Ketones Negative (Negative) 08/20/24 15:45 Urine Blood Negative (Negative) 08/20/24 15:45 Urine Nitrite Negative (Negative) 08/20/24 15:45 Urine Bilirubin Negative (Negative) 08/20/24 15:45 Urine Urobilinogen Normal (Normal) 08/20/24 15:45 Ur Leukocyte Esterase 250 Darin/uL (Negative) H 08/20/24 15:45 Urine RBC <5 /HPF (None Seen) 08/20/24 15:45 Urine WBC <5 /HPF (<5) 08/20/24 15:45 Urine WBC Clumps Rare /HPF (None Seen) 08/20/24 15:45 Ur Squamous Epith Cells 10-20 /HPF (None Seen) 08/20/24 15:45 U Non-Squamous Epi Cells <5 /HPF (None Seen) 08/20/24 15:45 Unidentified Crystals Few /HPF (None Seen) 08/20/24 15:45 Urine Bacteria None seen /HPF (<20) 08/20/24 15:45 Hyaline Casts 0-5 /LPF (None Seen) 08/20/24 15:45 Urine Mucus Slight /HPF (None Seen) 08/20/24 15:45 Urine Yeast (Budding) Trace /HPF (None Seen) H 08/20/24 15:45 Urine Culture Reflexed Not needed 08/20/24 15:45 Urine Total Protein Negative (Negative) 08/20/24 15:45 Weight: 137 lb Wound Present: No Closed Surgical Incision Present: Yes Negative Pressure Wound Therapy Present: No Physician Update: Doing very well. Met all LTG and STG, RW 500', 15 steps, car transfers all independently. Met 5/5 STG and 5/6 LTG. Not yet met bathing goals. Keeping her hip precautions. Doing well with pain, controlled with Dickinson 7.5/325 mg. Comment: HAS BLOOD BLISTER ON LEFT BUTTOCK Summary: Patient's care plan and mcc goals have been reviewed and revised as necessary. Please see the Rehabilitation Signature page for all necessary signatures.
[2024-08-28 06:27] VITALS: BP 149/74; TEMP 97.6
== END 2024-08-28 09:40 | disposition home or self-care (01) | DRG 560 ==
LOC: 5TH 13:09
PROVIDERS: ADMIT Psychiatry & Neurology Neurology with Special Qualifications in Child Neurology; ATTEND Psychiatry & Neurology Neurology with Special Qualifications in Child Neurology
DX: Z47.1 Aftercare following joint replacement surgery (principal); E44.1 Mild protein-calorie malnutrition; I48.91 Unspecified atrial fibrillation; Z96.641 Presence of right artificial hip joint; I10 Essential (primary) hypertension; K43.9 Ventral hernia without obstruction or gangrene; M62.838 Other muscle spasm; K59.00 Constipation, unspecified; Z68.22 Body mass index [BMI] 22.0-22.9, adult; K21.9 Gastro-esophageal reflux disease without esophagitis; G47.00 Insomnia, unspecified; Z79.01 Long term (current) use of anticoagulants
CPT/HCPCS: 36415; 74018; 80048; 81001; 82040; 83735; 84134; 85025; 87086; 87088; 97110; 97112; 97116; 97163; 97165; 97530; 97542; J2003

== ENCOUNTER 2024-11-04 07:52 | Day surgery (SDC) | payer OTHER, BC ==
[2024-11-02 14:30] LABS: Anion Gap 6.8 mEq/L (5.0-15.0); Potassium 3.8 mEq/L (3.5-5.1)
[2024-11-02 14:37] LABS: Absolute Eosinophils 0.1 K/uL (0-0.5); Absolute Lymphocytes (CBC) 0.8 K/uL (0.7-4.9); Absolute Monocytes 0.4 K/uL (0.1-1.3); Absolute Neutrophil 3.7 K/uL (1.8-8.0); Basophils % 0.8 % (0-1.3); Eosinophils % 2.5 % (0-4.4); Hematocrit 36.4 % (36.0-45.0); Hemoglobin 12.4 g/dL (12.0-15.0); Lymphocytes % 16.5 % (15.3-44.8); MCH 29.3 pg (27.0-35.0); MCHC 34.1 g/dL (32.0-36.0); MCV 85.9 fL (80-100); MPV 8.7 fL (7.6-11.3); Monocytes % 8.3 % (3.3-12.3); Neutrophils % 71.9 % (41.7-73.7); Platelets 247 thou/uL (152-406); RBC Red Blood Cell Count 4.23 M/uL (3.86-4.86); Red Cell Distribution Width 14.8 % (12.1-15.2)
[2024-11-02 14:38] LABS: PT Prothrombin Time 13.1 SECONDS (10-13.0); PTT, Activated Partial Thromb 36.1 SECONDS (27.2-37.4); Protime INR 1.16
[2024-11-04] MEDS ORDERED: ROCURONIUM 50 MG/5 ML VIAL IV ONE (09:18)
[2024-11-04] MEDS ORDERED: FENTANYL CITR 100 MCG/2 ML ONE ×2 (09:18→10:45)
[2024-11-04] MEDS ORDERED: propofoL 200 MG/20 ML VIAL IV ONE (09:18)
[2024-11-04] MEDS ORDERED: LIDOCAINE 1% MPF 5 ML VIAL ONE (09:18)
[2024-11-04] MEDS ORDERED: ONDANSETRON 4 MG/2 ML VIAL ONE (09:18)
[2024-11-04] MEDS: CEFAZOLIN SODIUM 2 GM/VIAL ONE (09:30)
[2024-11-04] MEDS ORDERED: EPHEDRINE SULF 50 MG/ML VIAL ONE (09:45)
[2024-11-04] MEDS: LIDOCAINE HCL/EPINEPHRINE 20 ML MDV ONE (09:50)
[2024-11-04] MEDS: Ringers Lactate 1,000 ML IV ONE (10:47)
--- NOTE | 2024-11-04 11:29 | P.OP ---
Preoperative diagnosis: Ventral Incisional Hernia Postoperative diagnosis: Ventral Incisional Hernia Primary procedure: Laparoscopic Ventral Incisional Hernia Repair with mesh Anesthesia: GETA + Local Estimated blood loss: <5cc Specimen: None Findings: ~ 20cm x 10 cm ventral incisional hernia Complications: None Implants: Bard Ventralite ST [id number], Sorbafix x 105 Transferred to: Recovery Room Condition: Good
[2024-11-04] MEDS: HYDROMORPHONE HCL 1 MG/ML INJ ONE ×2 (12:11→12:26)
[2024-11-04] MEDS: ONDANSETRON 4 MG/2 ML VIAL ONE (12:43)
--- NOTE | 2024-11-04 12:45 | OP ---
Date of Procedure: 11/04/2024 Surgeon: Tyler Ferrell MD, Preoperative Diagnosis: Ventral incisional hernias. Postoperative Diagnosis: Ventral incisional hernias. Procedure Performed: Laparoscopic ventral hernia repair with mesh. Anesthesia: General endotracheal plus local 1% lidocaine with epinephrine. Estimated Blood Loss: 5 cc. Specimen: None. Findings: Approximately 20 cm x 10 cm ventral incisional hernias with entrapped small bowel and omen dedra. Complications: None. Implants: Bard Ventralight ST mesh with Echo Positioning System 25 x 20 cm utilized and SorbaFix Abs orbable Fixation tacks x105 screws. Disposition: The patient was transferred to recovery room in good condition. Procedure In Detail: After informed consent was obtained, patient was brought to the operating room, prepped and draped in the usual sterile fashion. After adequate anesthesia was achieved, I anesthet ized the left upper quadrant and subcutaneous tissue. A 5 mm 0-degree optical trocar was introduced into the abdomen without incident or complication. Insufflation was obtained to 15 mmHg, at this regina e. There was no injury to vital structures upon entry into the abdomen. Additional trocar was place d in the left mid abdomen. This was similarly anesthetized and sharply incised and a 12 mm trocar wa s placed under direct vision without incident or complication. The patient had a slight left tilt du ring the majority of the procedure. During this time, I used LigaSure device to take down the conten ts from the ventral incisional hernias, which were evident in the midline using combination of blunt dissection and LigaSure device to remove and return the abdominal contents in normal anatomic positio n. After the hernias were skeletonized and visualized properly, I brought in the Endo Stitch with 0 V-Loc suture and closed the hernia defect imbricating the hernia sac with multiple V-Loc sutures with good approximation of the hernia back to the midline. After this was completed, I brought in the 25 x [address] mesh with Echo Positioning System, deployed it at the central portion of the defect using a separate stab incision and a Juarez suture passer grasped, elevated, and I inflated the balloon deployment system at this point. I then used SorbaFix fixation tacks to fix the mesh to the anterior abdominal wall with good approximation of tissues. At this point, I removed the balloon deployment system, found to be intact on back table. I then proceeded to secure the mes h to the anterior abdominal wall with a double crown type orientation, placing a total 105 screws to the anterior abdominal wall with good approximation of the tissues at this point and good apposition of the mesh to the abdominal wall. At this point, the patient was positioned slightly away, slightly more and I proceeded to close the 12 mm trocar site using a Eh-Margarito suture passer with #1 Vi cryl in interrupted fashion, good approximation of the tissue. The abdomen was desufflated under dir ect visualization without incident or complication. Remaining trocars were removed. All skin edges were then copiously irrigated and closed with a 4-0 Monocryl in a running fashion. Dermabond placed over top. The patient tolerated the procedure well without incident or complication and transferred to PACU in good condition. All counts were correct at the end of the case. J CARLOS/LUKASZ Voice ID: [id number] Report ID: [id number]
[2024-11-04] MEDS: MORPHINE 4 MG/ML SYR ONE (12:52)
[2024-11-04] MEDS ORDERED: HYDROCODONE/APAP 5/325 MG TAB ONE (13:55)
[2024-11-04] MEDS: HYDROCODONE/APAP 5/325 MG TAB PO ONE (13:59)
[2024-11-04 14:30] VITALS: TEMP 98.1; O2SAT 97
[2024-11-04 16:52] VITALS: BP 165/61
== END 2024-11-04 16:11 | disposition home or self-care (01) ==
LOC: OR 07:52
PROVIDERS: ATTEND Surgery
PROC: 0WUF4JZ Supplement Abdominal Wall with Synthetic Substitute, Percutaneous Endoscopic Approach (ICD-10-PCS; principal; 2024-11-04 09:45)
DX: K43.0 Incisional hernia with obstruction, without gangrene (principal); K21.9 Gastro-esophageal reflux disease without esophagitis; Z86.73 Personal history of transient ischemic attack (TIA), and cerebral infarction without residual deficits
CPT/HCPCS: 49595; 85025; 80048; 36415; 85610; 85730; J2704; J2003; J3010 ×2; J1171 ×2; J2405 ×2; J7120

== ENCOUNTER 2025-05-01 16:41 | Inpatient (IN) | payer OTHER, BC ==
[2025-05-01 17:17] LABS: Absolute Lymphocytes (CBC) 1.2 K/uL (0.7-4.9); Hematocrit 38.4 % (36.0-45.0); Hemoglobin 13.1 g/dL (12.0-15.0); MCH 30.8 pg (27.0-35.0); MCHC 34.2 g/dL (32.0-36.0); MCV 90.2 fL (80-100); MPV 8.9 fL (7.6-11.3); Nucleated RBC Absolute Count 0.0 (0-0); Nucleated Red Blood Cells % 0.0 % (0-0); RBC Red Blood Cell Count 4.25 M/uL (3.86-4.86); White Blood Count 9.00 thou/uL (4.3-10.9)
[2025-05-01] MEDS ORDERED: MORPHINE 2 MG/ML SYR ONE (17:27)
[2025-05-01] MEDS ORDERED: ONDANSETRON 4 MG/2 ML VIAL ONE (17:27)
[2025-05-01] MEDS ORDERED: NA CHLORIDE 0.9% 1,000 ML ONE (17:28)
[2025-05-01 17:35] LABS: ALT/SGPT 74.0 U/L (13-56); AST/SGOT 38.0 U/L (15-37); Albumin 4.3 g/dL (3.4-5.0); Albumin/Globulin Ratio 1.3 (1.1-1.8); Alkaline Phosphatase 84.0 U/L (45-117); Anion Gap 7.9 mEq/L (5.0-15.0); BUN Blood Urea Nitrogen 17.0 mg/dL (7-18); Globulin 3.3 g/dL (2.3-3.5); Glucose Level 117.0 mg/dL (74-106); Lipase 32.0 U/L (13-75); Potassium 3.9 mEq/L (3.5-5.1)
--- NOTE | 2025-05-01 18:24 | RAD REPORT ---
EXAMINATION: Abdomen Pelvis W Contrast CLINICAL INDICATION: Female, 79 years old.ABD PAIN TECHNIQUE: CT abdomen and pelvis was performed, after the administration of IV contrast, as per depar tment protocol. Axial, sagittal and coronal reconstructions were obtained. One or more of the following dose reduction techniques were used: Automated exposure control, adjustment of the mA and/o r kV according to patient size, and/or iterative reconstruction. Unless otherwise specified, incidental findings do not require dedicated imaging follow-up. [id number]. COMPARISON: 12/30/2023 FINDINGS: LOWER CHEST: No acute process identified. No significant pericardial effusion. Mild circumferential t hickening of the distal esophagus which could reflect esophagitis. Cardiomegaly UPPER GI: No significant abnormality. LIVER: Liver hyperdensity may be from iron deposition or amiodarone use. GALLBLADDER/BILE DUCTS: No biliary ductal dilatation.? PANCREAS: No mass, ductal dilation, or kathryn-pancreatic fluid. SPLEEN: Unremarkable. ADRENALS: No adrenal masses. KIDNEYS AND URETERS: No hydronephrosis. No suspicious renal mass. No renal calculi. No ureteral calcu li. ABDOMINAL AORTA AND OTHER VESSELS: Normal caliber aorta and IVC. PERITONEUM: No abnormal free fluid. No free air. LYMPH NODES: No pathologic lymphadenopathy. ABDOMINAL WALL: Unremarkable SMALL BOWEL/COLON: Small bowel obstruction with abrupt transition point in the central abdomen. Sourc e of obstruction may be from adhesions. The distal small bowel is decompressed. There is a small bowel anastomosis in the left hemiabdomen that may also be acting as a chronic stricture. URINARY BLADDER: Underdistended but grossly unremarkable. REPRODUCTIVE ORGANS: Uterus surgically absent. No adnexal abnormality. MUSCULOSKELETAL: No acute or suspicious osseous abnormality. Right hip arthroplasty. ADDITIONAL FINDINGS: None. IMPRESSION: Findings likely reflecting high-grade mechanical small bowel obstruction with abrupt transition point in the central abdomen. This may be secondary to adhesive changes. There is a separate small bowel anastomosis that may be contributing to a chronic stricture/partial small bowel obstruction.
--- NOTE | 2025-05-01 18:35 | EDPHYS ---
Physician Documentation [facility] Name: Cassy Del Rio Age: 79 yrs Sex: Female : 1945 Arrival Date: 05/01/2025 Time: 16:41 Bed IW1 Private MD: ED Physician HPI: 05/01 17:00 This 79 yrs old Female presents to ER via Ambulatory with complaints of Abdominal Pain, kb Nausea. 17:00 Pt is an 79 year old female who presents for diffuse abd pain and nausea that started kb at 1200 today. States she had a normal BM this morning. Denies vomiting or diarrhea. States she has had blockages in the past and this feels similar. Historical: - Allergies: 16:49 No Known Allergies; me1 - PMHx: 16:49 Atrial fibrillation; Hypertensive disorder; bowel obstruction (Unknown); me1 - PSHx: 16:49 Repair of inguinal hernia; bowel resection; Total abdominal hysterectomy; right hip me1 repair; - Immunization history:: Adult Immunizations up to date. - Infectious Disease History:: Denies. - Social history:: Smoking status: Patient denies any tobacco usage or history of. ROS: 16:59 Constitutional: As per HPI kb Exam: 16:59 Constitutional: This is a well developed, well nourished patient who is awake, alert, kb and in no acute distress. Head/Face: Normocephalic, atraumatic. ENT: Moist Mucous membranes Cardiovascular: Regular rate Respiratory: Respirations even and unlabored. No increased work of breathing. Talking in full sentences Skin: Warm, dry with normal turgor. Normal color. MS/ Extremity: Pulses equal, no cyanosis. Neurovascular intact. Full, normal range of motion. Neuro: Awake and alert, GCS 15, oriented to person, place, time, and situation. 16:59 Abdomen/GI: Inspection: distension, Palpation: soft, in all quadrants, moderate abdominal tenderness, in the right upper quadrant and left lower quadrant, Vital Signs: 16:48 BP 216 / 83; Pulse 53; Resp 16; Temp 98.2; Pulse Ox 100% ; Weight 58.51 kg; Height 5 me1 ft. 4 in. ; Pain 8/10; 18:15 BP 167 / 86; Pulse 57; Resp 20; Pulse Ox 100% on R/A; kj2 19:42 BP 167 / 66; Pulse 58; Resp 20; Temp 98.2; Pulse Ox 93% on R/A; kj2 16:48 Body Mass Index 22.14 (58.51 kg, 162.56 cm) me1 16:48 Pain Scale: Adult me1 MDM: 16:44 Medical Screening Exam initiated kb 17:00 Data reviewed: vital signs, nurses notes. kb 18:32 Differential diagnosis: bowel obstruction, non-specific abd pain, pancreatitis. kb Consideration of Admission/Observation Patient was admitted/placed on observation. Escalation of care including admission/observation considered. Management of patient was discussed with the following: Hospitalist: Dr Duvall accepts pt for admission. Youth Coordinator: Dr Ferrell accepts pt for consult. Historians other than the Patient: Spouse/Significant Other: spouse. Counseling: I had a detailed discussion with the patient and/or guardian regarding the historical points, exam findings, and any diagnostic results supporting the discharge/admit diagnosis, lab results, radiology results, the need for further work-up and treatment in the hospital. 05/01 16:49 Order name: CBC with Diff; Complete Time: 17:22 kb 05/01 16:49 Order name: CMP; Complete Time: 17:36 kb 05/01 16:49 Order name: Lipase; Complete Time: 17:36 kb 05/01 18:47 Order name: CBC with Automated Diff EDMS 05/01 18:47 Order name: CBC with Automated Diff EDMS 05/01 18:47 Order name: Comprehensive Metabolic Panel EDMS 05/01 18:48 Order name: Comprehensive Metabolic Panel EDMS 05/01 18:48 Order name: Magnesium EDMS 05/01 18:48 Order name: Magnesium EDMS 05/01 18:48 Order name: Phosphorus EDMS 05/01 18:48 Order name: Phosphorus EDMS 05/01 16:49 Order name: CT Abd/Pelvis - IV Contrast Only; Complete Time: 18:28 kb 05/01 18:47 Order name: CONS Physician Consult EDMS 05/01 16:49 Order name: IV Saline Lock; Complete Time: 17:04 kb 05/01 16:49 Order name: Labs collected and sent; Complete Time: 17:04 kb Administered Medications: 17:41 Drug: Ondansetron IVP 4 mg IVP once; over 2 minutes Route: IVP; Site: right antecubital;kj2 18:55 Follow up: Response: No adverse reaction kj2 17:41 Drug: NS 0.9% IV 1000 ml IV at 1 bolus Per protocol; to be given as a bolus over 60 kj2 minutes Route: IV; Rate: 1 bolus; Site: right antecubital; 21:14 Follow up: IV Status: Completed infusion kj2 21:14 Follow up: IV Status: Completed infusion; IV Intake: 1000ml kj2 17:42 Drug: morphine IVP or IV 2 mg IVP once over 4 mins Route: IVP; Infused Over: 4 mins; kj2 Site: right antecubital; 18:55 Follow up: Response: No adverse reaction kj2 19:20 Drug: hydrALAZINE IVP 10 mg IVP once Route: IVP; Site: right antecubital; kj2 19:40 Follow up: Response: No adverse reaction kj2 Disposition Summary: 05/01/25 18:35 Hospitalization Ordered Notes: Hospitalization Status: Inpatient Admission kb Provider: Colin Duvall [facility] kb Condition: Stable kb Problem: new kb Symptoms: are unchanged kb Bed/Room Type: Standard Room Assignment: 414(05/01/25 18:52) kmf Diagnosis - Small Bowel Obstruction kb Forms: - Medication Reconciliation Form kb - SBAR form kb - Leadership Thank You Letter kb Signatures: Dispatcher [employer] EDEufemia Uribe, JORDAN-C PLANT [employer]OTE[employer] SUPERVISOR-Damonb Denisse Heck, RN RN me1 Cami Brewer kmf Sandra Zaman, SELENE RN kj2 Corrections: (The following items were deleted from the chart) 16:49 16:49 Abdomen Pelvis W Con+CT.RAD.BRZ ordered. EDKS EDMS 18:52 18:35 kb kmf
--- NOTE | 2025-05-01 18:35 | ER ---
Nurse's Notes [facility] Name: Cassy Del Rio Age: 79 yrs Sex: Female : 1945 Arrival Date: 05/01/2025 Time: 16:41 Bed IW1 Private MD: Diagnosis: Small Bowel Obstruction Presentation: 05/01 16:48 Chief complaint: Patient states: abdominal pain that started about noon today with me1 nausea. Pain level 8/10. Abdominal distention noted. Coronavirus screen: Vaccine status: Patient reports being unvaccinated. Ebola Screen: No symptoms or risks identified at this time. Initial Sepsis Screen: Does the patient meet any 2 criteria? No. Patient's initial sepsis screen is negative. Does the patient have a suspected source of infection? No. Patient's initial sepsis screen is negative. Risk Assessment: Do you want to hurt yourself or someone else? Patient reports no desire to harm self or others. Onset of symptoms was May 01, 2025 at 12:00. 16:48 Method Of Arrival: Ambulatory pa1 16:48 Acuity: SARAN 3 me1 Historical: - Allergies: 16:49 No Known Allergies; me1 - PMHx: 16:49 Atrial fibrillation; Hypertensive disorder; bowel obstruction (Unknown); me1 - PSHx: 16:49 Repair of inguinal hernia; bowel resection; Total abdominal hysterectomy; right hip me1 repair; - Immunization history:: Adult Immunizations up to date. - Infectious Disease History:: Denies. - Social history:: Smoking status: Patient denies any tobacco usage or history of. Screenin:00 [facility] ED Fall Risk Assessment (Adult) History of falling in the last 3 months, kj2 including since admission No falls in past 3 months (0 pts) Confusion or Disorientation No (0 pts) Intoxicated or Sedated No (0 pts) Impaired Gait No (0 pts) Mobility Assist Device Used No (0 pt) Altered Elimination No (0 pt) Score/Fall Risk Level 0 - 2 = Low Risk Maintained a safe environment, Hourly rounding (assess needs \T\ fall precautionary measures) done. Abuse screen: Denies threats or abuse. Denies injuries from another. Nutritional screening: No deficits noted. Tuberculosis screening: No symptoms or risk factors identified. Assessment: 18:00 General: Appears in no apparent distress. Behavior is cooperative. Pain: Complains of kj2 pain in left lower quadrant and right upper quadrant Pain currently is 7 out of 10 on a pain scale. Neuro: Level of Consciousness is awake, alert, obeys commands, Oriented to person, place, time, situation. Cardiovascular: Patient's skin is warm and dry. Respiratory: Airway is patent Respiratory effort is unlabored. GI: Bowel sounds present X 4 quads. : No signs and/or symptoms were reported regarding the genitourinary system. 18:52 Reassessment: Patient appears in no apparent distress at this time. Patient and/or kj2 family updated on plan of care and expected duration. Pain level reassessed. Patient is alert, oriented x 3, equal unlabored respirations, skin warm/dry/pink. Vital Signs: 16:48 BP 216 / 83; Pulse 53; Resp 16; Temp 98.2; Pulse Ox 100% ; Weight 58.51 kg; Height 5 me1 ft. 4 in. ; Pain 8/10; 18:15 BP 167 / 86; Pulse 57; Resp 20; Pulse Ox 100% on R/A; kj2 19:42 BP 167 / 66; Pulse 58; Resp 20; Temp 98.2; Pulse Ox 93% on R/A; kj2 16:48 Body Mass Index 22.14 (58.51 kg, 162.56 cm) me1 16:48 Pain Scale: Adult pa1 ED Course: 16:43 Patient arrived in ED. mr 16:44 Connor Eufemia, JORDAN-Pablito is [facility]. kb 16:44 Raffaele Espino MD is Attending Physician. kb 16:48 Arm band placed on Patient placed in an exam room. me1 16:49 Triage completed. me1 16:59 Radiology exam delayed due to lab results not completed at this time. (BUN/Creatinine) ls3 IV insertion attempt and/or patient not having appropriate IV at this time. 17:02 Sandra Zaman, SELENE is Primary Nurse. kj2 17:04 Initial lab(s) drawn, by laborer hide house, sent to lab. Inserted saline lock: 20 gauge in right ts3 antecubital area, using aseptic technique. Blood collected. Flushed with 10 mL NS. 18:04 CT Abd/Pelvis - IV Contrast Only In Process Unspecified. EDMS 18:35 Colin Duvall MD is Hospitalizing Provider. kb 18:52 Assisted to bathroom. kj2 18:54 Patient has correct armband on for positive identification. Provided Education on: call kj2 light. 20:27 No provider procedures requiring assistance completed. Patient admitted, IV remains in vc1 place. 05/02 00:58 PHCP role handed off by Eufemia Ryan FNP-C vc1 00:58 Attending Physician role handed off by Raffaele Espino MD vc1 00:58 Primary Nurse role handed off by Sandra Zaman, SELENE vc1 00:59 Sandra Zaman, RN is Primary Nurse. kj2 Administered Medications: 05/01 17:41 Drug: Ondansetron IVP 4 mg IVP once; over 2 minutes Route: IVP; Site: right antecubital;kj2 18:55 Follow up: Response: No adverse reaction kj2 17:41 Drug: NS 0.9% IV 1000 ml IV at 1 bolus Per protocol; to be given as a bolus over 60 kj2 minutes Route: IV; Rate: 1 bolus; Site: right antecubital; 21:14 Follow up: IV Status: Completed infusion kj2 21:14 Follow up: IV Status: Completed infusion; IV Intake: 1000ml kj2 17:42 Drug: morphine IVP or IV 2 mg IVP once over 4 mins Route: IVP; Infused Over: 4 mins; kj2 Site: right antecubital; 18:55 Follow up: Response: No adverse reaction kj2 19:20 Drug: hydrALAZINE IVP 10 mg IVP once Route: IVP; Site: right antecubital; kj2 19:40 Follow up: Response: No adverse reaction kj2 Medication: 20:28 VIS not applicable for this client. vc1 Intake: 21:14 IV: 1000ml; Total: 1000ml. kj2 Outcome: 18:35 Decision to Hospitalize by Provider. kb 20:27 Admitted to Tele accompanied by tech, via stretcher, room 414, vc1 20:27 Condition: stable 20:27 Instructed on the need for admit, 20:28 Patient left the ED. vc1 05/02 01:02 Patient left the ED. kj2 Signatures: Dispatcher [employer] EDMS Eufemia Ryan FNP-C OUTSEWER-Ckb Klarissa Perez, Reg Reg mr Deedee Simmons ls3 Yovana Huang RN RN vc1 Denisse Heck RN RN me1 Sandra Zaman, SELENE RN kj2 Natalie Cisneros ts3 Corrections: (The following items were deleted from the chart) 05/01 16:51 16:48 Pulse 53bpm; Resp 16bpm; Pulse Ox 100%; Temp 98.2F; 58.51 kg; Height 5 ft. 4 in.; me1 BMI: 22.1; Pain 03/05, Adult; me1
--- NOTE | 2025-05-01 18:39 | P.HP ---
Certification for Inpatient Patient admitted to: Inpatient With expected LOS: >2 Midnights Practitioner: I am a practitioner with admitting privileges, knowledge of patient current condition, hospital course, and medical plan of care. Services: Services provided to patient in accordance with Admission requirements found in Title 42 Section 412.3 of the Code of Federal Regulations Patient History Date of Service: 05/01/25 Reason for admission: Abdominal Pain History of Present Illness: 79-year-old female with past medical history of hypertension, Atrial fibrillation; Hypertensive disorder; bowel obstruction , previous hysterectomy, Repair of inguinal hernia; bowel resection; Total abdominal hysterectomy; right hip repair who presented with abdominal pain, right upper quadrant, onset earlier this morning upon waking up. Pain is associated with recurrent bouts of vomiting and nausea. Patient denies any associated diarrhea or constipation. She has not had any bowel movement since the last 1 day. She denies any fever or chills. CT of the abdomen and pelvics shows evidence of multiple loops of bowel consistent with mechanical small bowel obstruction. Patient was assessed in ER and was admitted for further management of SBO. Allergies tramadol Allergy (Verified 05/01/25 21:36) Itching/Hives/Rash Home medications list reviewed: Yes Home Medications: Calcium/Vits D3/C/K2/Minerals [Bone Essentials Capsule] 1 cap PO DAILY 08/09/24 Cholecalciferol (Vitamin D3) [Vitamin D3] 25 mcg PO DAILY 08/09/24 Famotidine [Pepcid AC] 20 mg PO DAILYPRN PRN 08/09/24 Losartan Potassium 25 mg PO DAILY 08/09/24 Magnesium Oxide [Magnesium] 250 mg PO DAILY 08/09/24 Apixaban [Eliquis] 5 mg PO BID 08/20/24 Docusate [Colace Cap*] 200 mg PO DAILY PRN cap 08/20/24 Melatonin [Melatonin*] 3 mg PO BEDTIME PRN PRN 08/28/24 Amiodarone HCl [Cordarone*] 200 mg PO DAILY 11/02/24 Eitan/Poly/Dexa Opth [Maxitrol Ophth Susp] 5 ml EACH EYE BID 11/02/24 - Past Medical/Surgical History Diabetic: No Past Medical History: Reviewed- Non-Contributory -: Hypertension -: Atrial fibrillation on chronic anticoagulation -: Ventral hernia Past Surgical History: Reviewed- Non-Contributory -: Hysterectomy - Social History Smoking Status: Never smoker Alcohol use: No CD- Drugs: No Caffeine use: Yes Review of Systems 10-point ROS is otherwise unremarkable Physical Examination - Vital Signs Temperature: 98.2 F Blood Pressure: 216/82 Pulse: 53 Respirations: 18 Pulse Ox (%): 94 - Physical Exam General: Alert, In no apparent distress, Oriented x3 HEENT: Atraumatic, Normocephalic Neck: Supple Respiratory: Clear to auscultation bilaterally, Normal air movement Cardiovascular: Regular rate/rhythm, Normal S1 S2 Capillary refill: <2 Seconds Gastrointestinal: Soft and benign, W/out hepatosplenomegaly, Distended, Tender ness Musculoskeletal: No clubbing Integumentary: No rashes, No breakdown Neurological: Other (Alert, Awake, non focal) Lymphatics: No axilla or inguinal lymphadenopathy - Studies Laboratory Data (last 24 hrs) 05/01/25 05/01/25 17:00 17:00 WBC 9.00 Hgb 13.1 Hct 38.4 Plt Count 229 Sodium 140 Potassium 3.9 BUN 17 Creatinine 0.98 Glucose 117 H Total Bilirubin 0.5 AST 38 H ALT 74 H Alkaline Phosphatase 84 Lipase 32 Assessment and Plan - Plan Mechanical small bowel obstruction Atrial-fibrillation Accelerated Hypertension Mechanical small bowel obstruction CT abdomen Moderate SBO. Dr. Ferrell consulted Atrial-fibrillation Rate Controlled Echo (01/03): Unremarkable, shows normal EF and mild pulmonary hypertension. Accelerated Hypertension Hydralazine PRN Continue home meds GI/DVT prophylaxis Adv Directive : Full Code Discharge Plan: Home Plan to discharge in: 48 Hours - Advance Directives Does patient have a Living Will: No Does patient have a Durable POA for Healthcare: No - Code Status/Comfort Care Code Status: Full Code Time Spent Managing Pts Care (In Minutes): 48
[2025-05-01] MEDS ORDERED: ACETAMINOPHEN 325 MG TABLET PO PRN (18:42)
[2025-05-01] MEDS ORDERED: HYDRALAZINE HCL 20 MG/ML VIAL ONE (19:38)
[2025-05-01] MEDS: D5 0.45 NS 1,000 ML IV SCH (22:23)
[2025-05-01] MEDS: ONDANSETRON 4 MG/2 ML VIAL IV PRN (22:29)
[2025-05-01] MEDS: HYDROCODONE/APAP 5/325 MG TAB PO PRN (22:29)
[2025-05-02] MEDS: MORPHINE 2 MG/ML SYR IV PRN (02:30)
[2025-05-02 05:27] LABS: Absolute Lymphocytes (CBC) 0.5 K/uL (0.7-4.9); Hematocrit 33.7 % (36.0-45.0); Hemoglobin 11.4 g/dL (12.0-15.0); MCH 30.4 pg (27.0-35.0); MCHC 33.8 g/dL (32.0-36.0); MCV 90.0 fL (80-100); MPV 9.6 fL (7.6-11.3); Nucleated RBC Absolute Count 0.0 (0-0); Nucleated Red Blood Cells % 0.0 % (0-0); RBC Red Blood Cell Count 3.74 M/uL (3.86-4.86); White Blood Count 13.50 thou/uL (4.3-10.9)
[2025-05-02 05:47] LABS: ALT/SGPT 57.0 U/L (13-56); AST/SGOT 27.0 U/L (15-37); Albumin 3.3 g/dL (3.4-5.0); Albumin/Globulin Ratio 1.2 (1.1-1.8); Alkaline Phosphatase 62.0 U/L (45-117); Anion Gap 8.6 mEq/L (5.0-15.0); BUN Blood Urea Nitrogen 18.0 mg/dL (7-18); Globulin 2.7 g/dL (2.3-3.5); Glucose Level 149.0 mg/dL (74-106); Magnesium 2.4 mg/dL (1.6-2.4); Potassium 3.6 mEq/L (3.5-5.1)
[2025-05-02 06:06] LABS: Blood Morphology Comment NOT SEEN (NOT SEEN); Differential Total Cells Count 100; Segmented Neutrophils 64 % (40-80)
--- NOTE | 2025-05-02 06:07 | P.PN ---
Subjective Date of Service: 05/02/25 Chief Complaint: Abdominal Pain Subjective: No new changes Review of Systems 10-point ROS is otherwise unremarkable Physical Examination - Vital Signs Temperature: 98.7 F Blood Pressure: 103/49 Pulse: 60 Respirations: 17 Pulse Ox (%): 90 - Physical Exam General: Alert, In no apparent distress, Oriented x3 HEENT: Atraumatic, Normocephalic Neck: Supple Respiratory: Clear to auscultation bilaterally, Normal air movement Cardiovascular: Regular rate/rhythm, Normal S1 S2 Capillary refill: <2 Seconds Gastrointestinal: Soft and benign, W/out hepatosplenomegaly Musculoskeletal: No clubbing, No swelling Integumentary: No rashes, No breakdown Neurological: Normal gait, Normal speech, Normal strength at 5/5 x4 extr, Cranial nerves 3-12 intact Lymphatics: No axilla or inguinal lymphadenopathy - Studies Laboratory Data (last 24 hrs) 05/01/25 05/01/25 17:00 17:00 WBC 9.00 Hgb 13.1 Hct 38.4 Plt Count 229 Sodium 140 Potassium 3.9 BUN 17 Creatinine 0.98 Glucose 117 H Total Bilirubin 0.5 AST 38 H ALT 74 H Alkaline Phosphatase 84 Lipase 32 Assessment And Plan - Plan Mechanical small bowel obstruction Atrial-fibrillation Accelerated Hypertension Mechanical small bowel obstruction CT abdomen Moderate SBO. Dr. Ferrell consulted Atrial-fibrillation Rate Controlled Echo (01/03): Unremarkable, shows normal EF and mild pulmonary hypertension. Accelerated Hypertension Hydralazine PRN Continue home meds GI/DVT prophylaxis Adv Directive : Full Code Discharge Plan: Home Plan to discharge in: 48 Hours - Code Status/Comfort Care Code Status: Full Code Time Spent Managing PTS Care (In Minutes): 48
[2025-05-02] MEDS: ENOXAPARIN 40 MG/0.4 ML SQ SCH (09:00)
[2025-05-02] MEDS ORDERED: MORPHINE 4 MG/ML SYR IV PRN (15:15)
--- NOTE | 2025-05-02 15:17 | RAD REPORT ---
EXAM: AP view(s) of the abdomen Abdomen 1 View (KUB) HISTORY: Placement of NGT/OGT. Post Insertion. COMPARISON: Yesterday head CT FINDINGS: Dilated small bowel and stomach again noted.. No suspicious calcifications are seen. Increased opacities at the right lung base. Other: The enteric tube tip terminates in the distal esophagus. IMPRESSION: 1. Enteric tube tip terminates at the distal esophagus and should be advanced by approximately 8 to 1 0 cm. 2. Increased airspace disease at the right lung base. This could reflect atelectasis and/or aspiratio n. 3. Dilated small bowel again noted consistent with small bowel obstruction.
--- NOTE | 2025-05-02 15:43 | RAD REPORT ---
EXAMINATION: Chest Single View VIEWS: One view CLINICAL INDICATION: Female, 79 years old. NG repositioned COMPARISON: 45 minutes prior IMPRESSION: The NG tube has been slightly advanced with tip likely in the proximal stomach but side port remainin g in the distal esophagus. Recommend advancing by another 7 cm. Again noted is possible new airspace disease in the right lung base that may reflect aspiration.
--- NOTE | 2025-05-02 18:23 | RAD REPORT ---
EXAMINATION: Chest Single View VIEWS: One view CLINICAL INDICATION: Female, 79 years old. NG tube advanced more COMPARISON: Same-day IMPRESSION: The NG tube has been advanced and now terminates in the region of the proximal duodenum/peripyloric r egion. Retracting by 8 cm would showed put the tip in the stomach if desired.
--- NOTE | 2025-05-02 22:30 | RAD REPORT ---
EXAMINATION: Abdomen 1 View (KUB) VIEWS: One view CLINICAL INDICATION: Female, 79 years old. NGT placement COMPARISON: Same-day IMPRESSION: NG tube tip terminates near the peripyloric region. Similar small bowel dilatation. Airspace disease in the lung bases could reflect aspiration.
[2025-05-03] MEDS: ENOXAPARIN 30 MG/0.3 ML SQ SCH (08:56)
[2025-05-03 10:43] LABS: Absolute Lymphocytes (CBC) 0.7 K/uL (0.7-4.9); Hematocrit 35.8 % (36.0-45.0); Hemoglobin 12.1 g/dL (12.0-15.0); MCH 30.6 pg (27.0-35.0); MCHC 33.7 g/dL (32.0-36.0); MCV 90.9 fL (80-100); MPV 9.7 fL (7.6-11.3); Nucleated RBC Absolute Count 0.0 (0-0); Nucleated Red Blood Cells % 0.0 % (0-0); RBC Red Blood Cell Count 3.94 M/uL (3.86-4.86); White Blood Count 8.20 thou/uL (4.3-10.9)
[2025-05-03 11:00] LABS: ALT/SGPT 82.0 U/L (13-56); AST/SGOT 56.0 U/L (15-37); Albumin 3.0 g/dL (3.4-5.0); Albumin/Globulin Ratio 0.9 (1.1-1.8); Alkaline Phosphatase 62.0 U/L (45-117); Anion Gap 7.6 mEq/L (5.0-15.0); BUN Blood Urea Nitrogen 12.0 mg/dL (7-18); Globulin 3.2 g/dL (2.3-3.5); Glucose Level 120.0 mg/dL (74-106); Lipase 13.0 U/L (13-75); Magnesium 2.0 mg/dL (1.6-2.4); Potassium 3.6 mEq/L (3.5-5.1)
--- NOTE | 2025-05-03 12:22 | P.PN ---
Date of Service: 05/03/25 Subjective: uncomfortable no BM Physical Exam: GEN: Alert, oriented, NAD CV: Regular rate and rhythm, no edema Pulm:Nonlabored respirations on room air, clear bilaterally ABD: soft, abdominal tenderness, nondistended Neuro: Normal speech, normal affect NGT to LIWS in place Problem List: Mechanical small bowel obstruction Atrial-fibrillation on chronic anticoagulation Hypertension Mechanical small bowel obstruction on admission, presents with worsening RUQ abdominal pain associated with intermittent nausea/vomiting CT abd/pelvis (05/01): high-grade SBO with abrupt transition point in the central abdomen. Possibly secondary to adhesions. A separate small bowel anastomosis that may be contributing to a chronic stricture/partial SBO Dr. Ferrell recommending conservative medical management. Possible surgery if no improvement NGT placed to LIWS overnight. pain control, IV hydration while NPO Repeat CT ordered to re-eval Atrial-fibrillation on chronic anticoagulation Hypertension confirm home meds, restart as appropriate takes eliquis at home VTE: Lovenox Code: Full Dispo: Home Pending SBO resolves, tolerating diet Time Spent Managing Pts Care (In Minutes): 55
--- NOTE | 2025-05-03 13:30 | RAD REPORT ---
EXAMINATION: CT Abdomen Pelvis Wo Contrast CLINICAL INDICATION: Female, 79 years old. SBO TECHNIQUE: CT abdomen and pelvis was performed, without IV contrast, as per department protocol. Axia l, sagittal and coronal reconstructions were obtained. One or more of the following dose reduction techniques were used: Automated exposure control, adjustment of the mA and kV according to the patien t size, and iterative reconstruction. Unless otherwise specified, incidental findings do not require dedicated imaging follow-up. COMPARISON: 05/01/2025 FINDINGS: The lack of intravenous contrast limits the sensitivity of this exam for evaluation of solid visceral organs, vascular structures, and retroperitoneum. LOWER CHEST: Patchy bibasilar airspace opacities more so in the right middle lobe. Mild bronchiectasi s in the lower lobes. LIVER: Normal in size and contour. No focal lesion. BILIARY SYSTEM: No suspicious abnormalities. SPLEEN: Normal size. No focal lesion. PANCREAS: No mass, ductal dilation, or kathryn-pancreatic fluid. ADRENALS: Normal; no mass. KIDNEYS AND URETERS: Normal size and contour. No hydronephrosis. URINARY BLADDER: Normal contour. GASTROINTESTINAL TRACT: Enteric tube reaches the first part of duodenum. Stable marked dilation of ce ntral abdominal small bowel with air-fluid levels. This extends past the small bowel anastomosis. There is transition to nondistended small bowel on axial image 52 series 201. Filling defect at the l evel of the transition could relate to a stricture or small mass, although evaluation is limited in the absence of IV contrast. The orally ingested contrast reaches the level of the transition but does not extend beyond. Level of transition is similar to the prior exam. No abnormal fluid collections. Mild free fluid particularly along the right paracolic gutter. APPENDIX: Normal appendix. LYMPH NODES: No lymphadenopathy. MUSCULOSKELETAL: No acute or suspicious osseous abnormality. ADDITIONAL FINDINGS: Right total hip arthroplasty hardware.. IMPRESSION: Stable high-grade small bowel obstruction, with focal abrupt transition in the distal small bowel in the right hemiabdomen, stable in appearance. Filling defect at the level of the transition could relate to a stricture or small mass. Mild free abdominal fluid, increased since the prior exam.
[2025-05-03] MEDS: HYDRALAZINE HCL 20 MG/ML VIAL IV PRN (15:40)
[2025-05-04 05:40] LABS: Absolute Lymphocytes (CBC) 0.7 K/uL (0.7-4.9); Hematocrit 37.6 % (36.0-45.0); Hemoglobin 13.0 g/dL (12.0-15.0); MCH 30.8 pg (27.0-35.0); MCHC 34.5 g/dL (32.0-36.0); MCV 89.5 fL (80-100); MPV 8.9 fL (7.6-11.3); Nucleated RBC Absolute Count 0.0 (0-0); Nucleated Red Blood Cells % 0.0 % (0-0); RBC Red Blood Cell Count 4.21 M/uL (3.86-4.86); White Blood Count 7.10 thou/uL (4.3-10.9)
[2025-05-04 05:53] LABS: Anion Gap 7.3 mEq/L (5.0-15.0); BUN Blood Urea Nitrogen 11.0 mg/dL (7-18); Glucose Level 124.0 mg/dL (74-106); Potassium 3.3 mEq/L (3.5-5.1)
--- NOTE | 2025-05-04 08:30 | RAD REPORT ---
EXAM: XR of the abdomen HISTORY: Abdominal pain SBO COMPARISON: None FINDINGS: XR of the abdomen shows a nonspecific, nonobstructive bowel gas pattern. Enteric tube tip i s in the stomach. No suspicious calcifications are seen. Right hip arthroplasty changes. The bones are unremarkable. IMPRESSION: Nonobstructive bowel gas pattern.
[2025-05-04] MEDS: ENOXAPARIN 40 MG/0.4 ML SQ SCH (08:49)
[2025-05-04] MEDS: KCL 20 MEQ/100 mL IVPB 20 MEQ/100 ML BAG IV SCH (08:49)
--- NOTE | 2025-05-04 11:46 | P.PN ---
Date of Service: 05/04/25 Subjective: feeling better vitals stable breathing okay on RA flatus overnight, no BM Physical Exam: GEN: Alert, oriented, NAD CV: Regular rate and rhythm, no edema Pulm: Nonlabored respirations on room air, clear bilaterally ABD: soft, abdominal tenderness, nondistended Neuro: Normal speech, normal affect NGT to LIWS in place Problem List: Mechanical small bowel obstruction Atrial-fibrillation on chronic anticoagulation Hypertension Mechanical small bowel obstruction on admission, presents with worsening RUQ abdominal pain associated with intermittent nausea/vomiting CT abd/pelvis (05/01): high-grade SBO with abrupt transition point in the central abdomen. Possibly secondary to adhesions. A separate small bowel anastomosis that may be contributing to a chronic stricture/partial SBO Repeat CT showed similar SBO and mildly increased free abdominal fluid compared to CT 05/01 KUB today shows resolving SBO pain control, IV hydration while NPO Dr. Ferrell is following NGT placed to WS Diet per surgery Atrial-fibrillation on chronic anticoagulation Hypertension confirm home meds, restart as appropriate takes eliquis at home VTE: Lovenox Code: Full Dispo: Home Pending SBO resolves, tolerating diet Time Spent Managing Pts Care (In Minutes): 55
[2025-05-05 05:51] VITALS: BMI 22.2
[2025-05-05 06:04] LABS: Absolute Lymphocytes (CBC) 0.9 K/uL (0.7-4.9); Hematocrit 37.6 % (36.0-45.0); Hemoglobin 13.1 g/dL (12.0-15.0); MCH 30.9 pg (27.0-35.0); MCHC 34.8 g/dL (32.0-36.0); MCV 88.9 fL (80-100); MPV 8.6 fL (7.6-11.3); Nucleated RBC Absolute Count 0.0 (0-0); Nucleated Red Blood Cells % 0.1 % (0-0); RBC Red Blood Cell Count 4.23 M/uL (3.86-4.86); White Blood Count 6.60 thou/uL (4.3-10.9)
[2025-05-05 06:21] LABS: Anion Gap 8.0 mEq/L (5.0-15.0); BUN Blood Urea Nitrogen 12.0 mg/dL (7-18); Glucose Level 117.0 mg/dL (74-106); Magnesium 2.1 mg/dL (1.6-2.4); Potassium 4.0 mEq/L (3.5-5.1)
--- NOTE | 2025-05-05 07:53 | RAD REPORT ---
EXAM: AP view(s) of the abdomen Abdomen 1 View (KUB) HISTORY: PSBO COMPARISON: 05/03/2025 FINDINGS: Similar dilated small bowel centrally. Some of the enteric contrast is seen within the colon.. No suspicious calcifications are seen. Right hip arthroplasty. Other: NG tube in the distal stomach. IMPRESSION: Dilated small bowel centrally similar to yesterday. Enteric contrast is present within th e colon which excludes the presence of a high-grade bowel obstruction. A partial obstruction may still be present.
--- NOTE | 2025-05-05 12:06 | P.PN ---
Date of Service: 05/05/25 Subjective: small hard BM overnight minimal NGT output no new issues afebrile Physical Exam: GEN: Alert, oriented, NAD CV: Regular rate and rhythm, no edema Pulm: Nonlabored respirations on room air, clear bilaterally ABD: soft, abdominal tenderness, nondistended Neuro: Normal speech, normal affect NGT to LIWS in place Problem List: Mechanical small bowel obstruction Atrial-fibrillation on chronic anticoagulation Hypertension Mechanical small bowel obstruction on admission, presents with worsening RUQ abdominal pain associated with intermittent nausea/vomiting CT abd/pelvis (05/01): high-grade SBO with abrupt transition point in the central abdomen. Possibly secondary to adhesions. A separate small bowel anastomosis that may be contributing to a chronic stricture/partial SBO Repeat CT showed similar SBO and mildly increased free abdominal fluid compared to CT 05/01 KUB today shows resolving SBO pain control, IV hydration while NPO Dr. Ferrell is following NGT placed to LIWS Daily KUB. May still need surgery if minimal/no improvement. Diet per surgery Atrial-fibrillation on chronic anticoagulation Hypertension confirm home meds, restart as appropriate takes eliquis at home VTE: Lovenox Code: Full Dispo: Home Pending SBO resolves, tolerating diet Time Spent Managing Pts Care (In Minutes): 55
[2025-05-06 06:00] LABS: Absolute Lymphocytes (CBC) 0.7 K/uL (0.7-4.9); Hematocrit 37.2 % (36.0-45.0); Hemoglobin 12.7 g/dL (12.0-15.0); MCH 30.8 pg (27.0-35.0); MCHC 34.1 g/dL (32.0-36.0); MCV 90.5 fL (80-100); MPV 8.9 fL (7.6-11.3); Nucleated RBC Absolute Count 0.0 (0-0); Nucleated Red Blood Cells % 0.0 % (0-0); RBC Red Blood Cell Count 4.11 M/uL (3.86-4.86); White Blood Count 6.20 thou/uL (4.3-10.9)
[2025-05-06 06:18] LABS: Anion Gap 8.5 mEq/L (5.0-15.0); BUN Blood Urea Nitrogen 11.0 mg/dL (7-18); Glucose Level 118.0 mg/dL (74-106); Potassium 3.5 mEq/L (3.5-5.1)
[2025-05-06] MEDS: KCL 20 MEQ/100 mL IVPB 20 MEQ/100 ML BAG IV SCH (07:25)
--- NOTE | 2025-05-06 07:55 | RAD REPORT ---
EXAM: XR Abdomen 1 View (KUB) HISTORY: [facility] MAIN PSBO COMPARISON: None FINDINGS: Single view of the abdomen shows persistent colonic contrast. Persistent central abdominal small bowel distention. No suspicious calcifications are seen. The bones are unremarkable. IMPRESSION: Stable findings, with no observable residual small bowel contrast, suggesting partial sma ll bowel obstruction.
[2025-05-06] MEDS: Ringers Lactate 250 ML IV ONE (10:19)
--- NOTE | 2025-05-06 10:36 | P.PN ---
Date of Service: 05/06/25 Subjective: Doing okay. no BM yet. NGT clamped this morning. she reports ongoing chronic dizziness everyday with ambulating for over a year. doesn't feel like the room is spinning Dizziness is at its worst with positional changes/getting up, Dizziness continues but more mild when ambulating states she was recently switched from amiodarone to metoprolol ~2 weeks ago Physical Exam: GEN: Alert, oriented, NAD CV: Regular rate and rhythm, no edema Pulm: Nonlabored respirations on room air, clear bilaterally ABD: soft, abdominal tenderness, nondistended Neuro: Normal speech, normal affect NGT to LIWS in place Problem List: Mechanical small bowel obstruction Chronic dizziness Atrial-fibrillation on chronic anticoagulation Hypertension Mechanical small bowel obstruction on admission, presents with worsening RUQ abdominal pain associated with intermittent nausea/vomiting CT abd/pelvis (05/01): high-grade SBO with abrupt transition point in the central abdomen. Possibly secondary to adhesions. A separate small bowel anastomosis that may be contributing to a chronic stricture/partial SBO Repeat CT showed similar SBO and mildly increased free abdominal fluid compared to CT 05/01 KUB today shows stable partial SBO pain control, IV hydration while NPO Dr. Ferrell is following NGT clamp trial this morning Daily KUB. May still need surgery if minimal/no improvement. Diet per surgery Chronic dizziness reports dealing with ongoing dizziness/lightheadedness since her initial SBO ~1 year ago Family at bedside denies any prior issues leading up to that hospitalization 1 year ago. Dizziness is at its worst with positional changes/getting up, continue but more mild after movement. Denies sensation of room spinning. Unclear etiology. Possibly secondary to medication (?Amio, Losartan) They report starting multiple new meds around the same time ~1 year ago and recently switched from amio to metoprolol ~2 weeks ago Continue to monitor for worsening dizziness Atrial-fibrillation on chronic anticoagulation Hypertension confirm home meds, restart as appropriate Sees Dr. Hammonds. Recently switched from amiodarone to metoprolol ~2 weeks ago takes eliquis at home VTE: Lovenox Code: Full Dispo: Home Pending SBO resolves, tolerating diet Time Spent Managing Pts Care (In Minutes): 55
--- NOTE | 2025-05-06 10:53 | P.PN ---
Subjective Date of Service: 05/06/25 Chief Complaint: Abdominal Pain Subjective: Improving (Patient states that she feels better and less full today. She is not passing gas and had a bowel movement 2 days ago was her last bowel movement. She has been ambulatory but minimally.) Physical Examination - Vital Signs Temperature: 98.0 F Blood Pressure: 156/81 Pulse: 75 Respirations: 18 Pulse Ox (%): 95 - Physical Exam General: Alert, In no apparent distress, Oriented x3, Cooperative Cardiovascular: Regular rate/rhythm Gastrointestinal: Soft and benign (Patient's abdominal exam is improved from yesterday less distended nontender no rebound no guarding no peritonitis bowel sounds are present.) Neurological: Normal speech Assessment And Plan - Current Problems (Diagnosis) (1) Small bowel obstruction Current Visit: No Status: Acute Plan: Patient is an 79-year-old woman who presented to the hospital on Thursday05-01-2025 with evidence of a bowel obstruction. She had a CT which showed concern for high-grade obstruction she had nausea vomiting and abdominal distention with pain. When I saw her in the hospital we had an NG tube placed which gave her significant symptomatic improvement and I ordered a p.o. contrast 2-hour delay CT scan of the abdomen and pelvis which showed continued small bowel obstruction. Patient stated however she felt significantly better and wanted to wait 1 more day at least. We got a KUB the next day which showed contrast made its way to her colon. She did have a small bowel movement shortly thereafter. She states her abdominal distention improved slightly each day and she had no pain. She passed minimal amounts of gas since her admission. Today on 05/06/2025 she states she feels significantly better with less distention less gassiness. She would prefer to not have surgery at this time and continues to try nonoperative management. -Serial abdominal exams. - Patient states she has dizziness for approximately 1 year intermittently. She is unsure if it is related to medications possibly for her atrial fibrillation or other medications. This continues intermittently. - Will give 250 cc bolus of LR. - Ambulate only with assist. - Daily KUBs. - I have explained that if the patient does not have significant return of bowel function that even though she might feel better due to the NG tube decompression and the fact that she may not have a complete obstruction but rather a partial obstruction she still may require surgical intervention if she is unable to pass a clamp trial with her NG tube or unable to tolerate p.o. diet due to her partial obstruction. Therefore we will continue exams daily with KUBs and serial assessment. I have explained that the longer we go however the less likelihood she will have success with nonoperative management as she has had 2 CT scans which show that water-soluble contrast was unable to make it through in a timely fashion. She however due to her complex abdominal history is fearful and is refusing surgery at this time. As she has no signs of bowel ischemia with normal white blood cell count and a normal lactic acid on last check with improvement of her overall abdominal symptoms it is reasonable to continue nonoperative management at this time. As such I will continue following along with her. - I will recommend a short clamp trial today to see how patient responds. Ultimately we will need to p.o. challenge her. - Continue medical management per primary team
[2025-05-07 06:09] LABS: Absolute Lymphocytes (CBC) 0.6 K/uL (0.7-4.9); Hematocrit 35.0 % (36.0-45.0); Hemoglobin 12.0 g/dL (12.0-15.0); MCH 30.9 pg (27.0-35.0); MCHC 34.2 g/dL (32.0-36.0); MCV 90.1 fL (80-100); MPV 8.7 fL (7.6-11.3); Nucleated RBC Absolute Count 0.0 (0-0); Nucleated Red Blood Cells % 0.0 % (0-0); RBC Red Blood Cell Count 3.88 M/uL (3.86-4.86); White Blood Count 6.20 thou/uL (4.3-10.9)
[2025-05-07 06:26] LABS: Anion Gap 9.5 mEq/L (5.0-15.0); BUN Blood Urea Nitrogen 8.0 mg/dL (7-18); Glucose Level 119.0 mg/dL (74-106); Potassium 3.5 mEq/L (3.5-5.1)
--- NOTE | 2025-05-07 07:04 | RAD REPORT ---
EXAM: XR of the abdomen HISTORY: Abdominal pain PSBO COMPARISON: 05/06/2025 FINDINGS: XR of the abdomen shows contrast in the colon.. Mildly distended bowel loops are seen in th e central abdomen similar to yesterday's examination. Enteric tube tip is in the distal stomach. Right-sided hip arthroplasty. No free air seen. IMPRESSION: Stable examination since yesterday's study.
[2025-05-07] MEDS: KCL 20 MEQ/100 mL IVPB 20 MEQ/100 ML BAG IV SCH (08:22)
--- NOTE | 2025-05-07 11:45 | P.PN ---
Subjective Date of Service: 05/07/25 Chief Complaint: Abdominal Pain Subjective: Improving (Patient had a large bowel movement today feels no nausea has had her NG tube clamped with less than 150 cc in 18 hours. Feels significant improvement.) Physical Examination - Vital Signs Temperature: 97.9 F Blood Pressure: 163/67 Pulse: 72 Respirations: 16 Pulse Ox (%): 95 - Physical Exam General: Alert, In no apparent distress, Oriented x3, Cooperative Gastrointestinal: Other (Soft, nontender nondistended no rebound or guarding no focal peritonitis, benign abdominal exam.) Assessment And Plan - Current Problems (Diagnosis) (1) Small bowel obstruction Current Visit: No Status: Acute Plan: Patient is an 79-year-old woman who presented to the hospital on Thursday05-01-2025 with evidence of a bowel obstruction. She had a CT which showed concern for high-grade obstruction she had nausea vomiting and abdominal distention with pain. When I saw her in the hospital we had an NG tube placed which gave her significant symptomatic improvement and I ordered a p.o. contrast 2-hour delay CT scan of the abdomen and pelvis which showed continued small bowel obstruction. Patient stated however she felt significantly better and wanted to wait 1 more day at least. We got a KUB the next day which showed contrast made its way to her colon. She did have a small bowel movement shortly thereafter. She states her abdominal distention improved slightly each day and she had no pain. She passed minimal amounts of gas since her admission. Today on 05/06/2025 she states she feels significantly better with less distention less gassiness. She would prefer to not have surgery at this time and continues to try nonoperative management. -Serial abdominal exams. - Patient states she has dizziness for approximately 1 year intermittently. She is unsure if it is related to medications possibly for her atrial fibrillation or other medications. This continues intermittently. - Will give 250 cc bolus of LR. - Ambulate only with assist. - Daily KUBs. - I have explained that if the patient does not have significant return of bowel function that even though she might feel better due to the NG tube decompression and the fact that she may not have a complete obstruction but rather a partial obstruction she still may require surgical intervention if she is unable to pass a clamp trial with her NG tube or unable to tolerate p.o. diet due to her partial obstruction. Therefore we will continue exams daily with KUBs and serial assessment. I have explained that the longer we go however the less likelihood she will have success with nonoperative management as she has had 2 CT scans which show that water-soluble contrast was unable to make it through in a timely fashion. She however due to her complex abdominal history is fearful and is refusing surgery at this time. As she has no signs of bowel ischemia with normal white blood cell count and a normal lactic acid on last check with improvement of her overall abdominal symptoms it is reasonable to continue nonoperative management at this time. As such I will continue following along with her. -DC NG tube at this time and start sips of clear liquid diet. Will make n.p.o. at midnight just to ensure if there is any failure of p.o. challenge she will be prepared for surgical intervention should it be necessary. - Continue medical management per primary team
--- NOTE | 2025-05-07 12:02 | P.PN ---
Date of Service: 05/07/25 Subjective: Feeling much better today had large BM with relief earlier denies nausea or pain no new issues, vitals stable Physical Exam: GEN: Alert, oriented, NAD CV: Regular rate and rhythm, no edema Pulm: Nonlabored respirations on room air, clear bilaterally ABD: soft, nontender, nondistended Neuro: Normal speech, normal affect Problem List: Mechanical small bowel obstruction Chronic dizziness Atrial-fibrillation on chronic anticoagulation Hypertension Mechanical small bowel obstruction on admission, presents with worsening RUQ abdominal pain associated with intermittent nausea/vomiting CT abd/pelvis (05/01): high-grade SBO with abrupt transition point in the central abdomen. Possibly secondary to adhesions. A separate small bowel anastomosis that may be contributing to a chronic stricture/partial SBO Repeat CT showed similar SBO and mildly increased free abdominal fluid compared to CT 05/01 KUB today shows stable partial SBO pain control, IV hydration while NPO Dr. Ferrell is following Patient had large BM with relief today after KUB. DC NGT and advance to clears per surgery Chronic dizziness reports dealing with ongoing dizziness/lightheadedness since her initial SBO ~1 year ago Family at bedside denies any prior issues leading up to that hospitalization 1 year ago. Dizziness is at its worst with positional changes/getting up, continue but more mild after movement. Denies sensation of room spinning. Unclear etiology. Possibly secondary to medication (?Amio, Losartan) They report starting multiple new meds around the same time ~1 year ago and r ecently switched from amio to metoprolol ~2 weeks ago Continue to monitor for worsening dizziness Atrial-fibrillation on chronic anticoagulation Hypertension confirm home meds, restart as appropriate Sees Dr. Hammonds. Recently switched from amiodarone to metoprolol ~2 weeks ago takes eliquis at home VTE: Lovenox Code: Full Dispo: Home Pending diet advancement, continued improvement DC NGT Time Spent Managing Pts Care (In Minutes): 35
[2025-05-08 07:08] LABS: Absolute Lymphocytes (CBC) 0.7 K/uL (0.7-4.9); Hematocrit 31.7 % (36.0-45.0); Hemoglobin 11.0 g/dL (12.0-15.0); MCH 31.1 pg (27.0-35.0); MCHC 34.7 g/dL (32.0-36.0); MCV 89.7 fL (80-100); MPV 8.3 fL (7.6-11.3); Nucleated RBC Absolute Count 0.0 (0-0); Nucleated Red Blood Cells % 0.0 % (0-0); RBC Red Blood Cell Count 3.53 M/uL (3.86-4.86); White Blood Count 4.60 thou/uL (4.3-10.9)
[2025-05-08 07:27] LABS: Anion Gap 6.4 mEq/L (5.0-15.0); BUN Blood Urea Nitrogen 7.0 mg/dL (7-18); Glucose Level 110.0 mg/dL (74-106); Potassium 3.4 mEq/L (3.5-5.1)
--- NOTE | 2025-05-08 10:01 | RAD REPORT ---
EXAM: XR Abdomen 1 View (KUB) HISTORY: [facility] MAIN f/u pSBO, advanced diet COMPARISON: 05/07/2025 FINDINGS: Single view of the abdomen shows a nonspecific, nonobstructive bowel gas pattern, with decr eased gaseous distention of the unopacified bowel in the central abdomen. Persistent contrast throughout the colon. No suspicious calcifications are seen. The bones are unremarkable. IMPRESSION: Interval decrease in the degree of diffuse is distention of nonopacified bowel in the rosemarie tral abdomen.
--- NOTE | 2025-05-08 10:12 | P.PN ---
Date of Service: 05/08/25 Subjective: feeling better today tolerating diet without issues not as dizzy when ambulating very small BM, +flatus vitals stable Physical Exam: GEN: Alert, oriented, NAD CV: Regular rate and rhythm, no edema Pulm: Nonlabored respirations on room air, clear bilaterally ABD: soft, nontender, nondistended Neuro: Normal speech, normal affect Problem List: Mechanical small bowel obstruction Chronic dizziness Atrial-fibrillation on chronic anticoagulation Hypertension Mechanical small bowel obstruction on admission, presents with worsening RUQ abdominal pain associated with intermittent nausea/vomiting CT abd/pelvis (05/01): high-grade SBO with abrupt transition point in the central abdomen. Possibly secondary to adhesions. A separate small bowel anastomosis that may be contributing to a chronic stricture/partial SBO Repeat CT showed similar SBO and mildly increased free abdominal fluid compared to CT 05/01 Repat KUB showing improvement each day Dr. Ferrell is following pain control, IV hydration NGT dc'd 05/07 Advance to full liquid diet. Chronic dizziness reports dealing with ongoing dizziness/lightheadedness since her initial SBO ~1 year ago Family at bedside denies any prior issues leading up to that hospitalization 1 year ago. Dizziness is at its worst with positional changes/getting up, continue but more mild after movement. Denies sensation of room spinning. Unclear etiology. Possibly secondary to medication (Amio, Losartan) likely losartan recently switched from amio to metoprolol ~2 weeks ago Continue to monitor for worsening dizziness feels better / less dizzy Atrial-fibrillation on chronic anticoagulation Hypertension confirm home meds, restart as appropriate Sees Dr. Hammonds. Recently switched from amiodarone to metoprolol ~2 weeks ago takes eliquis at home VTE: Lovenox Code: Full Dispo: Home, ~1 day Pending diet advancement, continued improvement Time Spent Managing Pts Care (In Minutes): 35
[2025-05-08] MEDS: ENSURE MAX PROTEIN 330 ML LIQUID PO SCH (21:00)
[2025-05-08 21:47] VITALS: O2SAT 98
[2025-05-09 06:04] LABS: Absolute Lymphocytes (CBC) 0.8 K/uL (0.7-4.9); Hematocrit 31.6 % (36.0-45.0); Hemoglobin 11.0 g/dL (12.0-15.0); MCH 30.9 pg (27.0-35.0); MCHC 34.8 g/dL (32.0-36.0); MCV 88.8 fL (80-100); MPV 8.3 fL (7.6-11.3); Nucleated RBC Absolute Count 0.0 (0-0); Nucleated Red Blood Cells % 0.1 % (0-0); RBC Red Blood Cell Count 3.56 M/uL (3.86-4.86); White Blood Count 4.20 thou/uL (4.3-10.9)
[2025-05-09 06:18] LABS: Anion Gap 8.4 mEq/L (5.0-15.0); BUN Blood Urea Nitrogen 7.0 mg/dL (7-18); Glucose Level 109.0 mg/dL (74-106); Potassium 3.4 mEq/L (3.5-5.1)
[2025-05-09] MEDS: POTASSIUM 25 MEQ EFFERV TAB PO ONE (07:04)
[2025-05-09 12:56] LABS: Anion Gap 9.0 mEq/L (5.0-15.0); BUN Blood Urea Nitrogen 11.0 mg/dL (7-18); Glucose Level 100.0 mg/dL (74-106); Potassium 4.0 mEq/L (3.5-5.1)
[2025-05-09 16:47] VITALS: BP 155/73; TEMP 98.4
--- NOTE | 2025-05-09 17:37 | P.DS ---
Admission Date: 05/01/25 Discharge Date: 05/09/25 Disposition: DC HOME/HOME HEALTH CARE Discharge Condition: FAIR Reason for Admission: Abdominal Pain Hospital Course: Problem List: Mechanical small bowel obstruction Chronic dizziness Atrial-fibrillation on chronic anticoagulation Patient with past medical history of hypertension, Atrial fibrillation; Hypertensive disorder; bowel obstruction , previous hysterectomy, repair of inguinal hernia; bowel resection; total abdominal hysterectomy; right hip repair presented with abdominal pain, right upper quadrant, associated with recurrent bouts of vomiting and nausea. CT of the abdomen and pelvis done in the emergency department showed evidence of multiple loops of bowel consistent with mechanical small bowel obstruction. Patient was admitted to the medical floor and evaluated by general surgery Dr. Ferrell The SBO was managed nonsurgically, and patient was monitored for need for surgery however serial CT scans and KUB showed gradual improvement in the small bowel loops dilatation. Patient eventually passed flatus and had a bowel movement. Diet was advanced to soft consistency which she tolerated. Patient seen and evaluated by Dr. Ferrell and deemed stable for discharge. Home medications resumed without any changes. Vital Signs/Physical Exam: Temp Pulse Resp BP Pulse Ox 98.4 F 63 16 155/73 H 95 05/09/25 16:00 05/09/25 16:00 05/09/25 16:00 05/09/25 16:00 05/09/25 16:00 General: Alert, In no apparent distress, Oriented x3 HEENT: Mucous membr. moist/pink, Sclerae nonicteric Neck: Supple, JVD not distended Respiratory: Clear to auscultation bilaterally, Normal air movement Cardiovascular: No edema, Regular rate/rhythm, Normal S1 S2 Gastrointestinal: Soft and benign, Non-distended, No tenderness Musculoskeletal: No swelling, No warmth Integumentary: No rashes, No cyanosis Neurological: Normal speech, Normal strength at 5/5 x4 extr Laboratory Data at Discharge: WBC 4.20 thou/uL (4.3-10.9) L 05/09/25 05:29 Hgb 11.0 g/dL (12.0-15.0) L 05/09/25 05:29 Hct 31.6 % (36.0-45.0) L 05/09/25 05:29 Plt Count 184 thou/uL (152-406) 05/09/25 05:29 Sodium 139 mEq/L (136-145) 05/09/25 12:33 Potassium 4.0 mEq/L (3.5-5.1) D 05/09/25 12:33 BUN 11 mg/dL (7-18) 05/09/25 12:33 Creatinine 0.56 mg/dL (0.55-1.02) 05/09/25 12:33 Glucose 100 mg/dL (74-106) 05/09/25 12:33 Phosphorus 4.0 mg/dL (2.5-4.9) 05/02/25 04:41 Magnesium 2.1 mg/dL (1.6-2.4) 05/05/25 05:44 Total Bilirubin 0.8 mg/dL (0.2-1.0) 05/03/25 09:57 AST 56 U/L (15-37) H 05/03/25 09:57 ALT 82 U/L (13-56) H 05/03/25 09:57 Alkaline Phosphatase 62 U/L (45-117) 05/03/25 09:57 Lipase 13 U/L (13-75) 05/03/25 09:57 Home Medications: Calcium/Vits D3/C/K2/Minerals [Bone Essentials Capsule] 1 cap PO BID 08/09/24 Cholecalciferol (Vitamin D3) [Vitamin D3] 25 mcg PO DAILY 08/09/24 Famotidine [Pepcid AC] 20 mg PO DAILYPRN PRN 08/09/24 Losartan Potassium 25 mg PO DAILY 08/09/24 Magnesium Oxide [Magnesium] 250 mg PO BID 08/09/24 Apixaban [Eliquis] 5 mg PO BID 08/20/24 Docusate [Colace Cap*] 200 mg PO DAILY PRN cap 08/20/24 Melatonin [Melatonin*] 3 mg PO BEDTIME PRN PRN 08/28/24 Amiodarone HCl [Cordarone*] 200 mg PO DAILY 11/02/24 Eitan/Poly/Dexa Opth [Maxitrol*] 5 ml EACH EYE BID 11/02/24 Physician Discharge Instructions: Patient with past medical history of hypertension, Atrial fibrillation; Hypertensive disorder; bowel obstruction , previous hysterectomy, repair of inguinal hernia; bowel resection; total abdominal hysterectomy; right hip repair presented with abdominal pain, right upper quadrant, associated with recurrent bouts of vomiting and nausea. CT of the abdomen and pelvis done in the emergency department showed evidence of multiple loops of bowel consistent with mechanical small bowel obstruction. Patient was admitted to the medical floor and evaluated by general surgery Dr. Ferrell The SBO was managed nonsurgically, and patient was monitored for need for surgery however serial CT scans and KUB showed gradual improvement in the small bowel loops dilatation. Patient eventually passed flatus and had a bowel movement. Diet was advanced to soft consistency which she tolerated. Patient seen and evaluated by Dr. Ferrell and deemed stable for discharge. Home medications resumed without any changes. [facility] Ultrasound Technologist Sonographer Call Lizzie Glasgow RN at [phone] for questions or concerns after discharge. Expect a call within 1-2 business days of discharge. Alternates: [facility] Benton [phone], [facility] Bosch [phone] Diet: Soft diet Followup: Akbar Espino, DO [Primary Care Provider] - 1-2 Weeks Time spent managing pt's care (in minutes): 34
== END 2025-05-09 19:45 | disposition home or self-care (01) | DRG 390 ==
LOC: ER 16:41 → ERHOLD 18:42 → 4TH 20:07
PROVIDERS: ADMIT Family Medicine; ATTEND Internal Medicine
PROC: 0D9670Z Drainage of Stomach with Drainage Device, Via Natural or Artificial Opening (ICD-10-PCS; principal; 2025-05-02)
DX: K56.51 Intestinal adhesions [bands], with partial obstruction (principal); I48.91 Unspecified atrial fibrillation; I10 Essential (primary) hypertension; I27.20 Pulmonary hypertension, unspecified; Z88.5 Allergy status to narcotic agent; Z79.01 Long term (current) use of anticoagulants; Z79.899 Other long term (current) drug therapy; Z90.710 Acquired absence of both cervix and uterus
CPT/HCPCS: 36415; 71045; 74018; 74176; 74177; 80048; 80053; 83605; 83690; 83735; 84100; 84132; 85025; 94760; 96361; 96374; 96375; 99285; J0360; J1650; J2270; J2405; J3480; J7030; J7120; J7799; Q9967